=== PATIENT | male | born 1955 | race Caucasian/White ===

== ENCOUNTER 2021-09-30 09:52 | Inpatient (IN) | payer MEDICARE, OTHER, SELFPAY ==
[2021-09-30] VITALS (9 sets, daily range): BP systolic 112–136; BP diastolic 65–77; PULSE 71–115; RESP 16–35; TEMP 36.6–38; O2SAT 85–93; BMI 31.5; BMI 30.1
--- NOTE | 2021-09-30 10:04 | EKG12_ITS ---
Test Reason : SOB Blood Pressure : / mmHG Vent. Rate : 103 BPM Atrial Rate : 103 BPM P-R Int : 146 ms QRS Dur : 134 ms QT Int : 354 ms P-R-T Axes : 037 -07 115 degrees QTc Int : 463 ms Sinus tachycardia Left bundle branch block Abnormal ECG Confirmed by RENETTA KINNEY, SHER ([id number]), film editor supervisor CHIDI KATZ ([id number]) on 10/01/2021 11:36:23 AM Referred By: LEAH Confirmed By:SHER JACKSON MD
--- NOTE | 2021-09-30 10:05 | EDS_ITS ---
HPI History of Present Illness Chief Complaint: Shortness of Breath Informant: patient Narrative Narrative: 66-year-old male presenting via EMS from [facility] urgent care where he was noted to be hypoxic and febrile. Patient is deaf and and reads lips. He tells me he first got sick on 11 September. Apparently he went to urgent care and was prescribed doxycycline albuterol prednisone and Tessalon Perles. States he did not get any better so he went back today. He reports not having a primary care physician. He denies any medical problems. He is not Covid vaccinated. [facility] Medical History (Updated 09/30/21 @ 11:[address] Micah Rutledge DO) Deaf Medical History unable to obtain Home Medications NK 09/30/21 [History Last Taken Unknown] Allergy/AdvReac Type Severity Reaction Status Date / Time No Known Allergies Allergy Verified 09/30/21 10:01 Surgical History unable to obtain Social History (Updated 09/30/21 @ 10:[address] Micah Rutledge DO) Smoking Status: Current every day smoker tobacco type: cigarettes substance use type: does not use ROS ROS ED Constitutional Constitutional ED: Reports fever(s); Denies chills or weight loss Eyes Eyes: Denies change in vision or diplopia ENT ENT ED: Reports rhinorrhea and sore throat; Denies ear pain Cardiovascular Cardiovascular: Denies chest pain, orthopnea, palpitations or racing heartbeat Respiratory/Chest Respiratory/Chest: Reports cough, dyspnea and dyspnea on exertion; Denies orthopnea Gastrointestinal Gastrointestinal: Denies abdominal pain, diarrhea, nausea or vomiting Genitourinary Genitourinary ED: Denies dysuria, hematuria or urinary frequency Musculoskeletal Musculoskeletal: Reports myalgias; Denies arthralgias Integumentary Denies abscess or rash Neurologic Neurologic: Denies headache(s) or weakness Psychiatric Psychiatric: Denies anxiety, depression, suicidal ideation or suicidal thoughts Endocrine Endocrinology: Denies polydipsia, polyphagia or polyuria Allergic/Immunologic Allergic/Immunologic ED: Denies mouth swelling, tongue swelling or urticaria EXAM Physical Exam Const Vital Signs: 09/30/21 09:54 09/30/21 09:56 09/30/21 10:05 Temperature 100.4 F H 100.4 F H Temperature Source Oral Oral Pulse Rate 101 H 115 H Respiratory Rate 30 H 35 H Respiratory Effort Respiratory Depth Respiratory Pattern Blood Pressure 136/74 H 136/74 H Blood Pressure Mean 94 94 Pulse Ox 85 91 93 Oxygen Delivery Method Room Air Nasal Cannula Nasal Cannula Oxygen Flow Rate (L/min) 4 4 09/30/21 10:34 09/30/21 11:00 Temperature Temperature Source Pulse Rate 88 Respiratory Rate 19 H Respiratory Effort Short of Breath Labored Accessory Muscle Use Respiratory Depth Shallow Respiratory Pattern Tachypnea Blood Pressure 134/69 H Blood Pressure Mean 90 Pulse Ox 90 Oxygen Delivery Method Nasal Cannula Nasal Cannula Oxygen Flow Rate (L/min) 3 5 Positive well nourished and well developed General Appearance ED: well developed HEENT Reports normocephalic, head/scalp atraumatic, TM's clear and moist mucous membranes Negative for atraumatic Tympanic Membrane ED: Yes TM's clear Eyes PERRL and EOMs intact bilaterally Neck no lymphadenopathy, supple and no JVD Resp normal respiratory effort and clear to auscultation bilaterally Cardio regular rhythm and no murmurs Rate: tachycardic GI normal to inspection, nondistended, normoactive bowel sounds and non-tender Palpation: soft Back/Spine no CVA tenderness and normal ROM Extremity normal to inspection General Extremety ED: Negative for edema General Extremity: Negative for edema Neuro oriented x3 and CN's II-XII intact bilaterally Sensorium / Orientation: alert Motor Exam: strength 5/5 throughout Psych mental status grossly normal Mood & Affect: Negative for depressed or tearful Skin no rashes or lesions noted and no wounds MDM MDM MDM Narrative Medical decision making narrative: Patient's white count is 6 lactic acid 1.2. Troponin 45. My interpretation of the chest x-ray is diffuse pulmonary infiltrates. CTA of the chest does not demonstrate any pulmonary embolism but is consistent with pneumonitis. Patient will receive Decadron. I will also write for Tylenol. He is currently requiring 5 L nasal cannula at rest for pulse ox of 90%. Lab Data Attestation: I reviewed the patient's lab results. Labs: Laboratory Results - last 24 hr 09/30/21 09/30/21 09/30/21 09:55 09:55 10:15 WBC 6.0 RBC 5.60 Hgb 16.7 H Hct 49.8 MCV 88.9 MCH 29.8 MCHC 33.5 RDW Std Deviation 46.8 H RDW Coeff of [place] 14.2 Plt Count 106 L MPV 12.2 H Immature Gran % (Auto) 0.500 Neut % (Auto) 81.9 H Lymph % (Auto) 13.0 L [place] % (Auto) 4.3 Eos % (Auto) 0.0 Baso % (Auto) 0.3 Absolute Neuts (auto) 4.9 Absolute Lymphs (auto) 0.78 L Nucleated RBC % 0 Sodium 136 Potassium 3.9 Chloride 102 Carbon Dioxide 26.0 Anion Gap 8 BUN 20 H Creatinine 1.02 Estim Creat Clear Calc 74.85 Est GFR (MDRD) Af Amer 94 Est GFR (MDRD) Non-Af 77 BUN/Creatinine Ratio 19.6 Glucose 123 H Lactic Acid 1.2 Calcium 8.2 L Total Bilirubin 0.40 AST 103 H ALT 45 Alkaline Phosphatase 66 Troponin I High Sens 45 Total Protein 7.2 Albumin 2.8 L Globulin 4.4 H Albumin/Globulin Ratio 0.6 L Radiography Diagnostic Testing: Clinical Impression(s) from Imaging Studies Chest X-Ray 09/30/21 10:45 IMPRESSION: Bilateral pulmonary infiltrates worse in the right hemithorax in the peripheral distribution suggestive of pneumonitis associated with Covid. Electronically Signed: Jayesh Rivera MD at 11:02 EST , Service support , Chest CTA 09/30/21 10:53 IMPRESSION: No evidence of pulmonary embolism. Diffuse bilateral alveolar infiltrates worse in the right hemithorax. Pneumonitis secondary to Covid should be ruled out. Electronically Signed: Jayesh Rivera MD at 11:33 EST , Service support , EKG Initial EKG: Attestation: I personally reviewed and interpreted this EKG as follows: Comments: Sinus tachycardia with a ventricular rate of 103 bpm. Noted left bundle branch block Discharge Plan Dx/Rx/DC Orders Clinical Impression: COVID-19, Acute hypoxemic respiratory failure due to COVID-19 Disposition Disposition: [facility]
[2021-09-30 10:11] LABS: Absolute Lymphocyte Count 0.78 X10^3/uL (0.83-4.51); Absolute Neutrophil Count 4.9 X10^3/uL (2.0-7.7); Basophil# 0.02 X10^3/uL; Basophil% 0.3 % (0-1); Hematocrit 49.8 % (40-54); Hemoglobin 16.7 g/dL (13.0-16.5); Lymphocyte # 0.78 X10^3/ul (0.83-4.51); Mean Corp Hgb Conc 33.5 g/dL (32-36); Mean Corpuscular Hgb 29.8 pg (27.0-32.0); Mean Corpuscular Volume 88.9 fL (80-94); Mean Platelet Vol. 12.2 fl (6.2-12.0); Monocyte# 0.26 X10^3/uL; Monocyte% 4.3 % (0-10); NRBC Flagged by Analyzer 0 % (0-5); Neutrophil # 4.93 X10^3/uL (2.7-7.7); Neutrophil % 81.9 % (47-70); POSITIVE MORPHOLOGY YES; Platelet Count 106 K/mm3 (150-450); RBC Distribution Width CV 14.2 % (11.6-14.6); RBC Distribution Width SD 46.8 fl (35.1-43.9)
[2021-09-30 10:12] LABS: Differential Indicated SCAN CRITERIA MET
[2021-09-30 10:28] LABS: ALB/GLOB Ratio 0.6 RATIO (0.9-2.4); AST(SGOT) 103 U/L (15-37); Alanine Aminotransfer ALT/SGPT 45 U/L (16-61); Albumin, Serum 2.8 g/dL (3.2-5.0); Alkaline Phosphatase 66 U/L (45-117); Anion Gap 8 (5-15); BUN 20 mg/dL (7-18); BUN/Creat Ratio 19.6 RATIO (10-20); Calcium,Total 8.2 mg/dL (8.5-10.1); Chloride 102 mmol/L (98-107); Creatinine, Serum 1.02 mg/dL (0.70-1.30); EST Glomerular Filtration Rate 77 mL/min (>60); Est Glom Filt Rate - Afr Amer 94 mL/min (>60); Estimated Creatinine Clearance 74.85 ml/min; Globulin 4.4 g/dL (2.2-4.2); Glucose 123 mg/dL (74-106); Potassium 3.9 mmol/L (3.5-5.1); Protein, Total 7.2 g/dL (6.4-8.2); Sodium Level 136 mmol/L (136-145); Troponin-I HS 45 pg/mL (3.0-78.0)
--- NOTE | 2021-09-30 10:45 | RAD_ITS ---
STUDY: X-RAY CHEST REASON FOR EXAM: Male, 66 years old. Cough TECHNIQUE: Single AP portable view of the chest. COMPARISON: None. FINDINGS: EKG electrodes are seen. Patchy bilateral pulmonary infiltrates worse in the right hemithorax with a tendency to worry peripheral distribution. No pneumonitis secondary to Covid should be ruled out. There is no demonstrated pleural abnormality. Normal size heart. Normal mediastinum and tamela. Normal visualized pulmonary arteries. Normal visualized aortic arch and descending thoracic aorta. Normal visualized thoracic spine. Normal visualized ribs, clavicles, and shoulders. There is no demonstrated abnormality of the visualized soft tissue structures of the upper abdomen. RAD/Chest 1 View (Portable) IMPRESSION: Bilateral pulmonary infiltrates worse in the right hemithorax in the peripheral distribution suggestive of pneumonitis associated with Covid. Electronically Signed: Jayesh Rivera MD at 11:02 EST , Service support ,
--- NOTE | 2021-09-30 10:53 | CT_ITS ---
STUDY: CTA CHEST REASON FOR EXAM: Male, 66 years old. Fever. Decreased pulse oximetry and shortness of breath. RADIATION DOSAGE (If Supplied By Facility): CTDIvol = ( 11.82 ) mGy, DLP = ( 480.69 ) mGycm TECHNIQUE: The examination was performed with the intravenous administration of IV 100mL Isovue-370. Post-processing of the angiographic images was performed, with multiplanar reformation and 3D reconstruction. Individualized dose optimization techniques were used for this CT. COMPARISON: Comparison is made with prior chest radiograph done earlier today. FINDINGS: Normal enhancement of the main pulmonary artery and right and left pulmonary arteries. Normal enhancement of the bilateral peripheral pulmonary arteries. There is no demonstrated pulmonary embolism. Normal thoracic aorta and visualized great vessels. There is no demonstrated aortic dissection. There are calcifications of the coronary arteries. Normal mediastinum. Normal hilar regions. Normal visualized trachea and bronchi. The lungs are well expanded. Diffuse bilateral alveolar infiltrates involving both upper and lower lobes worse in the right hemithorax. Pneumonitis secondary to Covid should be ruled out. Normal pleura. Normal chest wall structures. Normal osseous structures. Normal visualized upper abdomen. CT/CTA Chest W/WO Contrast IMPRESSION: No evidence of pulmonary embolism. Diffuse bilateral alveolar infiltrates worse in the right hemithorax. Pneumonitis secondary to Covid should be ruled out. Electronically Signed: Jayesh Rivera MD at 11:33 EST , Service support ,
[2021-09-30 10:57] LABS: Lactic Acid 1.2 mmol/L (0.4-1.9)
[2021-09-30] MEDS: Acetaminophen 500 MG Tablet 1000 MG PO (12:00)
[2021-09-30] MEDS: dexAMETHasone 4 MG Tablet 6 MG PO (12:00)
--- NOTE | 2021-09-30 18:20 | PCM.HP.STD ---
HPI - General General Date of Admission: 09/30/21 HPI Narrative BELLO SANTIAGO, is a 66 M who presents from home with worsening coughing and shortness of breath. He states that he started out with rhinorrhea on 09/11/2021. He said that this was feeling okay for about 10 days and then over the last 7days his coughing has gotten worse and his shortness of breath has gotten worse. He got tested for Covid today and had a positive PCR with a negative antigen. He is unvaccinated. He does not require oxygen at baseline and is coming in the edition on 5 L nasal cannula. He is 20 days with symptoms therefore he is outside the window for remdesivir, will continue with Decadron. He states that he was initially told that he had an upper respiratory infection and bronchitis so did have a course of prednisone as an outpatient as well. [facility] Medical History Deaf Smoker Medical History unable to obtain Home Medications NK 09/30/21 [History Last Taken Unknown] Allergy/AdvReac Type Severity Reaction Status Date / Time No Known Allergies Allergy Verified 09/30/21 10:01 Family History (Updated 09/30/21 @ 18:[address] River Quiroz MD) Other CVA (cerebral vascular accident) Cancer Surgical History unable to obtain no surgical history Social History (Updated 09/30/21 @ 10:[address] Micah Rutledge DO) Smoking Status: Current every day smoker tobacco type: cigarettes substance use type: does not use ROS Constitutional Constitutional: Reports fever(s); Denies chills, fatigue or malaise Eyes Eyes: Denies blurry vision ENT HEENT: Denies headache(s) or nasal discharge Cardiovascular Cardiovascular: Denies chest pain, dyspnea on exertion or syncope Respiratory/Chest Respiratory/Chest: Reports cough and shortness of breath at rest; Denies shortness of breath with exertion Gastrointestinal Gastrointestinal: Denies constipation, diarrhea, nausea or vomiting Genitourinary Genitourinary: Denies dysuria Neurologic Neurologic: Denies focal weakness, numbness or tremor(s) Psychiatric Psychiatric: Denies anxiety or depression Vital Signs Vital Signs Vital Signs: 09/30/21 09:54 09/30/21 09:56 09/30/21 10:05 Temperature 100.4 F H 100.4 F H Temperature Source Oral Oral Pulse Rate 101 H 115 H Respiratory Rate 30 H 35 H Respiratory Effort Respiratory Depth Respiratory Pattern Blood Pressure 136/74 H 136/74 H Blood Pressure Mean 94 94 Blood Pressure Source Blood Pressure Position Blood Pressure Location Pulse Ox 85 91 93 Oxygen Delivery Method Room Air Nasal Cannula Nasal Cannula Oxygen Flow Rate (L/min) 4 4 09/30/21 10:34 09/30/21 11:00 09/30/21 12:13 Temperature 98.3 F Temperature Source Temporal Pulse Rate 88 102 H Respiratory Rate 19 H 24 H Respiratory Effort Short of Breath Labored Accessory Muscle Use Respiratory Depth Shallow Respiratory Pattern Tachypnea Blood Pressure 134/69 H 133/70 H Blood Pressure Mean 90 91 Blood Pressure Source Blood Pressure Position Blood Pressure Location Pulse Ox 90 93 Oxygen Delivery Method Nasal Cannula Nasal Cannula Nasal Cannula Oxygen Flow Rate (L/min) 3 5 09/30/21 13:05 09/30/21 14:42 09/30/21 15:49 Temperature 98.6 F Temperature Source Oral Pulse Rate 71 Respiratory Rate 16 Respiratory Effort Normal Respiratory Depth Normal Respiratory Pattern Normal Blood Pressure 112/65 Blood Pressure Mean 80 Blood Pressure Source Monitor Blood Pressure Position Semi-Fowlers Blood Pressure Location Right Arm Pulse Ox 92 Oxygen Delivery Method Room Air High Flow High Flow Oxygen Flow Rate (L/min) 8 8 09/30/21 15:51 Temperature Temperature Source Pulse Rate Respiratory Rate Respiratory Effort Normal Respiratory Depth Normal Respiratory Pattern Normal Blood Pressure Blood Pressure Mean Blood Pressure Source Blood Pressure Position Blood Pressure Location Pulse Ox 92 Oxygen Delivery Method Nasal Cannula Oxygen Flow Rate (L/min) 10 Weight Weight: 216 lb 4.375 oz Body Mass Index (BMI) 30.1 Physical Exam Const alert, oriented x3 and no apparent distress General Appearance: cooperative HEENT normocephalic and moist oral mucous membranes Eyes PERRL, EOMs intact bilaterally and conjunctivae normal Neck supple and no JVD Resp normal respiratory effort, no retractions and no use of accessory muscles Auscultation: crackles; Negative for rales, rhonchi or wheezes Cardio regular rate, regular rhythm, S1 normal heart sound, S2 normal heart sound and no murmurs GI soft to palpation, non-tender and non-distended; Negative for hepatosplenomegaly Extremity no clubbing, cyanosis or edema Skin no rashes or lesions noted Neuro no focal motor deficits and no sensory deficits noted Psych affect normal Appearance: appropriate Results Lab / Micro Data Result Diagrams: 09/30/21 09:55 11/10/21 09:55 Labs: Laboratory Results - last 24 hr 09/30/21 09:55: WBC 6.0, RBC 5.60, Hgb 16.7 H, Hct 49.8, MCV 88.9, MCH 29.8, MCHC 33.5, RDW Std Deviation 46.8 H, RDW Coeff of [place] 14.2, Plt Count 106 L, MPV 12.2 H, Immature Gran % (Auto) 0.500, Neut % (Auto) 81.9 H, Lymph % (Auto) 13.0 L, [place] % (Auto) 4.3, Eos % (Auto) 0.0, Baso % (Auto) 0.3, Absolute Neuts (auto) 4.9, Absolute Lymphs (auto) 0.78 L, Nucleated RBC % 0 09/30/21 09:55: Sodium 136, Potassium 3.9, Chloride 102, Carbon Dioxide 26.0, Anion Gap 8, BUN 20 H, Creatinine 1.02, Estim Creat Clear Calc 74.85, Est GFR (MDRD) Af Amer 94, Est GFR (MDRD) Non-Af 77, BUN/Creatinine Ratio 19.6, Glucose 123 H, Calcium 8.2 L, Total Bilirubin 0.40, AST 103 H, ALT 45, Alkaline Phosphatase 66, Troponin I High Sens 45, Total Protein 7.2, Albumin 2.8 L, Globulin 4.4 H, Albumin/Globulin Ratio 0.6 L 09/30/21 10:15: Lactic Acid 1.2 09/30/21 11:08: COVID-19 ([place]) Detected Micro: Microbiology 09/30/21 10:00 Nasal Secretion SARS-CoV-2 Antigen (Rapid) - Final Radiology Impression Chest X-Ray 09/30/21 10:45 IMPRESSION: Bilateral pulmonary infiltrates worse in the right hemithorax in the peripheral distribution suggestive of pneumonitis associated with Covid. Electronically Signed: Jayesh Rivera MD at 11:02 EST , Service support , Chest CTA 09/30/21 10:53 IMPRESSION: No evidence of pulmonary embolism. Diffuse bilateral alveolar infiltrates worse in the right hemithorax. Pneumonitis secondary to Covid should be ruled out. Electronically Signed: Jayesh Rivera MD at 11:33 EST , Service support , Assessment & Plan Assessment/Plan (1) Acute hypoxemic respiratory failure due to COVID-19: PLAN: 1. Acute hypoxic respiratory failure secondary to COVID-19 pneumonia -Symptoms started about 20 days ago therefore he'll be out of the office tomorrow -CT of the chest was negative for PE -Continue with Decadron but does not meet requirements for remdesivir -Continue with a dose of Lasix secondary to crackles -Currently afebrile without a leukocytosis therefore we'll hold off on any empiric antibiotics DVT: Lovenox Charges/Coding Visit Charges Inpatient E&M: 82888 Init Hosp L2
[2021-09-30] MEDS: Furosemide 20 MG/2 ML VIAL IV (20:43)
[2021-09-30] MEDS: 0.9% Saline Lock 10 ML Syringe IV (20:43)
--- NOTE | 2021-10-01 00:46 | PCS.PANDOC ---
PANDEMIC DOCUMENTATION INITIATED: Date: 09/30/2021 Time:
[2021-10-01 05:43] VITALS: BP 137/71; PULSE 77; RESP 18; TEMP 37.2; O2SAT 93
[2021-10-01 07:00] VITALS: O2SAT 89
[2021-10-01 08:00] LABS: Absolute Lymphocyte Count 0.91 X10^3/uL (0.83-4.51); Absolute Neutrophil Count 6.2 X10^3/uL (2.0-7.7); Basophil# 0.01 X10^3/uL; Basophil% 0.1 % (0-1); Hematocrit 47.8 % (40-54); Hemoglobin 16.4 g/dL (13.0-16.5); Lymphocyte # 0.91 X10^3/ul (0.83-4.51); Lymphocyte % 12.5 % (19-41); Mean Corp Hgb Conc 34.3 g/dL (32-36); Mean Corpuscular Hgb 30.1 pg (27.0-32.0); Mean Corpuscular Volume 87.9 fL (80-94); Mean Platelet Vol. 12.8 fl (6.2-12.0); Monocyte# 0.16 X10^3/uL; Monocyte% 2.2 % (0-10); NRBC Flagged by Analyzer 0 % (0-5); Neutrophil # 6.19 X10^3/uL (2.7-7.7); Neutrophil % 84.8 % (47-70); POSITIVE MORPHOLOGY YES; Platelet Count 125 K/mm3 (150-450); RBC Distribution Width CV 14.5 % (11.6-14.6); RBC Distribution Width SD 46.5 fl (35.1-43.9); Red Blood Count 5.44 M/mm3 (4.6-6.2); White Blood Count 7.3 K/mm3 (4.4-11.0)
[2021-10-01 08:05] LABS: Differential Indicated SCAN CRITERIA MET
[2021-10-01 08:39] LABS: Anion Gap 9 (5-15); BUN 24 mg/dL (7-18); BUN/Creat Ratio 31.6 RATIO (10-20); Calcium,Total 8.5 mg/dL (8.5-10.1); Chloride 103 mmol/L (98-107); Creatinine, Serum 0.76 mg/dL (0.70-1.30); EST Glomerular Filtration Rate 109 mL/min (>60); Est Glom Filt Rate - Afr Amer 131 mL/min (>60); Estimated Creatinine Clearance 76.35 ml/min; Glucose 161 mg/dL (74-106); Sodium Level 135 mmol/L (136-145)
[2021-10-01] MEDS: Enoxaparin 40 MG/0.4 ML Syringe SC (08:50)
[2021-10-01] MEDS: dexAMETHasone 4 MG Tablet 6 MG PO (08:51)
--- NOTE | 2021-10-01 11:18 | PCM.PN.HOSP ---
Subjective Subjective Feels little better, oxygen requirements are now up to 8 L Objective Data Objective Data Vital Signs: Vital Signs Temp Pulse Resp BP Pulse Ox 99 F 77 18 137/71 H 93 10/01/21 05:43 10/01/21 05:43 10/01/21 05:43 10/01/21 05:43 10/01/21 05:43 Oxygen Flow Rate (L/min) 8 Oxygen Delivery Method Nasal Cannula Weight: 216 lb 4.375 oz Body Mass Index (BMI) 30.1 Intake & Output: Intake and Output for Last 24 Hours 09/30/21 10/01/21 10/02/21 03:59 03:59 03:59 Output Total 350 / 350 800 / 800 Balance -350 / -350 -800 / -800 Lab / Micro Data Result Diagrams: 10/01/21 07:15 10/01/21 07:15 Labs: Laboratory Results - last 24 hr 09/30/21 11:08: COVID-19 ([place]) Detected 10/01/21 07:15: WBC 7.3, RBC 5.44, Hgb 16.4, Hct 47.8, MCV 87.9, MCH 30.1, MCHC 34.3, RDW Std Deviation 46.5 H, RDW Coeff of [place] 14.5, Plt Count 125 L, MPV 12.8 H, Immature Gran % (Auto) 0.400, Neut % (Auto) 84.8 H, Lymph % (Auto) 12.5 L, [place] % (Auto) 2.2, Eos % (Auto) 0.0, Baso % (Auto) 0.1, Absolute Neuts (auto) 6.2, Absolute Lymphs (auto) 0.91, Nucleated RBC % 0 10/01/21 07:15: Sodium 135 L, Potassium 4.0, Chloride 103, Carbon Dioxide 23.0, Anion Gap 9, BUN 24 H, Creatinine 0.76, Estim Creat Clear Calc 76.35, Est GFR (MDRD) Af Amer 131, Est GFR (MDRD) Non-Af 109, BUN/Creatinine Ratio 31.6 H, Glucose 161 H, Calcium 8.5 Micro: Microbiology 09/30/21 10:00 Nasal Secretion SARS-CoV-2 Antigen (Rapid) - Final Radiography Diagnostic Testing: Radiology Impression Chest CTA 09/30/21 10:53 IMPRESSION: No evidence of pulmonary embolism. Diffuse bilateral alveolar infiltrates worse in the right hemithorax. Pneumonitis secondary to Covid should be ruled out. Electronically Signed: Jayesh Rivera MD at 11:33 EST , Service support , Physical Exam Const alert, oriented x3 and no apparent distress General Appearance: cooperative HEENT normocephalic and moist oral mucous membranes Eyes PERRL, EOMs intact bilaterally and conjunctivae normal Neck supple and no JVD Resp normal respiratory effort, no retractions and no use of accessory muscles Auscultation: crackles; Negative for rales, rhonchi or wheezes Cardio regular rate, regular rhythm, S1 normal heart sound, S2 normal heart sound and no murmurs GI soft to palpation, non-tender and non-distended; Negative for hepatosplenomegaly Extremity no clubbing, cyanosis or edema Skin no rashes or lesions noted Neuro no focal motor deficits and no sensory deficits noted Psych affect normal Appearance: appropriate Assessment & Plan Assessment/Plan (1) Acute hypoxemic respiratory failure due to COVID-19: PLAN: 1. Acute hypoxic respiratory failure secondary to COVID-19 pneumonia -Symptoms started about 20 days ago therefore he'll be out of the office tomorrow -CT of the chest was negative for PE -Continue with Decadron but does not meet requirements for remdesivir -Continue with a dose of Lasix secondary to crackles -Currently afebrile without a leukocytosis therefore we'll hold off on any empiric antibiotics DVT: Lovenox Charges/Coding Visit Charges Inpatient E&M: 85671 Subs Hosp L2
[2021-10-01] MEDS: Furosemide 20 MG/2 ML VIAL IV (11:48)
[2021-10-01] MEDS: 0.9% Saline Lock 10 ML Syringe IV (11:48)
--- NOTE | 2021-10-01 13:30 | CASEMGMT ---
RN CM RADIO DIVISION CAPTAIN CM to room to meet with patient for initial transition planning/care coordination assessment. MIGUELINA GURROLA introduced self and role at [facility]. Pt voices understanding and consents to assessment at this time. Pt sitting up in recliner chair in no distress at this time. Pt is A/O at this time and answers all questions appropriately. Pt is deaf, but able to read lips well. Care providers, pharmacy, and demographics verified/updated at this time. PCP: No PCP. States the last PCP he had moved away and he has not seen anyone for about 3 years. Provided w/list of local PCP's. Specialists: none Preferred Pharmacy: [facility] Retail Insurance: MCR, [employer] Prescription Benefit: Yes Living Will/HPOA: Pt does not currently have LW/HCPOA and would like to talk w/SW to completed. Pt would like to list daughter, Caitlin Drake, as POA. SW, Susie, made aware. LNOK: , Melissa. Pt states they have been for 28 years but plan to divorce next year. They have 5 children and 11 grandchildren. Living Arrangements: Lives w/ in ranch-style home w/basement. Denies difficulty w/stairs. 2-3 steps to enter home. Independent w/ADL's. does most home mgmt tasks. Transportation: Pt states drives self and states no transportation concerns at this time. Pt states he drove himself to the ER and his dtr, Caitlin, took his vehicle home. Family will help get pt back home. DME: Rt [employer]KA prosthesis. Does not have home O2. Verbally reviewed list of local DME companies w/pt and he chooses [employer]. Pt states no need for further DME at this time. HHC/SNF: No hx of either. Pt denies needs and no needs identified. Pt wishes to return home and states has no concerns with going home at time of discharge. CM to follow for home oxygen needs and any further discharge planning/needs. Pt voices no further concerns/needs at this time. Advised pt to ask for CM if any further questions/concerns/needs arise. Voices understanding. PLAN: Home. Follow for possible need of Home O2. Rocio MULTANI RN, CM
--- NOTE | 2021-10-01 14:29 | CASEMGMT ---
Social Work Completed advanced directives with patient. Pt named Caitlin prieto. Contacted Caitlin to verify she agrees and contact information - confirmed. Copies placed on chart. Rosalinda Rosen, RADIOLOGIC TECHNOLOGIST MAMMOGRAM SCIENTOLOGIST
[2021-10-01 14:39] VITALS: BP 107/59; PULSE 88; RESP 18; TEMP 37.2; O2SAT 94
--- NOTE | 2021-10-01 18:01 | NURSING ---
Pt sitting up in chair with eyes closed. no discomfort noted.
[2021-10-01 21:27] VITALS: BP 120/73; PULSE 76; RESP 18; TEMP 36.7; O2SAT 93
[2021-10-02] VITALS (9 sets, daily range): BP systolic 122–127; BP diastolic 68–78; PULSE 70–87; RESP 18–20; TEMP 36.6–37.3; O2SAT 90–93
[2021-10-02 06:43] LABS: Anion Gap 8 (5-15); BUN 29 mg/dL (7-18); BUN/Creat Ratio 32.4 RATIO (10-20); Calcium,Total 8.5 mg/dL (8.5-10.1); Chloride 102 mmol/L (98-107); Creatinine, Serum 0.89 mg/dL (0.70-1.30); EST Glomerular Filtration Rate 90 mL/min (>60); Est Glom Filt Rate - Afr Amer 109 mL/min (>60); Estimated Creatinine Clearance 85.78 ml/min; Glucose 136 mg/dL (74-106); Potassium 4.4 mmol/L (3.5-5.1); Sodium Level 135 mmol/L (136-145)
[2021-10-02] MEDS: dexAMETHasone 4 MG Tablet 6 MG PO (09:09)
[2021-10-02] MEDS: Enoxaparin 40 MG/0.4 ML Syringe SC (09:09)
--- NOTE | 2021-10-02 09:15 | NURSING ---
attempt to call daughter julia roque unsuccessful, no answer-will try later
--- NOTE | 2021-10-02 15:24 | PCM.PN.HOSP ---
Subjective Subjective Feels subjectively better than he did when he came in. Still requiring about 10 L nasal cannula Objective Data Objective Data Vital Signs: Vital Signs Temp Pulse Resp BP Pulse Ox 99.1 F 76 20 H 123/69 H 91 10/02/21 09:04 10/02/21 11:00 10/02/21 09:04 10/02/21 09:04 10/02/21 11:00 Oxygen Flow Rate (L/min) 10 Oxygen Delivery Method Nasal Cannula Weight: 216 lb 4.375 oz Body Mass Index (BMI) 30.1 Intake & Output: Intake and Output for Last 24 Hours 10/01/21 10/02/21 10/03/21 03:59 03:59 03:59 Intake Total 350 / 350 Output Total 350 / 350 1325 / 1325 700 / 700 Balance -350 / -350 -1325 / -1325 -350 / -350 Lab / Micro Data Result Diagrams: 10/01/21 07:15 10/02/21 05:40 Labs: Laboratory Results - last 24 hr 10/02/21 05:40: Sodium 135 L, Potassium 4.4, Chloride 102, Carbon Dioxide 25.0, Anion Gap 8, BUN 29 H, Creatinine 0.89, Estim Creat Clear Calc 85.78, Est GFR (MDRD) Af Amer 109, Est GFR (MDRD) Non-Af 90, BUN/Creatinine Ratio 32.4 H, Glucose 136 H, Calcium 8.5 Micro: Microbiology 09/30/21 10:15 Blood Culture (Wb) - Right Hand Blood Culture - Preliminary No growth in 48 hours. 09/30/21 10:15 Blood Culture (Wb) - Anticubital Right Blood Culture - Preliminary No growth in 48 hours. 09/30/21 10:00 Nasal Secretion SARS-CoV-2 Antigen (Rapid) - Final Physical Exam Const alert, oriented x3 and no apparent distress General Appearance: cooperative HEENT normocephalic and moist oral mucous membranes Eyes PERRL, EOMs intact bilaterally and conjunctivae normal Neck supple and no JVD Resp normal respiratory effort, no retractions and no use of accessory muscles Auscultation: crackles; Negative for rales, rhonchi or wheezes Cardio regular rate, regular rhythm, S1 normal heart sound, S2 normal heart sound and no murmurs GI soft to palpation, non-tender and non-distended; Negative for hepatosplenomegaly Extremity no clubbing, cyanosis or edema Skin no rashes or lesions noted Neuro no focal motor deficits and no sensory deficits noted Psych affect normal Appearance: appropriate Assessment & Plan Assessment/Plan (1) Acute hypoxemic respiratory failure due to COVID-19: PLAN: 1. Acute hypoxic respiratory failure secondary to COVID-19 pneumonia -He is out of precautions -CT of the chest was negative for PE -Continue with Decadron but does not meet requirements for remdesivir -Continue with a dose of Lasix secondary to crackles -Currently afebrile without a leukocytosis therefore we'll hold off on any empiric antibiotics DVT: Lovenox Charges/Coding Visit Charges Inpatient E&M: 56831 Subs Hosp L2
[2021-10-02] MEDS: Furosemide 40 MG/4 ML Vial IV (15:29)
[2021-10-02] MEDS: 0.9% Saline Lock 10 ML Syringe IV (15:30)
[2021-10-03] VITALS (14 sets, daily range): BP systolic 112–137; BP diastolic 66–76; PULSE 60–88; RESP 16–22; TEMP 36.6–36.9; O2SAT 90–95
--- NOTE | 2021-10-03 05:03 | CPS ---
rt called to 316 due to desaturation. Nursing informed rt that patient was increased to 14 lpm via green high flow nc. patient was 86% at time of visit. patient placed on airvo starting at 20 lpm. rt had to gradually increase patient to 35 lpm at 90% to achieve a sp02 of 90-91%. patients nurse aware.
[2021-10-03 09:23] LABS: Absolute Lymphocyte Count 2.07 X10^3/uL (0.83-4.51); Absolute Neutrophil Count 8.6 X10^3/uL (2.0-7.7); Basophil# 0.06 X10^3/uL; Basophil% 0.5 % (0-1); Eosinophil# 0.04 X10^3/uL; Eosinophils% 0.4 % (0-5); Hematocrit 49.2 % (40-54); Hemoglobin 16.7 g/dL (13.0-16.5); Lymphocyte # 2.07 X10^3/ul (0.83-4.51); Lymphocyte % 18.7 % (19-41); Mean Corp Hgb Conc 33.9 g/dL (32-36); Mean Corpuscular Volume 88.5 fL (80-94); Mean Platelet Vol. 12.4 fl (6.2-12.0); Monocyte# 0.26 X10^3/uL; Monocyte% 2.3 % (0-10); NRBC Flagged by Analyzer 0 % (0-5); Neutrophil # 8.58 X10^3/uL (2.7-7.7); Neutrophil % 77.6 % (47-70); POSITIVE MORPHOLOGY YES; Platelet Count 179 K/mm3 (150-450); RBC Distribution Width CV 14.3 % (11.6-14.6); RBC Distribution Width SD 46.1 fl (35.1-43.9); Red Blood Count 5.56 M/mm3 (4.6-6.2); White Blood Count 11.1 K/mm3 (4.4-11.0)
[2021-10-03 09:40] LABS: Anion Gap 6 (5-15); BUN 38 mg/dL (7-18); Calcium,Total 8.6 mg/dL (8.5-10.1); Chloride 104 mmol/L (98-107); Creatinine, Serum 0.88 mg/dL (0.70-1.30); EST Glomerular Filtration Rate 91 mL/min (>60); Est Glom Filt Rate - Afr Amer 111 mL/min (>60); Estimated Creatinine Clearance 86.76 ml/min; Glucose 134 mg/dL (74-106); Potassium 4.5 mmol/L (3.5-5.1); Sodium Level 136 mmol/L (136-145)
[2021-10-03 09:44] LABS: Differential Indicated SCAN CRITERIA MET
[2021-10-03] MEDS: dexAMETHasone 4 MG Tablet 6 MG PO (09:45)
[2021-10-03] MEDS: Enoxaparin 40 MG/0.4 ML Syringe SC (09:45)
[2021-10-03 09:59] LABS: Atypical Lymphocyte 1+ %; Differential Comment SCANNED
[2021-10-03] MEDS: 0.9% Saline Lock 10 ML Syringe IV (11:07)
[2021-10-03] MEDS: Furosemide 40 MG/4 ML Vial IV (11:08)
--- NOTE | 2021-10-03 12:38 | PCM.PN.HOSP ---
Subjective Subjective Doing well but requiring increased oxygen requirements and now is on air Vo at 35 L/min at an FiO2 of 90%. Objective Data Objective Data Vital Signs: Vital Signs Temp Pulse Resp BP Pulse Ox 97.9 F 67 22 H 112/70 94 10/03/21 09:00 10/03/21 12:00 10/03/21 09:00 10/03/21 09:00 10/03/21 12:00 Oxygen Flow Rate (L/min) 35 Oxygen Delivery Method Airvo Weight: 216 lb 4.375 oz Body Mass Index (BMI) 30.1 Intake & Output: Intake and Output for Last 24 Hours 10/02/21 10/03/21 10/04/21 03:59 03:59 03:59 Intake Total 700 / 700 300 / 300 Output Total 1325 / 1325 1800 / 1800 600 / 600 Balance -1325 / -1325 -1100 / -1100 -300 / -300 Lab / Micro Data Result Diagrams: 10/03/21 09:00 10/03/21 09:00 Labs: Laboratory Results - last 24 hr 10/03/21 09:00: WBC 11.1 H, RBC 5.56, Hgb 16.7 H, Hct 49.2, MCV 88.5, MCH 30.0, MCHC 33.9, RDW Std Deviation 46.1 H, RDW Coeff of [place] 14.3, Plt Count 179, MPV 12.4 H, Immature Gran % (Auto) 0.500, Neut % (Auto) 77.6 H, Lymph % (Auto) 18.7 L, [place] % (Auto) 2.3, Eos % (Auto) 0.4, Baso % (Auto) 0.5, Absolute Neuts (auto) 8.6 H, Absolute Lymphs (auto) 2.07, Nucleated RBC % 0, Differential Comment SCANNED, Atypical Lymphocytes 1+ 10/03/21 09:00: Sodium 136, Potassium 4.5, Chloride 104, Carbon Dioxide 26.0, Anion Gap 6, BUN 38 H, Creatinine 0.88, Estim Creat Clear Calc 86.76, Est GFR (MDRD) Af Amer 111, Est GFR (MDRD) Non-Af 91, BUN/Creatinine Ratio 43.0 H, Glucose 134 H, Calcium 8.6 Micro: Microbiology 09/30/21 10:15 Blood Culture (Wb) - Right Hand Blood Culture - Preliminary No growth in 48 hours. 09/30/21 10:15 Blood Culture (Wb) - Anticubital Right Blood Culture - Preliminary No growth in 48 hours. 09/30/21 10:00 Nasal Secretion SARS-CoV-2 Antigen (Rapid) - Final Physical Exam Const alert, oriented x3 and no apparent distress General Appearance: cooperative HEENT normocephalic and moist oral mucous membranes Eyes PERRL, EOMs intact bilaterally and conjunctivae normal Neck supple and no JVD Resp normal respiratory effort, no retractions and no use of accessory muscles Auscultation: crackles; Negative for rales, rhonchi or wheezes Cardio regular rate, regular rhythm, S1 normal heart sound, S2 normal heart sound and no murmurs GI soft to palpation, non-tender and non-distended; Negative for hepatosplenomegaly Extremity no clubbing, cyanosis or edema Skin no rashes or lesions noted Neuro no focal motor deficits and no sensory deficits noted Psych affect normal Appearance: appropriate Assessment & Plan Assessment/Plan (1) Acute hypoxemic respiratory failure due to COVID-19: PLAN: 1. Acute hypoxic respiratory failure secondary to COVID-19 pneumonia -He is out of precautions -CT of the chest was negative for PE -Continue with Decadron but does not meet requirements for remdesivir -Continue with a dose of Lasix secondary to crackles -Currently afebrile therefore we'll hold off on any empiric antibiotics -Given his increased oxygen requirements with careful, I will consult infectious disease and start him on baricitinib DVT: Lovenox Charges/Coding Visit Charges Inpatient E&M: 31623 Subs Hosp L2
[2021-10-04] VITALS (16 sets, daily range): BP systolic 121–127; BP diastolic 68–78; PULSE 56–82; RESP 18–28; TEMP 36.4–36.7; O2SAT 86–94
[2021-10-04 08:03] LABS: Absolute Neutrophil Count 7.3 X10^3/uL (2.0-7.7); Basophil# 0.03 X10^3/uL; Basophil% 0.3 % (0-1); Hematocrit 46.4 % (40-54); Hemoglobin 15.7 g/dL (13.0-16.5); Mean Corp Hgb Conc 33.8 g/dL (32-36); Mean Corpuscular Hgb 29.7 pg (27.0-32.0); Mean Corpuscular Volume 87.9 fL (80-94); Mean Platelet Vol. 12.4 fl (6.2-12.0); Monocyte% 5.4 % (0-10); NRBC Flagged by Analyzer 0 % (0-5); Neutrophil # 7.33 X10^3/uL (2.7-7.7); Neutrophil % 78.5 % (47-70); POSITIVE MORPHOLOGY YES; Platelet Count 205 K/mm3 (150-450); RBC Distribution Width CV 13.9 % (11.6-14.6); RBC Distribution Width SD 45.1 fl (35.1-43.9); Red Blood Count 5.28 M/mm3 (4.6-6.2); White Blood Count 9.3 K/mm3 (4.4-11.0)
[2021-10-04 08:08] LABS: Differential Indicated SCAN CRITERIA MET
[2021-10-04 08:20] LABS: ALB/GLOB Ratio 0.4 RATIO (0.9-2.4); AST(SGOT) 72 U/L (15-37); Alanine Aminotransfer ALT/SGPT 62 U/L (16-61); Albumin, Serum 2.1 g/dL (3.2-5.0); Alkaline Phosphatase 59 U/L (45-117); Anion Gap 8 (5-15); BUN 44 mg/dL (7-18); BUN/Creat Ratio 53.2 RATIO (10-20); Calcium,Total 8.5 mg/dL (8.5-10.1); Chloride 102 mmol/L (98-107); Creatinine, Serum 0.83 mg/dL (0.70-1.30); EST Glomerular Filtration Rate 99 mL/min (>60); Est Glom Filt Rate - Afr Amer 119 mL/min (>60); Estimated Creatinine Clearance 91.98 ml/min; Globulin 4.7 g/dL (2.2-4.2); Glucose 116 mg/dL (74-106); Potassium 4.3 mmol/L (3.5-5.1); Protein, Total 6.8 g/dL (6.4-8.2); Sodium Level 137 mmol/L (136-145)
[2021-10-04 09:21] LABS: Atypical Lymphocyte 1+ %; Differential Comment SCANNED
--- NOTE | 2021-10-04 09:54 | PN.HOSP_ITS ---
Subjective Subjective Doing well, no issues overnight. Stable on Arava Objective Data Objective Data Vital Signs: Vital Signs Temp Pulse Resp BP Pulse Ox 97.9 F 67 18 127/73 H 88 10/04/21 02:44 10/04/21 07:41 10/04/21 02:44 10/04/21 02:44 10/04/21 07:41 Oxygen Flow Rate (L/min) 35 Oxygen Delivery Method Airvo Weight: 216 lb 4.375 oz Body Mass Index (BMI) 30.1 Intake & Output: Intake and Output for Last 24 Hours 10/03/21 10/04/21 10/05/21 03:59 03:59 03:59 Intake Total 700 / 700 1200 / 1200 Output Total 1800 / 1800 1300 / 1300 Balance -1100 / -1100 -100 / -100 Lab / Micro Data Result Diagrams: 10/04/21 06:35 10/04/21 06:35 Labs: Laboratory Results - last 24 hr 10/03/21 09:00: Differential Comment SCANNED, Atypical Lymphocytes 1+ 10/04/21 06:35: WBC 9.3, RBC 5.28, Hgb 15.7, Hct 46.4, MCV 87.9, MCH 29.7, MCHC 33.8, RDW Std Deviation 45.1 H, RDW Coeff of [place] 13.9, Plt Count 205, MPV 12.4 H , Immature Gran % (Auto) 0.800, Neut % (Auto) 78.5 H, Lymph % (Auto) 15.0 L, [place] % (Auto) 5.4, Eos % (Auto) 0.0, Baso % (Auto) 0.3, Absolute Neuts (auto) 7.3, Absolute Lymphs (auto) 1.40, Nucleated RBC % 0, Differential Comment SCANNED, Atypical Lymphocytes 1+ 10/04/21 06:35: Sodium 137, Potassium 4.3, Chloride 102, Carbon Dioxide 27.0, Anion Gap 8, BUN 44 H, Creatinine 0.83, Estim Creat Clear Calc 91.98, Est GFR (MDRD) Af Amer 119, Est GFR (MDRD) Non-Af 99, BUN/Creatinine Ratio 53.2 H, Glucose 116 H, Calcium 8.5, Total Bilirubin 0.40, AST 72 H, ALT 62 H, Alkaline Phosphatase 59, Total Protein 6.8, Albumin 2.1 L, Globulin 4.7 H, Albumin/Globulin Ratio 0.4 L Micro: Microbiology 09/30/21 10:15 Blood Culture (Wb) - Right Hand Blood Culture - Preliminary No growth in 48 hours. 09/30/21 10:15 Blood Culture (Wb) - Anticubital Right Blood Culture - Preliminary No growth in 48 hours. 09/30/21 10:00 Nasal Secretion SARS-CoV-2 Antigen (Rapid) - Final Physical Exam Const alert, oriented x3 and no apparent distress General Appearance: cooperative HEENT normocephalic and moist oral mucous membranes Eyes PERRL, EOMs intact bilaterally and conjunctivae normal Neck supple and no JVD Resp normal respiratory effort, no retractions and no use of accessory muscles Auscultation: crackles; Negative for rales, rhonchi or wheezes Cardio regular rate, regular rhythm, S1 normal heart sound, S2 normal heart sound and no murmurs GI soft to palpation, non-tender and non-distended; Negative for hepatosplenomegaly Extremity no clubbing, cyanosis or edema Skin no rashes or lesions noted Neuro no focal motor deficits and no sensory deficits noted Psych affect normal Appearance: appropriate Assessment & Plan Assessment/Plan (1) Acute hypoxemic respiratory failure due to COVID-19: PLAN: 1. Acute hypoxic respiratory failure secondary to COVID-19 pneumonia -He is out of precautions -CT of the chest was negative for PE -Continue with Decadron but does not meet requirements for remdesivir -Continue with a dose of Lasix secondary to crackles -Currently afebrile therefore we'll hold off on any empiric antibiotics -Continue with baricitinib, appreciate infectious disease recommendations DVT: Lovenox Charges/Coding Visit Charges Inpatient E&M: 75703 Subs Hosp L2
[2021-10-04] MEDS: 0.9% Saline Lock 10 ML Syringe IV (10:56)
[2021-10-04] MEDS: Furosemide 40 MG/4 ML Vial IV (10:56)
[2021-10-04] MEDS: Enoxaparin 40 MG/0.4 ML Syringe SC (10:56)
[2021-10-04] MEDS: dexAMETHasone 4 MG Tablet 6 MG PO (10:56)
[2021-10-05] VITALS (15 sets, daily range): BP systolic 109–126; BP diastolic 64–69; PULSE 58–92; RESP 18–22; TEMP 36.4–36.8; O2SAT 89–95
[2021-10-05 06:09] LABS: Absolute Lymphocyte Count 1.22 X10^3/uL (0.83-4.51); Absolute Neutrophil Count 7.4 X10^3/uL (2.0-7.7); Basophil# 0.05 X10^3/uL; Basophil% 0.6 % (0-1); Eosinophil# 0.01 X10^3/uL; Eosinophils% 0.1 % (0-5); Hematocrit 47.3 % (40-54); Hemoglobin 15.7 g/dL (13.0-16.5); Lymphocyte # 1.22 X10^3/ul (0.83-4.51); Lymphocyte % 13.6 % (19-41); Mean Corp Hgb Conc 33.2 g/dL (32-36); Mean Corpuscular Hgb 29.4 pg (27.0-32.0); Mean Corpuscular Volume 88.6 fL (80-94); Monocyte# 0.25 X10^3/uL; Monocyte% 2.8 % (0-10); NRBC Flagged by Analyzer 0 % (0-5); Neutrophil % 82.3 % (47-70); POSITIVE MORPHOLOGY YES; Platelet Count 217 K/mm3 (150-450); RBC Distribution Width CV 13.6 % (11.6-14.6); RBC Distribution Width SD 44.1 fl (35.1-43.9); Red Blood Count 5.34 M/mm3 (4.6-6.2)
[2021-10-05 06:48] LABS: ALB/GLOB Ratio 0.5 RATIO (0.9-2.4); AST(SGOT) 66 U/L (15-37); Alanine Aminotransfer ALT/SGPT 60 U/L (16-61); Albumin, Serum 2.2 g/dL (3.2-5.0); Alkaline Phosphatase 60 U/L (45-117); Anion Gap 4 (5-15); BUN 40 mg/dL (7-18); BUN/Creat Ratio 45.2 RATIO (10-20); Calcium,Total 8.5 mg/dL (8.5-10.1); Chloride 101 mmol/L (98-107); Creatinine, Serum 0.88 mg/dL (0.70-1.30); EST Glomerular Filtration Rate 91 mL/min (>60); Est Glom Filt Rate - Afr Amer 110 mL/min (>60); Estimated Creatinine Clearance 86.76 ml/min; Globulin 4.6 g/dL (2.2-4.2); Glucose 126 mg/dL (74-106); Potassium 3.9 mmol/L (3.5-5.1); Protein, Total 6.8 g/dL (6.4-8.2); Sodium Level 135 mmol/L (136-145)
[2021-10-05 06:57] LABS: Differential Indicated SCAN CRITERIA MET
[2021-10-05 07:56] LABS: Reactive Lymphocyte RARE
--- NOTE | 2021-10-05 08:02 | NURSING ---
clear papr mask worn for pt to be successful in lip reading/writing pencil and paper also at bedside.
[2021-10-05] MEDS: dexAMETHasone 4 MG Tablet 6 MG PO (08:04)
[2021-10-05] MEDS: Enoxaparin 40 MG/0.4 ML Syringe SC (08:05)
--- NOTE | 2021-10-05 10:36 | PCM.PN.HOSP ---
Subjective Subjective Remaining stable on his air Vo. He is not making much progress either way I think this is due to him not using the incentive spirometer and Pap. When I was in there we continue to go over the reason for using incentive spirometry and just with a little bit of coaching he was able to go for a volume of 100 to 500 over matter a few minutes. He was coughing during this episode which leads me to believe that because he had been coughing whenever he tried to use it he was not putting any significant effort into it Objective Data Objective Data Vital Signs: Vital Signs Temp Pulse Resp BP Pulse Ox 98.1 F 87 20 H 126/68 H 92 10/05/21 08:00 10/05/21 10:31 10/05/21 08:00 10/05/21 08:00 10/05/21 10:31 Oxygen Flow Rate (L/min) 60 Oxygen Delivery Method Airvo Weight: 216 lb 4.375 oz Body Mass Index (BMI) 30.1 Intake & Output: Intake and Output for Last 24 Hours 10/04/21 10/05/21 10/06/21 03:59 03:59 03:59 Intake Total 1200 / 1200 1350 / 1350 Output Total 1300 / 1300 2500 / 2500 400 / 400 Balance -100 / -100 -1150 / -1150 -400 / -400 Lab / Micro Data Result Diagrams: 10/05/21 05:18 10/05/21 05:18 Labs: Laboratory Results - last 24 hr 10/05/21 05:18: WBC 9.0, RBC 5.34, Hgb 15.7, Hct 47.3, MCV 88.6, MCH 29.4, MCHC 33.2, RDW Std Deviation 44.1 H, RDW Coeff of [place] 13.6, Plt Count 217, MPV 12.0, Immature Gran % (Auto) 0.600, Neut % (Auto) 82.3 H, Lymph % (Auto) 13.6 L, [place] % (Auto) 2.8, Eos % (Auto) 0.1, Baso % (Auto) 0.6, Absolute Neuts (auto) 7.4, Absolute Lymphs (auto) 1.22, Nucleated RBC % 0, Reactive Lymphocytes RARE 10/05/21 05:18: Sodium 135 L, Potassium 3.9, Chloride 101, Carbon Dioxide 30.0, Anion Gap 4 L, BUN 40 H, Creatinine 0.88, Estim Creat Clear Calc 86.76, Est GFR (MDRD) Af Amer 110, Est GFR (MDRD) Non-Af 91, BUN/Creatinine Ratio 45.2 H, Glucose 126 H, Calcium 8.5, Total Bilirubin 0.60, AST 66 H, ALT 60, Alkaline Phosphatase 60, Total Protein 6.8, Albumin 2.2 L, Globulin 4.6 H, Albumin/Globulin Ratio 0.5 L Micro: Microbiology 09/30/21 10:15 Blood Culture (Wb) - Right Hand Blood Culture - Preliminary No growth in 48 hours. 09/30/21 10:15 Blood Culture (Wb) - Anticubital Right Blood Culture - Preliminary No growth in 48 hours. 09/30/21 10:00 Nasal Secretion SARS-CoV-2 Antigen (Rapid) - Final Physical Exam Const alert, oriented x3 and no apparent distress General Appearance: cooperative HEENT normocephalic and moist oral mucous membranes General Ear: hearing grossly impaired bilateral Eyes PERRL, EOMs intact bilaterally and conjunctivae normal Neck supple and no JVD Resp normal respiratory effort, no retractions and no use of accessory muscles Auscultation: crackles; Negative for rales, rhonchi or wheezes Cardio regular rate, regular rhythm, S1 normal heart sound, S2 normal heart sound and no murmurs GI soft to palpation, non-tender and non-distended; Negative for hepatosplenomegaly Extremity no clubbing, cyanosis or edema Skin no rashes or lesions noted Neuro no focal motor deficits and no sensory deficits noted Psych affect normal Appearance: appropriate Assessment & Plan Assessment/Plan (1) Acute hypoxemic respiratory failure due to COVID-19: PLAN: 1. Acute hypoxic respiratory failure secondary to COVID-19 pneumonia -He is out of precautions -CT of the chest was negative for PE -Continue with Decadron but does not meet requirements for remdesivir -We will place him on twice daily Lasix and monitor his renal function closely -Continue to encourage incentive spirometry and Pep -Currently afebrile therefore we'll hold off on any empiric antibiotics -Continue with baricitinib, appreciate infectious disease recommendations DVT: Lovenox Charges/Coding Visit Charges Inpatient E&M: 56884 Subs Hosp L2
[2021-10-05] MEDS: Furosemide 40 MG/4 ML Vial IV ×2 (12:53→17:02)
[2021-10-05] MEDS: 0.9% Saline Lock 10 ML Syringe IV (12:53)
--- NOTE | 2021-10-05 14:40 | CON.PCM.ID_ITS ---
Assessment & Plan Assessment/Plan (1) COVID-19: PLAN: Unvaccinated. Sx since 09/11/21. Out of iso. On dex, baricitinib. Will order labs. Recommended vaccine after discharge. Recommend increasing lovenox to bid given severity of covid. Will follow, thank you (2) Acute hypoxemic respiratory failure due to COVID-19: HPI Consult Data Date of Consult: 10/05/21 HPI Narrative HPI Narrative: BELLO SANTIAGO, is a 66 M who is deaf, presented to ED 10/01 with sx since 09/11/21, c/o congestion, cough, fever, dyspnea. Unvaccinated. (+) covid at urgent care, given doxy, pred, albuterol, tessalon. Came here, admitted on dex, started baricitinib. Feeling better today. Full ROS performed and neg except as noted above. PFSH Medical History Deaf Smoker Medical History unable to obtain Home Medications NK 09/30/21 [History Last Taken Unknown] Allergy/AdvReac Type Severity Reaction Status Date / Time No Known Allergies Allergy Verified 09/30/21 10:01 Family History (Updated 09/30/21 @ 18:[address] River Quiroz MD) Other CVA (cerebral vascular accident) Cancer Surgical History unable to obtain Social History (Updated 09/30/21 @ 10:[address] Micah Rutledge, DO) Smoking Status: Current every day smoker tobacco type: cigarettes substance use type: does not use Physical Exam Const alert and no apparent distress General Appearance: cooperative HEENT normocephalic and head/scalp atraumatic Eyes PERRL and EOMs intact bilaterally Neck supple and No nodes Resp Auscultation: diminished lung sounds Cardio regular rate and regular rhythm GI normal to inspection, nondistended, normoactive bowel sounds Extremity no clubbing, cyanosis or edema Skin no rashes or lesions noted Neuro CN's II-XII intact bilaterally Lab / Micro Data Result Diagrams: 10/05/21 05:18 10/05/21 05:18 Labs: Laboratory Results - last 24 hr 10/05/21 05:18: WBC 9.0, RBC 5.34, Hgb 15.7, Hct 47.3, MCV 88.6, MCH 29.4, MCHC 33.2, RDW Std Deviation 44.1 H, RDW Coeff of [place] 13.6, Plt Count 217, MPV 12.0, Immature Gran % (Auto) 0.600, Neut % (Auto) 82.3 H, Lymph % (Auto) 13.6 L, [place] % (Auto) 2.8, Eos % (Auto) 0.1, Baso % (Auto) 0.6, Absolute Neuts (auto) 7.4, Absolute Lymphs (auto) 1.22, Nucleated RBC % 0, Reactive Lymphocytes RARE 10/05/21 05:18: Sodium 135 L, Potassium 3.9, Chloride 101, Carbon Dioxide 30.0, Anion Gap 4 L, BUN 40 H, Creatinine 0.88, Estim Creat Clear Calc 86.76, Est GFR (MDRD) Af Amer 110, Est GFR (MDRD) Non-Af 91, BUN/Creatinine Ratio 45.2 H, Gluc ose 126 H, Calcium 8.5, Total Bilirubin 0.60, AST 66 H, ALT 60, Alkaline Phosphatase 60, Total Protein 6.8, Albumin 2.2 L, Globulin 4.6 H, Albumin/Globulin Ratio 0.5 L Micro: Microbiology 09/30/21 10:15 Blood Culture (Wb) - Right Hand Blood Culture - Final No growth in 5 days. 09/30/21 10:15 Blood Culture (Wb) - Anticubital Right Blood Culture - Final No growth in 5 days.
--- NOTE | 2021-10-05 22:38 | CPS ---
pt sitting in chair -desating-increased fio2 to 93% and asked pt to breath in and out of nose
[2021-10-06] VITALS (21 sets, daily range): BP systolic 114–131; BP diastolic 55–74; PULSE 63–105; RESP 12–26; TEMP 36.6–36.9; O2SAT 90–96
--- NOTE | 2021-10-06 00:34 | CPS ---
pt placed on bipap for low sat maxxed out on airvo-viviana fair-wants to drink water
--- NOTE | 2021-10-06 02:54 | CPS ---
bipap decreased to 14/8 and 65% viviana well
[2021-10-06 07:04] LABS: Hematocrit 47.6 % (40-54); Hemoglobin 16.3 g/dL (13.0-16.5); Mean Corp Hgb Conc 34.2 g/dL (32-36); Mean Corpuscular Hgb 29.6 pg (27.0-32.0); Mean Corpuscular Volume 86.5 fL (80-94); Mean Platelet Vol. 12.1 fl (6.2-12.0); Platelet Count 228 K/mm3 (150-450); RBC Distribution Width CV 13.5 % (11.6-14.6); White Blood Count 11.9 K/mm3 (4.4-11.0)
[2021-10-06 07:24] LABS: BNP,B-Type NATRIURETIC PEPTIDE 22.7 pg/mL (0-100)
[2021-10-06 07:34] LABS: ALB/GLOB Ratio 0.4 RATIO (0.9-2.4); AST(SGOT) 81 U/L (15-37); Alanine Aminotransfer ALT/SGPT 60 U/L (16-61); Albumin, Serum 2.4 g/dL (3.2-5.0); Alkaline Phosphatase 67 U/L (45-117); Anion Gap 9 (5-15); BUN 33 mg/dL (7-18); BUN/Creat Ratio 37.8 RATIO (10-20); Calcium,Total 8.8 mg/dL (8.5-10.1); Chloride 97 mmol/L (98-107); Creatinine, Serum 0.87 mg/dL (0.70-1.30); EST Glomerular Filtration Rate 93 mL/min (>60); Est Glom Filt Rate - Afr Amer 112 mL/min (>60); Estimated Creatinine Clearance 87.75 ml/min; Globulin 5.4 g/dL (2.2-4.2); Glucose 117 mg/dL (74-106); Potassium 3.9 mmol/L (3.5-5.1); Protein, Total 7.8 g/dL (6.4-8.2); Sodium Level 133 mmol/L (136-145)
[2021-10-06 08:10] LABS: D-Dimer Quantitative (DVT/PE) 5.21 FEU/ug/m (0.27-0.49)
--- NOTE | 2021-10-06 08:11 | NURSING ---
Made primary RN aware of D-dimer 5.21.
[2021-10-06] MEDS: dexAMETHasone 4 MG Tablet 6 MG PO (10:01)
[2021-10-06] MEDS: 0.9% Saline Lock 10 ML Syringe IV ×2 (10:01→17:13)
[2021-10-06] MEDS: Furosemide 40 MG/4 ML Vial IV ×2 (10:01→17:13)
[2021-10-06] MEDS: Enoxaparin 40 MG/0.4 ML Syringe SC ×2 (10:02→21:25)
--- NOTE | 2021-10-06 11:00 | PN.HOSP_ITS ---
Subjective Subjective Was placed on BiPAP overnight. Today when I went and he had removed his BiPAP to eat and did not put back on his air Vo he desaturated very quickly down into the high 70s. Wants hepatocerebral back on he climbed back up in the low 90s. Objective Data Objective Data Vital Signs: Vital Signs Temp Pulse Resp BP Pulse Ox 98.0 F 70 25 H 123/72 H 92 10/06/21 08:46 10/06/21 09:28 10/06/21 09:28 10/06/21 08:46 10/06/21 09:28 Oxygen Flow Rate (L/min) 60 Oxygen Delivery Method Bi-pap Weight: 216 lb 4.375 oz Body Mass Index (BMI) 30.1 Intake & Output: Intake and Output for Last 24 Hours 10/05/21 10/06/21 10/07/21 03:59 03:59 03:59 Intake Total 1350 / 1350 440 / 440 300 / 300 Output Total 2500 / 2500 2150 / 2475 775 / 775 Balance -1150 / -1150 -1710 / -2035 -475 / -475 Lab / Micro Data Result Diagrams: 10/06/21 06:25 10/06/21 06:25 Labs: Laboratory Results - last 24 hr 10/06/21 06:25: D-Dimer Quant (PE/DVT) 5.21 H* 10/06/21 06:25: B-Natriuretic Peptide 22.7 10/06/21 06:25: Procalcitonin 0.20 H 10/06/21 06:25: WBC 11.9 H, RBC 5.50, Hgb 16.3, Hct 47.6, MCV 86.5, MCH 29.6, MCHC 34.2, RDW Std Deviation 43.0, RDW Coeff of [place] 13.5, Plt Count 228, MPV 12.1 H 10/06/21 06:25: Sodium 133 L, Potassium 3.9, Chloride 97 L, Carbon Dioxide 27.0, Anion Gap 9, BUN 33 H, Creatinine 0.87, Estim Creat Clear Calc 87.75, Est GFR (MDRD) Af Amer 112, Est GFR (MDRD) Non-Af 93, BUN/Creatinine Ratio 37.8 H, Glucose 117 H, Calcium 8.8, Total Bilirubin 0.60, AST 81 H, ALT 60, Alkaline Phosphatase 67, Total Protein 7.8, Albumin 2.4 L, Globulin 5.4 H, Albumin/Globulin Ratio 0.4 L Micro: Microbiology 09/30/21 10:15 Blood Culture (Wb) - Right Hand Blood Culture - Final No growth in 5 days. 09/30/21 10:15 Blood Culture (Wb) - Anticubital Right Blood Culture - Final No growth in 5 days. 09/30/21 10:00 Nasal Secretion SARS-CoV-2 Antigen (Rapid) - Final Physical Exam Const alert, oriented x3 and no apparent distress General Appearance: cooperative HEENT normocephalic and moist oral mucous membranes Eyes PERRL, EOMs intact bilaterally and conjunctivae normal Neck supple and no JVD Resp normal respiratory effort, no retractions and no use of accessory muscles Auscultation: crackles; Negative for rales, rhonchi or wheezes Cardio regular rate, regular rhythm, S1 normal heart sound, S2 normal heart sound and no murmurs GI soft to palpation, non-tender and non-distended; Negative for hepatosplenomegaly Extremity no clubbing, cyanosis or edema Skin no rashes or lesions noted Neuro no focal motor deficits and no sensory deficits noted Psych affect normal Appearance: appropriate Assessment & Plan Assessment/Plan (1) Acute hypoxemic respiratory failure due to COVID-19: PLAN: 1. Acute hypoxic respiratory failure secondary to COVID-19 pneumonia -He is out of precautions -CT of the chest was negative for PE however given his clinical worsening D- dimer was obtained which was elevated to 5.2 -Continue with Decadron but does not meet requirements for remdesivir -We will place him on twice daily Lasix and monitor his renal function closely -Continue to encourage incentive spirometry and Pep -Currently afebrile therefore we'll hold off on any empiric antibiotics -Continue with baricitinib, appreciate infectious disease recommendations -Given of the progression of his illness potentially requiring BiPAP, will consult pulmonology DVT: Lovenox Charges/Coding Visit Charges Inpatient E&M: 07924 Subs Hosp L2
--- NOTE | 2021-10-06 16:12 | CON.PCM.CC_ITS ---
Assessment & Plan Assessment/Plan (1) COVID-19: (2) Acute hypoxemic respiratory failure due to COVID-19: PLAN: RECOMMENDATIONS: 1. Add bronchodilators, vitamin C, zinc and mucolytic 2. Obtain echocardiogram to assess pulmonary artery pressures 3. Agree with aggressive diuresis as tolerated 4. Continue baricitinib (10/17/2021) and Decadron (10/10/2021) 5. Likely not necessary to increase to therapeutic dosing on Lovenox 6. Encourage incentive spirometer, Acapella and prone positioning as tolerated IMPRESSIONS: 1. Acute hypoxic respiratory failure secondary to COVID-19 Patient has persistent symptoms despite protracted course. Clinical suspicion is patient may have some other health issues that are not being recog nized secondary to a lack of a primary care physician. Patient does have an extensive smoking history. I did appreciate some wheezing on exam, so will initiate bronchodilators. Patient will also be placed on vitamin C, zinc and a mucolytic. Patient did have a significant elevation in hemoglobin on presentation. Patient may have an element of chronic hypoxia that has not been treated previously. Agree with baricitinib and Decadron. Patient does have an elevated D-dimer, but CTA was negative. Encourage incentive spirometer, Acapella and prone positioning. 2. Unvaccinated status/lack of PCP/advanced age/poor insight Complicates care, management, recovery and prognosis. Case management should initiate patient with a PCP on discharge. HPI Consult Data Date of Consult: 10/06/21 HPI Narrative HPI Narrative: BELLO SANTIAGO is a 66 M, with little reported past medical history, who presented to [facility] on 09/30/2021 via EMS from [facility] urgent care secondary to being hypoxic and febrile. Patient is deaf and reads lips at baseline. Patient believes that he first had symptoms on September 11 in urgent care placed him on doxycycline, albuterol, prednisone and Tessalon Perles. Patient failed to improve, so we went back on the day of presentation. Patient does not have a primary care physician. Patient reportedly is not vaccinated against COVID-19. In the ER, patient was febrile at 100.4 ?F. Patient was tachycardic at 115 bpm and requiring 4 L nasal cannula to maintain saturations. Blood pressure was slightly elevated and patient was tachypneic at 35 breaths/min. Laboratory data showed an elevated hemoglobin of 16.7, white blood cell count of 6 and a platelet count of 106. Chemistries were relatively unremarkable and lactate was 1.2. Chest x-ray showed bilateral infiltrates and a CT of the chest showed no PE, but diffuse groundglass opacities. EKG confirmed sinus tachycardia. The patient was admitted to the [facility] floor and initiated on Decadron. Patient has not received remdesivir secondary to delayed presentation. Patient was given a dose of Lasix secondary to crackles on exam. Patient was not treated with antibiotics initially. Over the course of the last 6 days, patient has continued to require high FiO2 requirements. Patient was placed on BiPAP overnight and desaturated in 70s when his Airvo was removed. Patient has been subsequently placed on baricitinib per ID. Patient is very vague about his respiratory status. Patient does have an extensive smoking history, but is never been formally diagnosed with heart or lung problems. Patient does not use any inhalers at baseline. Patient has not required any supplemental oxygen previously. Patient does admit that he does not tend to follow with a healthcare provider. Patient does have an incentive spirometer and Pep available, but does not use this routinely. Patient has not been on antibiotics during his hospitalization. Review of systems was difficult to obtain secondary to language and hearing barrier, but review of systems otherwise negative from a constitutional, HEENT, respiratory, cardiovascular, GI, genitourinary, musculoskeletal, skin, neurologic, psychiatric and hematologic system unless stated above. [facility] Medical History Deaf Smoker Medical History unable to obtain Home Medications NK 09/30/21 [History Last Taken Unknown] Allergy/AdvReac Type Severity Reaction Status Date / Time No Known Allergies Allergy Verified 09/30/21 10:01 Family History Other CVA (cerebral vascular accident) Cancer Surgical History no surgical history Social History Smoking Status: Current every day smoker tobacco type: cigarettes substance use type: does not use ROS ROS Narrative See HPI Physical Exam Const alert, oriented x3 and no apparent distress Constitutional Narrative: Deaf General Appearance: cooperative HEENT normocephalic and moist oral mucous membranes Eyes PERRL, EOMs intact bilaterally and conjunctivae normal Neck supple and no JVD Chest inspection of chest normal Chest: symmetrical chest wall rise; Negative for crepitus Resp normal respiratory effort, no retractions and no use of accessory muscles Effort and Inspection: Negative for uses accessory muscles Auscultation: rales and diminished lung sounds; Negative for rhonchi or wheezes Cardio regular rate, regular rhythm, S1 normal heart sound, S2 normal heart sound and no murmurs GI soft to palpation, non-tender and non-distended; Negative for hepatosplenomegaly Extremity no clubbing, cyanosis or edema Skin no rashes or lesions noted Neuro no focal motor deficits and no sensory deficits noted Psych affect normal Appearance: appropriate Lab / Micro Data Result Diagrams: 10/06/21 06:25 10/06/21 06:25 Labs: Laboratory Results - last 24 hr 10/06/21 06:25: D-Dimer Quant (PE/DVT) 5.21 H* 10/06/21 06:25: B-Natriuretic Peptide 22.7 10/06/21 06:25: Procalcitonin 0.20 H 10/06/21 06:25: WBC 11.9 H, RBC 5.50, Hgb 16.3, Hct 47.6, MCV 86.5, MCH 29.6, MCHC 34.2, RDW Std Deviation 43.0, RDW Coeff of [place] 13.5, Plt Count 228, MPV 12.1 H 10/06/21 06:25: Sodium 133 L, Potassium 3.9, Chloride 97 L, Carbon Dioxide 27.0, Anion Gap 9, BUN 33 H, Creatinine 0.87, Estim Creat Clear Calc 87.75, Est GFR (MDRD) Af Amer 112, Est GFR (MDRD) Non-Af 93, BUN/Creatinine Ratio 37.8 H, Gluco se 117 H, Calcium 8.8, Total Bilirubin 0.60, AST 81 H, ALT 60, Alkaline Phosphatase 67, Total Protein 7.8, Albumin 2.4 L, Globulin 5.4 H, Albumin/Globulin Ratio 0.4 L Micro: Microbiology 09/30/21 10:15 Blood Culture (Wb) - Right Hand Blood Culture - Final No growth in 5 days. 09/30/21 10:15 Blood Culture (Wb) - Anticubital Right Blood Culture - Final No growth in 5 days. Charges/Coding Visit Charges Inpatient E&M: 02931 Init Hosp L3
--- NOTE | 2021-10-06 16:20 | ECHOD_ITS ---
Reason For Study: PHTN Procedure This was a limited 2D transthoracic echocardiogram. The exam was abbreviated due to the COVID 19 protocol. Exam performed portable in patient room. Left Ventricle Normal LV size. Left ventricular systolic function is normal. The estimated ejection fraction is 55 %. No regional wall motion abnormalities noted. Right Ventricle Normal RV size. Normal systolic function. Atria Normal left atrium. Normal right atrium. Mitral Valve There is mild to moderate mitral annular calcification. Tricuspid Valve Normal tricuspid valve. Mild (1+) tricuspid valve insufficiency. Pulmonary artery systolic pressure is 34 mmHg. Pulmonic Valve The pulmonic valve is not well visualized. Great Vessels Normal aortic root. Pericardium/Pleural No pericardial effusion. MMode/2D Measurements & Calculations LVIDd: 4.1 cm IVSd: 1.2 cm LVIDs: 2.6 cm LVPWd: 1.1 cm RVDd: 4.2 cm FS: 37.2 % Doppler Measurements & Calculations MV V2 max: 158.6 cm/sec Ao V2 max: 207.1 cm/sec TR max nela: 272.1 cm/sec MV max P.1 mmHg Ao max P.1 mmHg TR max P.6 mmHg MV V2 mean: 86.7 cm/sec Ao V2 mean: 138.3 cm/sec MV mean P.5 mmHg Ao mean P.6 mmHg MV V2 VTI: 29.3 cm Ao V2 VTI: 33.6 cm ECHO/Echo Complete Interpretation Summary Normal LV size. Left ventricular systolic function is normal. The estimated ejection fraction is 55 %. There is mild to moderate mitral annular calcification. Pulmonary artery systolic pressure is 34 mmHg. Ordering Physician: Ronnie Post Performed By: Mallory Dillon, HAKEEMCS, RVT
[2021-10-06] MEDS: Ascorbic Acid 500 MG Tablet 1000 MG PO (17:12)
[2021-10-06] MEDS: Ipratropium/Albuterol Sulfate 3 ML AMPUL.NEB INHALATION (19:21)
[2021-10-06] MEDS: guaiFENesin 1,200 MG Tablet 1200 MG PO (21:25)
[2021-10-07] VITALS (14 sets, daily range): BP systolic 97–121; BP diastolic 57–67; PULSE 66–99; RESP 18–22; TEMP 36.3–37.3; O2SAT 91–96
[2021-10-07 06:50] LABS: Hematocrit 47.7 % (40-54); Hemoglobin 16.2 g/dL (13.0-16.5); Mean Corpuscular Hgb 29.5 pg (27.0-32.0); Mean Corpuscular Volume 86.7 fL (80-94); Mean Platelet Vol. 11.8 fl (6.2-12.0); Platelet Count 209 K/mm3 (150-450); RBC Distribution Width CV 13.3 % (11.6-14.6); White Blood Count 10.6 K/mm3 (4.4-11.0)
[2021-10-07 07:28] LABS: ALB/GLOB Ratio 0.4 RATIO (0.9-2.4); AST(SGOT) 66 U/L (15-37); Alanine Aminotransfer ALT/SGPT 56 U/L (16-61); Albumin, Serum 2.1 g/dL (3.2-5.0); Alkaline Phosphatase 65 U/L (45-117); Anion Gap 7 (5-15); BUN 34 mg/dL (7-18); BUN/Creat Ratio 40.3 RATIO (10-20); Calcium,Total 8.9 mg/dL (8.5-10.1); Chloride 97 mmol/L (98-107); Creatinine, Serum 0.84 mg/dL (0.70-1.30); EST Glomerular Filtration Rate 96 mL/min (>60); Est Glom Filt Rate - Afr Amer 116 mL/min (>60); Estimated Creatinine Clearance 90.89 ml/min; Globulin 5.6 g/dL (2.2-4.2); Glucose 112 mg/dL (74-106); Potassium 3.8 mmol/L (3.5-5.1); Protein, Total 7.7 g/dL (6.4-8.2); Sodium Level 133 mmol/L (136-145)
[2021-10-07] MEDS: Ascorbic Acid 500 MG Tablet 1000 MG PO ×2 (07:54→17:21)
--- NOTE | 2021-10-07 10:33 | PN.HOSP_ITS ---
Subjective Subjective Oxygen saturations on air Vo. No issues overnight. Continue to encourage incentive spirometry, he does have poor lung volumes on it. Objective Data Objective Data Vital Signs: Vital Signs Temp Pulse Resp BP Pulse Ox 97.8 F 66 20 H 121/64 H 91 10/07/21 07:42 10/07/21 08:04 10/07/21 08:04 10/07/21 07:42 10/07/21 08:04 Oxygen Flow Rate (L/min) 55 Oxygen Delivery Method Airvo Weight: 216 lb 4.375 oz Body Mass Index (BMI) 30.1 Intake & Output: Intake and Output for Last 24 Hours 10/06/21 10/07/21 10/08/21 03:59 03:59 03:59 Intake Total 440 / 440 700 / 700 600 / 600 Output Total 2150 / 2475 1525 / 1525 450 / 450 Balance -1710 / -2035 -825 / -825 150 / 150 Lab / Micro Data Result Diagrams: 10/07/21 06:15 10/07/21 06:15 Labs: Laboratory Results - last 24 hr 10/07/21 06:15: WBC 10.6, RBC 5.50, Hgb 16.2, Hct 47.7, MCV 86.7, MCH 29.5, MCHC 34.0, RDW Std Deviation 43.0, RDW Coeff of [place] 13.3, Plt Count 209, MPV 11.8 10/07/21 06:15: Sodium 133 L, Potassium 3.8, Chloride 97 L, Carbon Dioxide 29.0, Anion Gap 7, BUN 34 H, Creatinine 0.84, Estim Creat Clear Calc 90.89, Est GFR (MDRD) Af Amer 116, Est GFR (MDRD) Non-Af 96, BUN/Creatinine Ratio 40.3 H, Glucose 112 H, Calcium 8.9, Total Bilirubin 0.50, AST 66 H, ALT 56, Alkaline P hosphatase 65, Total Protein 7.7, Albumin 2.1 L, Globulin 5.6 H, Albumin/Globulin Ratio 0.4 L Micro: Microbiology 09/30/21 10:15 Blood Culture (Wb) - Right Hand Blood Culture - Final No growth in 5 days. 09/30/21 10:15 Blood Culture (Wb) - Anticubital Right Blood Culture - Final No growth in 5 days. 09/30/21 10:00 Nasal Secretion SARS-CoV-2 Antigen (Rapid) - Final Physical Exam Const alert, oriented x3 and no apparent distress General Appearance: cooperative HEENT normocephalic and moist oral mucous membranes Eyes PERRL, EOMs intact bilaterally and conjunctivae normal Neck supple and no JVD Resp normal respiratory effort, no retractions and no use of accessory muscles Auscultation: crackles; Negative for rales, rhonchi or wheezes Cardio regular rate, regular rhythm, S1 normal heart sound, S2 normal heart sound and no murmurs GI soft to palpation, non-tender and non-distended; Negative for hepatosplenomegaly Extremity no clubbing, cyanosis or edema Skin no rashes or lesions noted Neuro no focal motor deficits and no sensory deficits noted Psych affect normal Appearance: appropriate Assessment & Plan Assessment/Plan (1) Acute hypoxemic respiratory failure due to COVID-19: PLAN: 1. Acute hypoxic respiratory failure secondary to COVID-19 pneumonia -He is out of precautions -CT of the chest was negative for PE however given his clinical worsening D- dimer was obtained which was elevated to 5.2 -Continue with Decadron but does not meet requirements for remdesivir -We will place him on twice daily Lasix and monitor his renal function closely -Continue to encourage incentive spirometry and Pep -Currently afebrile therefore we'll hold off on any empiric antibiotics -Continue with baricitinib, appreciate infectious disease recommendations -Appreciate pulmonology's assistance, continue with bronchodilators. DVT: Lovenox Charges/Coding Visit Charges Inpatient E&M: 00853 Subs Hosp L2
[2021-10-07] MEDS: dexAMETHasone 4 MG Tablet 6 MG PO (10:39)
[2021-10-07] MEDS: Furosemide 40 MG/4 ML Vial IV ×2 (10:40→17:21)
[2021-10-07] MEDS: guaiFENesin 1,200 MG Tablet 1200 MG PO ×2 (10:40→21:13)
[2021-10-07] MEDS: Enoxaparin 40 MG/0.4 ML Syringe SC ×2 (10:40→21:14)
[2021-10-07] MEDS: Ipratropium/Albuterol Sulfate 3 ML AMPUL.NEB INHALATION ×2 (11:04→17:00)
[2021-10-07] MEDS: 0.9% Saline Lock 10 ML Syringe IV (21:14)
[2021-10-08] VITALS (12 sets, daily range): BP systolic 109–126; BP diastolic 63–70; PULSE 58–96; RESP 15–26; TEMP 36.4–37.1; O2SAT 86–96
[2021-10-08 05:52] LABS: Hematocrit 48.7 % (40-54); Hemoglobin 16.6 g/dL (13.0-16.5); Mean Corp Hgb Conc 34.1 g/dL (32-36); Mean Corpuscular Hgb 29.8 pg (27.0-32.0); Mean Corpuscular Volume 87.4 fL (80-94); Mean Platelet Vol. 11.9 fl (6.2-12.0); Platelet Count 238 K/mm3 (150-450); RBC Distribution Width CV 13.4 % (11.6-14.6); RBC Distribution Width SD 42.7 fl (35.1-43.9); Red Blood Count 5.57 M/mm3 (4.6-6.2); White Blood Count 10.2 K/mm3 (4.4-11.0)
[2021-10-08 06:43] LABS: ALB/GLOB Ratio 0.4 RATIO (0.9-2.4); AST(SGOT) 64 U/L (15-37); Alanine Aminotransfer ALT/SGPT 63 U/L (16-61); Albumin, Serum 2.2 g/dL (3.2-5.0); Alkaline Phosphatase 70 U/L (45-117); Anion Gap 3 (5-15); BUN 36 mg/dL (7-18); BUN/Creat Ratio 39.3 RATIO (10-20); Chloride 119 mmol/L (98-107); Creatinine, Serum 0.92 mg/dL (0.70-1.30); EST Glomerular Filtration Rate 88 mL/min (>60); Est Glom Filt Rate - Afr Amer 106 mL/min (>60); Estimated Creatinine Clearance 82.98 ml/min; Glucose 98 mg/dL (74-106); Potassium 3.7 mmol/L (3.5-5.1); Protein, Total 8.2 g/dL (6.4-8.2); Sodium Level 153 mmol/L (136-145)
[2021-10-08] MEDS: Ipratropium/Albuterol Sulfate 3 ML AMPUL.NEB INHALATION ×3 (07:11→19:49)
[2021-10-08] MEDS: dexAMETHasone 4 MG Tablet 6 MG PO (10:21)
[2021-10-08] MEDS: Ascorbic Acid 500 MG Tablet 1000 MG PO ×2 (10:22→14:44)
[2021-10-08] MEDS: guaiFENesin 1,200 MG Tablet 1200 MG PO ×2 (10:22→22:16)
[2021-10-08] MEDS: Furosemide 40 MG/4 ML Vial IV (10:22)
[2021-10-08] MEDS: Enoxaparin 40 MG/0.4 ML Syringe SC ×2 (10:23→22:15)
--- NOTE | 2021-10-08 13:27 | PN.CC_ITS ---
Assessment & Plan Assessment/Plan (1) COVID-19: (2) Acute hypoxemic respiratory failure due to COVID-19: PLAN: RECOMMENDATIONS: 1. Wean FiO2 to maintain oxygen saturations at or above 90%. 2. Hold scheduled IV Lasix. 3. Continue Decadron, baricitinib and Lovenox. 4. Awake prone positioning was encouraged. 5. Encourage incentive spirometer use and mobilize patient as tolerated. 6. Check strep and urine Legionella antigens along with MRSA screen. 7. Start empiric antimicrobials. IMPRESSIONS: 1. Acute hypoxic respiratory failure secondary to COVID-19 Patient presented to the hospital with a protracted clinical course. He has been placed on baricitinib, Decadron and Lovenox. The patient has also been diuresed quite extensively. Given his electrolyte abnormalities, will hold Lasix today. Given ongoing need for high supplemental oxygen requirement, will add empiric antimicrobials. Check strep and urine Legionella antigens along with MRSA screen. Continue to wean FiO2 as tolerated for saturations greater than 90%. Continue bronchodilator therapy as tolerated. 2. Unvaccinated status/lack of PCP/advanced age/poor insight Complicates care, management, recovery and prognosis. Case management should initiate patient with a PCP on discharge. This note was generated with [employer] dictation software. It may contain incorrect words, spelling, and punctuation that were not noted in checking the note before signing. Subjective Subjective The patient was seen and examined at the bedside this morning. Events from the last 24 hours have been reviewed. The patient is currently afebrile, hemodynamically stable and maintaining appropriate oxygen saturations on Airvo heated high flow oxygen with an FiO2 requirement of 60% and flow rate of 55 L/min. The patient is currently documented to be overall net -7.8 L for the hospitalization. The patient remains on Decadron, baricitinib and twice daily IV Lasix along with prophylactic Lovenox. Sodium is increased this morning to 153. Objective Data Objective Data The patient's most recent lab work, culture data and imaging studies have all been personally reviewed. Coronavirus PCR was positive on September 30. Vital Signs: Vital Signs Temp Pulse Resp BP Pulse Ox 98.8 F 83 15 126/70 H 86 10/08/21 10:04 10/08/21 10:04 10/08/21 10:04 10/08/21 10:04 10/08/21 10:04 Oxygen Flow Rate (L/min) 60 Oxygen Delivery Method Airvo Weight: 95.8 kg Body Mass Index (BMI) 30.1 Intake & Output: Intake and Output for Last 24 Hours 10/06/21 10/07/21 10/08/21 23:59 23:59 23:59 Intake Total 700 / 700 600 / 600 Output Total 1525 / 1525 1000 / 1000 900 / 900 Balance -825 / -825 -400 / -400 -900 / -900 Lab / Micro Data Attestation: I reviewed the patient's lab results. Result Diagrams: 10/09/21 05:15 10/09/21 05:15 Labs: Laboratory Results - last 24 hr 10/08/21 05:30: WBC 10.2, RBC 5.57, Hgb 16.6 H, Hct 48.7, MCV 87.4, MCH 29.8, MCHC 34.1, RDW Std Deviation 42.7, RDW Coeff of [place] 13.4, Plt Count 238, MPV 11.9 10/08/21 05:30: Sodium 153 H, Potassium 3.7, Chloride 119 H, Carbon Dioxide 31.0, Anion Gap 3 L, BUN 36 H, Creatinine 0.92, Estim Creat Clear Calc 82.98, Est GFR (MDRD) Af Amer 106, Est GFR (MDRD) Non-Af 88, BUN/Creatinine Ratio 39.3 H, Glucose 98, Calcium 9.0, Total Bilirubin 0.60, AST 64 H, ALT 63 H, Alkaline Phosphatase 70, Total Protein 8.2, Albumin 2.2 L, Globulin 6.0 H, Albumin/Globulin Ratio 0.4 L Micro: Microbiology 09/30/21 10:15 Blood Culture (Wb) - Right Hand Blood Culture - Final No growth in 5 days. 09/30/21 10:15 Blood Culture (Wb) - Anticubital Right Blood Culture - Final No growth in 5 days. 09/30/21 10:00 Nasal Secretion SARS-CoV-2 Antigen (Rapid) - Final Radiography Diagnostic Testing: Radiology Impression Echocardiogram 10/06/21 16:20 Interpretation Summary Normal LV size. Left ventricular systolic function is normal. The estimated ejection fraction is 55 %. There is mild to moderate mitral annular calcification. Pulmonary artery systolic pressure is 34 mmHg. Ordering Physician: Ronnie Post Performed By: Mallory Dillon RDCS, RVT Physical Exam Const alert and no apparent distress General Appearance: cooperative HEENT normocephalic and head/scalp atraumatic Eyes PERRL, EOMs intact bilaterally and conjunctivae normal Neck supple General: trachea midline Chest inspection of chest normal Resp normal respiratory effort Auscultation: diminished lung sounds Cardio regular rate and regular rhythm GI normal to inspection, nondistended, normoactive bowel sounds Extremity no clubbing, cyanosis or edema Skin no rashes or lesions noted Neuro CN's II-XII intact bilaterally and no focal motor deficits Psych cooperative and affect normal Charges/Coding Visit Charges Inpatient E&M: 93709 Subs Hosp L3
--- NOTE | 2021-10-08 14:46 | CASEMGMT ---
RN CM in to pt room to obtain patient choice for PCP. Pt did still have pamphlet given. Pt has chosen [facility]. TC to [place], spoke with Liseth, they are not accepting new patients. RN CM back into pt room, pt chooses [facility]. TC to [facility], spoke with Donna. Instructed to print new intake from website and fax over. Completed this at this time. Will await for acceptance by this practice.
[2021-10-08 18:24] LABS: M R Staph aureus DNA By PCR Negative (Negative); Probe Check PASS; Specimen Processing Control PASS
--- NOTE | 2021-10-08 19:13 | PCM.PN.HOSP ---
Subjective Subjective Patient was seen and examined today, he did not complain of any shortness of breath at rest of this examiner. He currently remains on Airvo. Patient remains on baricitinib and dexamethasone at this time. Objective Data Objective Data Vital Signs: Vital Signs Temp Pulse Resp BP Pulse Ox 97.9 F 80 16 110/68 94 10/08/21 16:00 10/08/21 16:00 10/08/21 16:00 10/08/21 16:00 10/08/21 16:00 Oxygen Flow Rate (L/min) 60 Oxygen Delivery Method Airvo Weight: 95.8 kg Body Mass Index (BMI) 30.1 Intake & Output: Intake and Output for Last 24 Hours 10/06/21 10/07/21 10/08/21 23:59 23:59 23:59 Intake Total 700 / 700 600 / 600 Output Total 1525 / 1525 1000 / 1000 900 / 900 Balance -825 / -825 -400 / -400 -900 / -900 Lab / Micro Data Result Diagrams: 10/08/21 05:30 10/08/21 05:30 Labs: Laboratory Results - last 24 hr 10/08/21 05:30: WBC 10.2, RBC 5.57, Hgb 16.6 H, Hct 48.7, MCV 87.4, MCH 29.8, MCHC 34.1, RDW Std Deviation 42.7, RDW Coeff of [place] 13.4, Plt Count 238, MPV 11.9 10/08/21 05:30: Sodium 153 H, Potassium 3.7, Chloride 119 H, Carbon Dioxide 31.0, Anion Gap 3 L, BUN 36 H, Creatinine 0.92, Estim Creat Clear Calc 82.98, Est GFR (MDRD) Af Amer 106, Est GFR (MDRD) Non-Af 88, BUN/Creatinine Ratio 39.3 H, Glucose 98, Calcium 9.0, Total Bilirubin 0.60, AST 64 H, ALT 63 H, Alkaline Phosphatase 70, Total Protein 8.2, Albumin 2.2 L, Globulin 6.0 H, Albumin/Globulin Ratio 0.4 L 10/08/21 16:16: MRSA (PCR) Negative Micro: Microbiology 09/30/21 10:15 Blood Culture (Wb) - Right Hand Blood Culture - Final No growth in 5 days. 09/30/21 10:15 Blood Culture (Wb) - Anticubital Right Blood Culture - Final No growth in 5 days. 09/30/21 10:00 Nasal Secretion SARS-CoV-2 Antigen (Rapid) - Final Physical Exam Const alert, oriented x3 and no apparent distress General Appearance: cooperative, well kempt and well developed Orientation / Consciousness: awake, oriented to person, oriented to place and oriented to time HEENT normocephalic, head/scalp atraumatic and moist oral mucous membranes Head and Scalp: normocephalic Eyes PERRL, EOMs intact bilaterally and conjunctivae normal Neck nuchal rigidity, supple, no JVD, thyroid normal and no carotid bruits General: trachea midline Resp normal respiratory effort, no retractions, no use of accessory muscles and clear to auscultation bilaterally Auscultation: Negative for rales, rhonchi or wheezes Cardio regular rate, regular rhythm, S1 normal heart sound, S2 normal heart sound, no murmurs, no rub and no gallops GI normal to inspection, nondistended, normoactive bowel sounds, soft to palpation, non-tender and non-distended Extremity no clubbing, cyanosis or edema Skin no rashes or lesions noted General Skin Exam: no breakdown Neuro oriented x3, CN's II-XII intact bilaterally, no focal motor deficits and no sensory deficits noted Sensorium / Orientation: awake and alert Speech: speech normal Psych thought process normal and affect normal Assessment & Plan Assessment/Plan (1) Acute hypoxemic respiratory failure due to COVID-19: PLAN: 1. COVID-19 pneumonia-patient remains on baricitinib and dexamethasone at this time, he is currently on Airvo, patient is being seen by pulmonary medicine, he was placed on IV antibiotics empirically today. #2 acute hypoxic respiratory failure secondary to [id number] medicine is participating in his care #3 deafness Charges/Coding Visit Charges Inpatient E&M: 17236 Subs Hosp L2
[2021-10-09] VITALS (10 sets, daily range): BP systolic 108–126; BP diastolic 62–75; PULSE 65–114; RESP 16–20; TEMP 36.4–37.3; O2SAT 90–97
[2021-10-09 05:38] LABS: Hemoglobin 16.2 g/dL (13.0-16.5); Mean Corp Hgb Conc 33.8 g/dL (32-36); Mean Corpuscular Hgb 29.1 pg (27.0-32.0); Mean Corpuscular Volume 86.3 fL (80-94); Mean Platelet Vol. 11.8 fl (6.2-12.0); Platelet Count 274 K/mm3 (150-450); RBC Distribution Width CV 13.3 % (11.6-14.6); RBC Distribution Width SD 41.6 fl (35.1-43.9); Red Blood Count 5.56 M/mm3 (4.6-6.2); White Blood Count 11.9 K/mm3 (4.4-11.0)
[2021-10-09 06:07] LABS: ALB/GLOB Ratio 0.4 RATIO (0.9-2.4); AST(SGOT) 61 U/L (15-37); Alanine Aminotransfer ALT/SGPT 54 U/L (16-61); Albumin, Serum 2.1 g/dL (3.2-5.0); Alkaline Phosphatase 70 U/L (45-117); Anion Gap 9 (5-15); BUN 35 mg/dL (7-18); BUN/Creat Ratio 32.7 RATIO (10-20); Calcium,Total 8.8 mg/dL (8.5-10.1); Chloride 95 mmol/L (98-107); Creatinine, Serum 1.07 mg/dL (0.70-1.30); EST Glomerular Filtration Rate 73 mL/min (>60); Est Glom Filt Rate - Afr Amer 89 mL/min (>60); Estimated Creatinine Clearance 71.35 ml/min; Globulin 5.5 g/dL (2.2-4.2); Glucose 90 mg/dL (74-106); Potassium 3.7 mmol/L (3.5-5.1); Protein, Total 7.6 g/dL (6.4-8.2); Sodium Level 133 mmol/L (136-145)
[2021-10-09] MEDS: Ipratropium/Albuterol Sulfate 3 ML AMPUL.NEB INHALATION ×3 (06:59→19:50)
--- NOTE | 2021-10-09 09:00 | CASEMGMT ---
Addendum entered by Camilla Noonan 10/09/21 12:44: RN CM in to pt room. Provided written notification to patient of acceptance by and where the office is located. Pt denies further questions. Original Note: Received confirmation that pt was accepted as a patient at [facility] by .
[2021-10-09] MEDS: dexAMETHasone 4 MG Tablet 6 MG PO (09:25)
[2021-10-09] MEDS: Ascorbic Acid 500 MG Tablet 1000 MG PO ×2 (09:25→17:12)
[2021-10-09] MEDS: Enoxaparin 40 MG/0.4 ML Syringe SC ×2 (09:25→20:45)
[2021-10-09] MEDS: guaiFENesin 1,200 MG Tablet 1200 MG PO ×2 (09:25→20:45)
--- NOTE | 2021-10-09 19:36 | PCM.PN.HOSP ---
Subjective Subjective Patient was seen and examined today, he remains on Airvo, he appears to be comfortable and in no distress at rest. Objective Data Objective Data Vital Signs: Vital Signs Temp Pulse Resp BP Pulse Ox 97.6 F L 75 18 110/65 94 10/09/21 15:30 10/09/21 15:30 10/09/21 15:30 10/09/21 15:30 10/09/21 15:30 Oxygen Flow Rate (L/min) 60 Oxygen Delivery Method Airvo Weight: 95.8 kg Body Mass Index (BMI) 30.1 Intake & Output: Intake and Output for Last 24 Hours 10/07/21 10/08/21 10/09/21 23:59 23:59 23:59 Intake Total 600 / 600 50 / 50 150 / 150 Output Total 1000 / 1000 1300 / 1300 600 / 600 Balance -400 / -400 -1250 / -1250 -450 / -450 Lab / Micro Data Result Diagrams: 10/10/21 08:04 10/10/21 08:04 Labs: Laboratory Results - last 24 hr 10/09/21 05:15: WBC 11.9 H, RBC 5.56, Hgb 16.2, Hct 48.0, MCV 86.3, MCH 29.1, MCHC 33.8, RDW Std Deviation 41.6, RDW Coeff of [place] 13.3, Plt Count 274, MPV 11.8 10/09/21 05:15: Sodium 133 L, Potassium 3.7, Chloride 95 L, Carbon Dioxide 29.0, Anion Gap 9, BUN 35 H, Creatinine 1.07, Estim Creat Clear Calc 71.35, Est GFR (MDRD) Af Amer 89, Est GFR (MDRD) Non-Af 73, BUN/Creatinine Ratio 32.7 H, Glucose 90, Calcium 8.8, Total Bilirubin 0.80, AST 61 H, ALT 54, Alkaline Phosphatase 70, Total Protein 7.6, Albumin 2.1 L, Globulin 5.5 H, Albumin/Globulin Ratio 0.4 L Micro: Microbiology 10/08/21 23:00 Interface Orders Streptococcus pneumoniae Antigen (M - Final 10/08/21 23:00 Interface Orders Legionella Antigen - Final 09/30/21 10:15 Blood Culture (Wb) - Right Hand Blood Culture - Final No growth in 5 days. 09/30/21 10:15 Blood Culture (Wb) - Anticubital Right Blood Culture - Final No growth in 5 days. 09/30/21 10:00 Nasal Secretion SARS-CoV-2 Antigen (Rapid) - Final Physical Exam Narrative Const alert, oriented x3 and no apparent distress General Appearance: cooperative, well kempt and well developed Orientation / Consciousness: awake, oriented to person, oriented to place and oriented to time HEENT normocephalic, head/scalp atraumatic and moist oral mucous membranes Head and Scalp: normocephalic Eyes PERRL, EOMs intact bilaterally and conjunctivae normal Neck nuchal rigidity, supple, no JVD, thyroid normal and no carotid bruits General: trachea midline Resp normal respiratory effort, no retractions, no use of accessory muscles and clear to auscultation bilaterally Auscultation: Negative for rales, rhonchi or wheezes Cardio regular rate, regular rhythm, S1 normal heart sound, S2 normal heart sound, no murmurs, no rub and no gallops GI normal to inspection, nondistended, normoactive bowel sounds, soft to palpation, non-tender and non-distended Extremity no clubbing, cyanosis or edema Skin no rashes or lesions noted General Skin Exam: no breakdown Neuro oriented x3, CN's II-XII intact bilaterally, no focal motor deficits and no sensory deficits noted Sensorium / Orientation: awake and alert Speech: speech normal Psych thought process normal and affect normal Assessment & Plan Assessment/Plan (1) COVID-19: (2) Acute hypoxemic respiratory failure due to COVID-19: PLAN: 1. COVID-19 pneumonia-patient remains on baricitinib at this time, he is currently on BiPAP, patient is being seen by pulmonary medicine, he continues on empiric antibiotics #2 acute hypoxic respiratory failure secondary to [id number] medicine is participating in his care #3 deafness Charges/Coding Visit Charges Inpatient E&M: 85342 Subs Hosp L2
[2021-10-10] VITALS (20 sets, daily range): BP systolic 108–134; BP diastolic 65–75; PULSE 68–112; RESP 12–24; TEMP 36.3–37; O2SAT 90–97
[2021-10-10] MEDS: Oxymetazoline 0.05% 1 SPRAY SPRAY.BTL NASAL (04:10)
--- NOTE | 2021-10-10 06:04 | PN.CC_ITS ---
Assessment & Plan Assessment/Plan (1) COVID-19: (2) Acute hypoxemic respiratory failure due to COVID-19: PLAN: RECOMMENDATIONS: 1. Wean FiO2 to maintain oxygen saturations at or above 90%. 2. Continue Decadron, baricitinib and Lovenox. 3. Awake prone positioning was encouraged. 4. Encourage incentive spirometer use and mobilize patient as tolerated. 5. Continue empiric antimicrobials. 6. If unable to maintain saturations on Airvo, initiate BiPAP therapy. IMPRESSIONS: 1. Acute hypoxic respiratory failure secondary to COVID-19 The patient presented to the hospital with a protracted clinical course. He has been placed on baricitinib, Decadron and Lovenox. The patient was initially diuresed, with Lasix subsequently discontinued, as the patient is overall net negative for the hospitalization. Given increasing oxygen requirements, he was also placed empirically on antimicrobials. CTA chest showed no evidence for PE. Continue to wean FiO2 as tolerated to maintain saturations at or above 90%. If the patient is not able to maintain appropriate saturations on heated high flow oxygen, he can be transition to BiPAP therapy. Continue scheduled bronchodilators as ordered. 2. Unvaccinated status/lack of PCP/advanced age/poor insight Complicates care, management, recovery and prognosis. Case management should initiate patient with a PCP on discharge. This note was generated with [employer] dictation software. It may contain incorrect words, spelling, and punctuation that were not noted in checking the note before signing. Subjective Subjective The patient was seen and examined at the bedside this morning. Events from the last 24 hours have been reviewed. The patient is currently afebrile, hemodynamically stable and maintaining appropriate oxygen saturations on Airvo heated high flow with an FiO2 requirement of 92% and flow rate of 60 L/min. The patient is currently documented to be overall net -9 L for the hospitalization. The patient remains on antimicrobials, Decadron, baricitinib, prophylactic Lo venox and scheduled bronchodilators. Objective Data Objective Data The patient's most recent lab work, culture data and imaging studies have all been personally reviewed. Coronavirus PCR was positive on September 30. MRSA s creen was negative. Strep and urine Legionella antigens were negative. Vital Signs: Vital Signs Temp Pulse Resp BP Pulse Ox 97.9 F 84 20 H 134/75 H 91 10/10/21 04:06 10/10/21 04:36 10/10/21 04:06 10/10/21 04:06 10/10/21 04:36 Oxygen Flow Rate (L/min) 60 Oxygen Delivery Method Airvo Weight: 95.8 kg Body Mass Index (BMI) 30.1 Intake & Output: Intake and Output for Last 24 Hours 10/08/21 10/09/21 10/10/21 23:59 23:59 23:59 Intake Total 50 / 50 150 / 150 50 / 50 Output Total 1300 / 1300 800 / 800 375 / 375 Balance -1250 / -1250 -650 / -650 -325 / -325 Lab / Micro Data Attestation: I reviewed the patient's lab results. Result Diagrams: 10/09/21 05:15 10/09/21 05:15 Labs: Laboratory Results - last 24 hr 10/09/21 05:15: Sodium 133 L, Potassium 3.7, Chloride 95 L, Carbon Dioxide 29.0, Anion Gap 9, BUN 35 H, Creatinine 1.07, Estim Creat Clear Calc 71.35, Est GFR (MDRD) Af Amer 89, Est GFR (MDRD) Non-Af 73, BUN/Creatinine Ratio 32.7 H, Glucose 90, Calcium 8.8, Total Bilirubin 0.80, AST 61 H, ALT 54, Alkaline Phosphatase 70, Total Protein 7.6, Albumin 2.1 L, Globulin 5.5 H, Albumin/Globulin Ratio 0.4 L Micro: Microbiology 10/08/21 23:00 Interface Orders Streptococcus pneumoniae Antigen (M - Final 10/08/21 23:00 Interface Orders Legionella Antigen - Final 09/30/21 10:15 Blood Culture (Wb) - Right Hand Blood Culture - Final No growth in 5 days. 09/30/21 10:15 Blood Culture (Wb) - Anticubital Right Blood Culture - Final No growth in 5 days. 09/30/21 10:00 Nasal Secretion SARS-CoV-2 Antigen (Rapid) - Final Physical Exam Const alert and no apparent distress Constitutional Narrative: Sitting upright in bed with heated high flow cannula in place. General Appearance: cooperative HEENT normocephalic and head/scalp atraumatic Eyes PERRL, EOMs intact bilaterally and conjunctivae normal Neck supple General: trachea midline Chest inspection of chest normal Resp Effort and Inspection: tachypneic Auscultation: diminished lung sounds Cardio regular rate and regular rhythm GI normal to inspection, nondistended, normoactive bowel sounds Extremity no clubbing, cyanosis or edema Skin no rashes or lesions noted Neuro CN's II-XII intact bilaterally and no focal motor deficits Psych cooperative and affect normal Charges/Coding Visit Charges Inpatient E&M: 01417 Subs Hosp L3
[2021-10-10] MEDS: Ipratropium/Albuterol Sulfate 3 ML AMPUL.NEB INHALATION ×3 (07:03→20:36)
[2021-10-10] MEDS: Ascorbic Acid 500 MG Tablet 1000 MG PO ×2 (07:57→17:13)
[2021-10-10 09:07] LABS: Absolute Lymphocyte Count 0.41 X10^3/uL (0.83-4.51); Absolute Neutrophil Count 14.8 X10^3/uL (2.0-7.7); Basophil# 0.02 X10^3/uL; Basophil% 0.1 % (0-1); Eosinophil# 0.21 X10^3/uL; Eosinophils% 1.3 % (0-5); Hematocrit 46.7 % (40-54); Lymphocyte # 0.41 X10^3/ul (0.83-4.51); Lymphocyte % 2.6 % (19-41); Mean Corp Hgb Conc 34.3 g/dL (32-36); Mean Corpuscular Hgb 29.5 pg (27.0-32.0); Mean Corpuscular Volume 86.2 fL (80-94); Mean Platelet Vol. 11.7 fl (6.2-12.0); Monocyte# 0.19 X10^3/uL; Monocyte% 1.2 % (0-10); NRBC Flagged by Analyzer 0 % (0-5); Neutrophil # 14.83 X10^3/uL (2.7-7.7); Neutrophil % 94.2 % (47-70); POSITIVE DIFFERENTIAL YES; Platelet Count 306 K/mm3 (150-450); RBC Distribution Width CV 13.5 % (11.6-14.6); RBC Distribution Width SD 42.2 fl (35.1-43.9); Red Blood Count 5.42 M/mm3 (4.6-6.2); White Blood Count 15.8 K/mm3 (4.4-11.0)
[2021-10-10 09:08] LABS: Differential Indicated SCAN CRITERIA MET
[2021-10-10 09:22] LABS: Anion Gap 12 (5-15); BUN 28 mg/dL (7-18); BUN/Creat Ratio 30.4 RATIO (10-20); Calcium,Total 8.7 mg/dL (8.5-10.1); Chloride 96 mmol/L (98-107); Creatinine, Serum 0.92 mg/dL (0.70-1.30); EST Glomerular Filtration Rate 87 mL/min (>60); Est Glom Filt Rate - Afr Amer 105 mL/min (>60); Estimated Creatinine Clearance 82.98 ml/min; Glucose 103 mg/dL (74-106); Potassium 3.2 mmol/L (3.5-5.1); Sodium Level 134 mmol/L (136-145)
[2021-10-10] MEDS: dexAMETHasone 4 MG Tablet 6 MG PO (10:59)
[2021-10-10] MEDS: Enoxaparin 40 MG/0.4 ML Syringe SC ×2 (10:59→21:50)
[2021-10-10] MEDS: guaiFENesin 1,200 MG Tablet 1200 MG PO ×2 (10:59→21:51)
--- NOTE | 2021-10-10 15:53 | NURSING ---
Pt stats remains in the upper 80's and lower 80's with airvo. Nurse communicated with him on need ot try bipap he refused. Telephone call made to his and daughter. Spouse into see him and pt is in agreement to try the bipap for short intervals . He will be on airvo when he is eating meals. He agrees to this while is present. He is also given the suggestion that bipap might be more comfortable when he is up in the chair. Pt has been co-operative with plan of care stats are 93% on bipap heart rate 78.
[2021-10-11] VITALS (12 sets, daily range): BP systolic 102–124; BP diastolic 64–77; PULSE 72–89; RESP 12–25; TEMP 36.5–37.2; O2SAT 91–97
--- NOTE | 2021-10-11 06:00 | PCM.PN.INT ---
Assessment & Plan Assessment/Plan (1) COVID-19: (2) Acute hypoxemic respiratory failure due to COVID-19: PLAN: RECOMMENDATIONS: 1. Wean FiO2 to maintain oxygen saturations at or above 90%. 2. Continue baricitinib and Lovenox. 3. Awake prone positioning was encouraged. 4. Encourage incentive spirometer use and mobilize patient as tolerated. 5. Continue empiric antimicrobials. 6. If unable to maintain saturations on Airvo, initiate BiPAP therapy. IMPRESSIONS: 1. Acute hypoxic respiratory failure secondary to COVID-19 The patient presented to the hospital with a protracted clinical course. The patient has completed a 10-day course of Decadron. He remains on baricitinib and Lovenox, along with empiric antimicrobials. The patient was initially diuresed, with Lasix subsequently discontinued, as the patient is overall net negative for the hospitalization. CTA chest showed no evidence for PE. Continue to wean FiO2 as tolerated to maintain saturations at or above 90%. If the patient is not able to maintain appropriate saturations on heated high flow oxygen, he can be transition to BiPAP therapy. Continue scheduled bronchodilators as ordered. 2. Unvaccinated status/lack of PCP/advanced age/poor insight Complicates care, management, recovery and prognosis. Case management should initiate patient with a PCP on discharge. This note was generated with [employer] dictation software. It may contain incorrect words, spelling, and punctuation that were not noted in checking the note before signing. Subjective Subjective The patient was seen and examined at the bedside this morning. Events from the last 24 hours have been reviewed. The patient is currently afebrile, hemodynamically stable and maintaining appropriate oxygen saturations on Airvo heated high flow with an FiO2 requirement of 95% and flow rate of 60 L/min. The patient is currently documented to be overall net -8.8 L for the hospitalization. The patient remains on antimicrobials, baricitinib, prophylactic Lovenox and scheduled bronchodilators. Objective Data Objective Data The patient's most recent lab work, culture data and imaging studies have all been personally reviewed. Coronavirus PCR was positive on September 30. MRSA screen was negative. Strep and urine Legionella antigens were negative. Vital Signs: Vital Signs Temp Pulse Resp BP Pulse Ox 97.8 F 84 20 H 102/70 97 10/11/21 05:52 10/11/21 05:52 10/11/21 05:52 10/11/21 05:52 10/11/21 05:52 Oxygen Flow Rate (L/min) 60 Oxygen Delivery Method Airvo Weight: 91.7 kg Body Mass Index (BMI) 30.1 Intake & Output: Intake and Output for Last 24 Hours 10/09/21 10/10/21 10/11/21 23:59 23:59 23:59 Intake Total 150 / 150 1000 / 1000 50 / 50 Output Total 800 / 800 1055 / 1055 Balance -650 / -650 -55 / -55 50 / 50 Lab / Micro Data Attestation: I reviewed the patient's lab results. Result Diagrams: 10/10/21 08:04 10/10/21 08:04 Labs: Laboratory Results - last 24 hr 10/10/21 08:04: WBC 15.8 H, RBC 5.42, Hgb 16.0, Hct 46.7, MCV 86.2, MCH 29.5, MCHC 34.3, RDW Std Deviation 42.2, RDW Coeff of [place] 13.5, Plt Count 306, MPV 11.7, Immature Gran % (Auto) 0.600, Neut % (Auto) 94.2 H, Lymph % (Auto) 2.6 L, [place] % (Auto) 1.2, Eos % (Auto) 1.3, Baso % (Auto) 0.1, Absolute Neuts (auto) 14.8 H, Absolute Lymphs (auto) 0.41 L, Nucleated RBC % 0 10/10/21 08:04: Sodium 134 L, Potassium 3.2 L, Chloride 96 L, Carbon Dioxide 26.0, Anion Gap 12, BUN 28 H, Creatinine 0.92, Estim Creat Clear Calc 82.98, Est GFR (MDRD) Af Amer 105, Est GFR (MDRD) Non-Af 87, BUN/Creatinine Ratio 30.4 H, Glucose 103, Calcium 8.7 Micro: Microbiology 10/08/21 23:00 Interface Orders Streptococcus pneumoniae Antigen (M - Final 10/08/21 23:00 Interface Orders Legionella Antigen - Final 09/30/21 10:15 Blood Culture (Wb) - Right Hand Blood Culture - Final No growth in 5 days. 09/30/21 10:15 Blood Culture (Wb) - Anticubital Right Blood Culture - Final No growth in 5 days. 09/30/21 10:00 Nasal Secretion SARS-CoV-2 Antigen (Rapid) - Final Physical Exam Const alert and no apparent distress Constitutional Narrative: Heated high flow cannula in place. General Appearance: cooperative HEENT normocephalic and head/scalp atraumatic Eyes PERRL, EOMs intact bilaterally and conjunctivae normal Neck supple General: trachea midline Chest inspection of chest normal Resp Effort and Inspection: tachypneic Auscultation: diminished lung sounds Cardio regular rate and regular rhythm GI normal to inspection, nondistended, normoactive bowel sounds Extremity no clubbing, cyanosis or edema Skin no rashes or lesions noted Neuro CN's II-XII intact bilaterally and no focal motor deficits Psych cooperative and affect normal Charges/Coding Visit Charges Inpatient E&M: 04724 Subs Hosp L2
[2021-10-11] MEDS: Ipratropium/Albuterol Sulfate 3 ML AMPUL.NEB INHALATION ×3 (06:48→19:42)
[2021-10-11] MEDS: Ascorbic Acid 500 MG Tablet 1000 MG PO ×2 (08:28→18:43)
[2021-10-11] MEDS: guaiFENesin 1,200 MG Tablet 1200 MG PO ×2 (10:22→21:04)
[2021-10-11] MEDS: Enoxaparin 40 MG/0.4 ML Syringe SC ×2 (10:22→21:04)
[2021-10-11] MEDS: Acetaminophen 325 MG Tablet 650 MG PO (14:36)
--- NOTE | 2021-10-11 19:13 | PN.HOSP_ITS ---
Subjective Subjective Patient was seen and examined today, he is alert and does not appear to be in any respiratory distress at rest, he is sitting in the chair. I try to talk to him about whether he would want a ventilator if he needed it, he wrote that his daughter was coming in at 1 PM today. I was not able to talk with her due to ti me constraints today. Patient remains a full code at this time. Objective Data Objective Data Vital Signs: Vital Signs Temp Pulse Resp BP Pulse Ox 98.2 F 87 18 107/77 95 10/11/21 16:30 10/11/21 16:30 10/11/21 16:30 10/11/21 16:30 10/11/21 16:30 Oxygen Flow Rate (L/min) 60 Oxygen Delivery Method Airvo Weight: 91.7 kg Body Mass Index (BMI) 30.1 Intake & Output: Intake and Output for Last 24 Hours 10/09/21 10/10/21 10/11/21 23:59 23:59 23:59 Intake Total 150 / 150 1000 / 1000 950 / 950 Output Total 800 / 800 1055 / 1055 750 / 750 Balance -650 / -650 -55 / -55 200 / 200 Lab / Micro Data Result Diagrams: 10/10/21 08:04 10/10/21 08:04 Micro: Microbiology 10/08/21 23:00 Interface Orders Streptococcus pneumoniae Antigen (M - Final 10/08/21 23:00 Interface Orders Legionella Antigen - Final 09/30/21 10:15 Blood Culture (Wb) - Right Hand Blood Culture - Final No growth in 5 days. 09/30/21 10:15 Blood Culture (Wb) - Anticubital Right Blood Culture - Final No growth in 5 days. 09/30/21 10:00 Nasal Secretion SARS-CoV-2 Antigen (Rapid) - Final Physical Exam Narrative Const alert, oriented x3 and no apparent distress General Appearance: cooperative, well kempt and well developed Orientation / Consciousness: awake, patient is deaf HEENT normocephalic, head/scalp atraumatic and moist oral mucous membranes Head and Scalp: normocephalic Eyes PERRL, EOMs intact bilaterally and conjunctivae normal Neck nuchal rigidity, supple, no JVD, thyroid normal General: trachea midline Resp normal respiratory effort, no retractions, no use of accessory muscles and clear to auscultation bilaterally Auscultation: Negative for rales, rhonchi or wheezes Cardio regular rate, regular rhythm, S1 normal heart sound, S2 normal heart sound, no murmurs, no rub and no gallops GI normal to inspection, nondistended, normoactive bowel sounds, soft to palpation, non-tender and non-distended Extremity no clubbing, cyanosis or edema Skin no rashes or lesions noted General Skin Exam: no breakdown Neuro oriented x3, CN's II-XII intact bilaterally, no focal motor deficits and no sensory deficits noted Sensorium / Orientation: awake and alert Speech: speech normal Psych thought process normal and affect normal Assessment & Plan Assessment/Plan (1) COVID-19: (2) Acute hypoxemic respiratory failure due to COVID-19: PLAN: 1. COVID-19 pneumonia-patient remains on baricitinib at this time, he is currently on Airvo, patient is being seen by pulmonary medicine, he continues on empiric antibiotics. Patient has finished Decadron. #2 acute hypoxic respiratory failure secondary to [id number] medicine is participating in his care #3 deafness Charges/Coding Visit Charges Inpatient E&M: 49656 Subs Hosp L2
[2021-10-12] VITALS (12 sets, daily range): BP systolic 101–120; BP diastolic 56–82; PULSE 69–108; RESP 18–22; TEMP 36.5–37; O2SAT 91–95
[2021-10-12 06:34] LABS: Absolute Lymphocyte Count 0.52 X10^3/uL (0.83-4.51); Absolute Neutrophil Count 14.5 X10^3/uL (2.0-7.7); Basophil# 0.01 X10^3/uL; Basophil% 0.1 % (0-1); Eosinophil# 0.21 X10^3/uL; Eosinophils% 1.4 % (0-5); Hematocrit 44.9 % (40-54); Hemoglobin 15.2 g/dL (13.0-16.5); Lymphocyte # 0.52 X10^3/ul (0.83-4.51); Lymphocyte % 3.4 % (19-41); Mean Corp Hgb Conc 33.9 g/dL (32-36); Mean Corpuscular Hgb 29.6 pg (27.0-32.0); Mean Corpuscular Volume 87.5 fL (80-94); Mean Platelet Vol. 11.4 fl (6.2-12.0); Monocyte# 0.14 X10^3/uL; Monocyte% 0.9 % (0-10); NRBC Flagged by Analyzer 0 % (0-5); Neutrophil % 93.6 % (47-70); POSITIVE DIFFERENTIAL YES; POSITIVE MORPHOLOGY YES; Platelet Count 322 K/mm3 (150-450); RBC Distribution Width CV 13.4 % (11.6-14.6); Red Blood Count 5.13 M/mm3 (4.6-6.2); White Blood Count 15.5 K/mm3 (4.4-11.0)
[2021-10-12 06:43] LABS: Differential Indicated SCAN CRITERIA MET
[2021-10-12] MEDS: Ipratropium/Albuterol Sulfate 3 ML AMPUL.NEB INHALATION ×3 (06:55→19:59)
[2021-10-12 07:00] LABS: ALB/GLOB Ratio 0.3 RATIO (0.9-2.4); AST(SGOT) 36 U/L (15-37); Alanine Aminotransfer ALT/SGPT 39 U/L (16-61); Albumin, Serum 1.7 g/dL (3.2-5.0); Alkaline Phosphatase 82 U/L (45-117); Anion Gap 6 (5-15); BUN 24 mg/dL (7-18); Calcium,Total 8.6 mg/dL (8.5-10.1); Chloride 100 mmol/L (98-107); EST Glomerular Filtration Rate 103 mL/min (>60); Est Glom Filt Rate - Afr Amer 124 mL/min (>60); Estimated Creatinine Clearance 95.43 ml/min; Globulin 5.4 g/dL (2.2-4.2); Glucose 98 mg/dL (74-106); Potassium 3.5 mmol/L (3.5-5.1); Protein, Total 7.1 g/dL (6.4-8.2); Sodium Level 134 mmol/L (136-145)
[2021-10-12 07:27] LABS: Platelet Estimate ADEQUATE (ADEQ); Platelet Morphology LARGE
[2021-10-12] MEDS: Ascorbic Acid 500 MG Tablet 1000 MG PO ×2 (07:28→14:57)
[2021-10-12] MEDS: Enoxaparin 40 MG/0.4 ML Syringe SC ×2 (09:50→21:54)
[2021-10-12] MEDS: guaiFENesin 1,200 MG Tablet 1200 MG PO ×2 (09:51→21:54)
--- NOTE | 2021-10-12 09:57 | PCM.PN.INT ---
Assessment & Plan Assessment/Plan (1) COVID-19: (2) Acute hypoxemic respiratory failure due to COVID-19: PLAN: RECOMMENDATIONS: 1. Wean FiO2 to maintain oxygen saturations at or above 90%. 2. Continue baricitinib (10/17/2021) and Lovenox. Completed Decadron 3. Awake prone positioning was encouraged. 4. Encourage incentive spirometer use and mobilize patient as tolerated. 5. Continue empiric antimicrobials to complete a 7-day course (10/15/2021). 6. If unable to maintain saturations on Airvo, initiate BiPAP therapy. IMPRESSIONS: 1. Acute hypoxic respiratory failure secondary to COVID-19 The patient presented to the hospital with a protracted clinical course. The patient has completed a 10-day course of Decadron. He remains on baricitinib and Lovenox, along with empiric antimicrobials. We will continue to diurese intermittently as labs allow. Patient does not appear to be significantly volume overloaded clinically. CTA chest showed no evidence for PE. Continue to wean FiO2 as tolerated to maintain saturations at or above 90%. If the patient is not able to maintain appropriate saturations on heated high flow oxygen, he can be transition to BiPAP therapy. Continue scheduled bronchodilators as ordered. Given protracted course, could consider LTAC evaluation, but defer to case management 2. Unvaccinated status/lack of PCP/advanced age/poor insight Complicates care, management, recovery and prognosis. Case management should initiate patient with a PCP on discharge. This note was generated with [employer] dictation software. It may contain incorrect words, spelling, and punctuation that were not noted in checking the note before signing. Subjective Subjective The patient did well overnight. No acute issues were reported. Patient subjectively feels unchanged compared to previous. Patient is still requiring significant FiO2 by Airvo, but is not reporting any epistaxis or hemoptysis. Patient was started on empiric antibiotics. Objective Data Objective Data Vital Signs: Vital Signs Temp Pulse Resp BP Pulse Ox 36.5 C L 108 H 22 H 118/73 91 10/12/21 07:31 10/12/21 09:04 10/12/21 09:04 10/12/21 07:31 10/12/21 09:04 Oxygen Flow Rate (L/min) 60 Oxygen Delivery Method Airvo Weight: 91.7 kg Body Mass Index (BMI) 30.1 Intake & Output: Intake and Output for Last 24 Hours 10/10/21 10/11/21 10/12/21 23:59 23:59 23:59 Intake Total 1000 / 1000 950 / 950 50 / 50 Output Total 1055 / 1055 1150 / 1150 400 / 400 Balance -55 / -55 -200 / -200 -350 / -350 Lab / Micro Data Result Diagrams: 10/12/21 06:00 10/12/21 06:00 Labs: Laboratory Results - last 24 hr 10/12/21 06:00: WBC 15.5 H, RBC 5.13, Hgb 15.2, Hct 44.9, MCV 87.5, MCH 29.6, MCHC 33.9, RDW Std Deviation 43.0, RDW Coeff of [place] 13.4, Plt Count 322, MPV 11.4, Immature Gran % (Auto) 0.600, Neut % (Auto) 93.6 H, Lymph % (Auto) 3.4 L, [place] % (Auto) 0.9, Eos % (Auto) 1.4, Baso % (Auto) 0.1, Absolute Neuts (auto) 14.5 H, Absolute Lymphs (auto) 0.52 L, Nucleated RBC % 0, Platelet Estimate ADEQUATE, Plt Morphology Comment LARGE 10/12/21 06:00: Sodium 134 L, Potassium 3.5, Chloride 100, Carbon Dioxide 28.0, Anion Gap 6, BUN 24 H, Creatinine 0.80, Estim Creat Clear Calc 95.43, Est GFR (MDRD) Af Amer 124, Est GFR (MDRD) Non-Af 103, BUN/Creatinine Ratio 30.0 H, Glucose 98, Calcium 8.6, Total Bilirubin 0.70, AST 36, ALT 39, Alkaline Phosphatase 82, Total Protein 7.1, Albumin 1.7 L, Globulin 5.4 H, Albumin/Globulin Ratio 0.3 L Micro: Microbiology 10/08/21 23:00 Interface Orders Streptococcus pneumoniae Antigen (M - Final 10/08/21 23:00 Interface Orders Legionella Antigen - Final 09/30/21 10:15 Blood Culture (Wb) - Right Hand Blood Culture - Final No growth in 5 days. 09/30/21 10:15 Blood Culture (Wb) - Anticubital Right Blood Culture - Final No growth in 5 days. 09/30/21 10:00 Nasal Secretion SARS-CoV-2 Antigen (Rapid) - Final Physical Exam Const alert and no apparent distress Constitutional Narrative: Heated high flow cannula in place. General Appearance: cooperative HEENT normocephalic and head/scalp atraumatic Eyes PERRL, EOMs intact bilaterally and conjunctivae normal Neck supple General: trachea midline Chest inspection of chest normal Chest: symmetrical chest wall rise; Negative for crepitus Resp no use of accessory muscles Effort and Inspection: symmetric chest movement Auscultation: diminished lung sounds; Negative for rales, rhonchi or wheezes Cardio regular rate and regular rhythm GI normal to inspection, nondistended, normoactive bowel sounds Extremity no clubbing, cyanosis or edema Extremity Narrative: Right BKA Skin no rashes or lesions noted Neuro CN's II-XII intact bilaterally and no focal motor deficits Psych cooperative and affect normal Charges/Coding Visit Charges Inpatient E&M: 86937 Subs Hosp L2
[2021-10-12] MEDS: Furosemide 40 MG Tablet PO (10:45)
[2021-10-12] MEDS: Potassium Chloride Oral Tablet 20 MEQ 40 MEQ PO (10:45)
[2021-10-12] MEDS: Acetaminophen 325 MG Tablet 650 MG PO (14:57)
[2021-10-12] MEDS: BENZOCAINE/MENTHOL 1 LOZENGE MUCOUS MEM (15:00)
--- NOTE | 2021-10-12 16:24 | PN.HOSP_ITS ---
Subjective Subjective Patient remains on air Vo but it does appear we are being able to wean him slowly. He has no complaints and denies any significant shortness of breath. He has periodic coughing with no sputum production. Objective Data Objective Data Vital Signs: Vital Signs Temp Pulse Resp BP Pulse Ox 98.6 F 85 19 H 120/70 93 10/12/21 14:36 10/12/21 15:53 10/12/21 15:53 10/12/21 14:36 10/12/21 15:53 Oxygen Flow Rate (L/min) 60 Oxygen Delivery Method Airvo Weight: 91.7 kg Body Mass Index (BMI) 30.1 Intake & Output: Intake and Output for Last 24 Hours 10/10/21 10/11/21 10/12/21 23:59 23:59 23:59 Intake Total 1000 / 1000 950 / 950 500 / 500 Output Total 1055 / 1055 1150 / 1150 400 / 400 Balance -55 / -55 -200 / -200 100 / 100 Lab / Micro Data Result Diagrams: 10/12/21 06:00 10/12/21 06:00 Labs: Laboratory Results - last 24 hr 10/12/21 06:00: WBC 15.5 H, RBC 5.13, Hgb 15.2, Hct 44.9, MCV 87.5, MCH 29.6, MCHC 33.9, RDW Std Deviation 43.0, RDW Coeff of [place] 13.4, Plt Count 322, MPV 11.4, Immature Gran % (Auto) 0.600, Neut % (Auto) 93.6 H, Lymph % (Auto) 3.4 L, [place] % (Auto) 0.9, Eos % (Auto) 1.4, Baso % (Auto) 0.1, Absolute Neuts (auto) 14.5 H, Absolute Lymphs (auto) 0.52 L, Nucleated RBC % 0, Platelet Estimate ADEQUATE, Plt Morphology Comment LARGE 10/12/21 06:00: Sodium 134 L, Potassium 3.5, Chloride 100, Carbon Dioxide 28.0, Anion Gap 6, BUN 24 H, Creatinine 0.80, Estim Creat Clear Calc 95.43, Est GFR (MDRD) Af Amer 124, Est GFR (MDRD) Non-Af 103, BUN/Creatinine Ratio 30.0 H, Glucose 98, Calcium 8.6, Total Bilirubin 0.70, AST 36, ALT 39, Alkaline Phosphatase 82, Total Protein 7.1, Albumin 1.7 L, Globulin 5.4 H, Albumin/Globulin Ratio 0.3 L Micro: Microbiology 10/12/21 10:45 Sputum, Expectorated/Coughed Gram Stain - Final 10/08/21 23:00 Interface Orders Streptococcus pneumoniae Antigen (M - Final 10/08/21 23:00 Interface Orders Legionella Antigen - Final 09/30/21 10:15 Blood Culture (Wb) - Right Hand Blood Culture - Final No growth in 5 days. 09/30/21 10:15 Blood Culture (Wb) - Anticubital Right Blood Culture - Final No growth in 5 days. 09/30/21 10:00 Nasal Secretion SARS-CoV-2 Antigen (Rapid) - Final Physical Exam Const alert, oriented x3 and no apparent distress Constitutional Narrative: Slightly overweight white male sitting up in a chair at the bedside, currently on air Vo, appears comfortable and nontoxic, watching television Exam Limitations: no limitations Nutritional Appearance: overweight HEENT head/scalp atraumatic and moist oral mucous membranes HEENT Narrative: No thrush, Mallampati 2 Head and Scalp: normocephalic Resp normal respiratory effort, no retractions and no use of accessory muscles Resp Narrative: Diffusely diminished with bilateral basilar crackles Auscultation: crackles; Negative for rales, rhonchi or wheezes Cardio regular rate, regular rhythm, S1 normal heart sound, S2 normal heart sound, no murmurs, no rub, no gallops, no clicks and no JVD GI normal to inspection, nondistended, normoactive bowel sounds, soft to palpation, non-tender and non-distended Extremity no clubbing, cyanosis or edema Peripheral Pulses: Yes pulses 2+ throughout Neuro oriented x3, moves all extremities and no focal motor deficits Sensorium / Orientation: awake and alert Speech: speech normal Assessment & Plan Assessment/Plan (1) Acute hypoxemic respiratory failure due to COVID-19: (2) COVID-19: (3) Leukocytosis: (4) Hyponatremia: PLAN: Acute hypoxic respiratory failure secondary to Covid 19 pneumonia -Patient remains on air Vo and is currently on a flow of 60 L/min and an FiO2 of 70%--> SPO2 is 91 to 95% with the settings -Wean O2 as able to keep oxygen saturations greater than 90% -Continue baricitinib dose 9 of 14 -Patient has completed Decadron -Continue empiric Zosyn through 10/15/2021 -Encourage incentive spirometer and Pep therapy -Prone lying and mobility as able -Lasix 40 mg IV push x1 dose -Patient is being considered for LTAC admission given prolonged COVID-19 course Leukocytosis -Sputum culture performed today -Continue empiric Zosyn -Decadron has been completed and despite this white count is up trending -CBC in a.m. Mild hyponatremia -Likely related to acute Covid infection -Stable -134 today -Repeat BMP in a.m. Deafness -Patient communicates well by reading lips or with writing information [id number] DVT prophylaxis -Continue Lovenox 40 twice daily CODE STATUS -No current CODE STATUS is in place we will need to further discuss with patient's family Charges/Coding Visit Charges Inpatient E&M: 94243 Subs Hosp L2
[2021-10-12] MEDS: 0.9% Saline Lock 10 ML Syringe IV (21:54)
[2021-10-13] VITALS (11 sets, daily range): BP systolic 106–132; BP diastolic 64–74; PULSE 72–106; RESP 18–24; TEMP 36.3–37.1; O2SAT 91–96
[2021-10-13 06:36] LABS: Absolute Lymphocyte Count 0.65 X10^3/uL (0.83-4.51); Absolute Neutrophil Count 12.8 X10^3/uL (2.0-7.7); Basophil# 0.02 X10^3/uL; Basophil% 0.1 % (0-1); Eosinophil# 0.28 X10^3/uL; Lymphocyte # 0.65 X10^3/ul (0.83-4.51); Lymphocyte % 4.7 % (19-41); Mean Corp Hgb Conc 33.3 g/dL (32-36); Mean Corpuscular Hgb 29.3 pg (27.0-32.0); Mean Corpuscular Volume 87.9 fL (80-94); Mean Platelet Vol. 11.3 fl (6.2-12.0); Monocyte# 0.12 X10^3/uL; Monocyte% 0.9 % (0-10); NRBC Flagged by Analyzer 0 % (0-5); Neutrophil # 12.75 X10^3/uL (2.7-7.7); Neutrophil % 91.7 % (47-70); POSITIVE MORPHOLOGY YES; Platelet Count 334 K/mm3 (150-450); RBC Distribution Width CV 13.4 % (11.6-14.6); RBC Distribution Width SD 43.2 fl (35.1-43.9); Red Blood Count 4.78 M/mm3 (4.6-6.2); White Blood Count 13.9 K/mm3 (4.4-11.0)
[2021-10-13 06:40] LABS: Differential Indicated SCAN CRITERIA MET
[2021-10-13 07:06] LABS: ALB/GLOB Ratio 0.3 RATIO (0.9-2.4); AST(SGOT) 36 U/L (15-37); Alanine Aminotransfer ALT/SGPT 37 U/L (16-61); Albumin, Serum 1.5 g/dL (3.2-5.0); Alkaline Phosphatase 62 U/L (45-117); Anion Gap 6 (5-15); BUN 23 mg/dL (7-18); BUN/Creat Ratio 30.4 RATIO (10-20); Calcium,Total 8.4 mg/dL (8.5-10.1); Chloride 101 mmol/L (98-107); Creatinine, Serum 0.76 mg/dL (0.70-1.30); EST Glomerular Filtration Rate 109 mL/min (>60); Est Glom Filt Rate - Afr Amer 132 mL/min (>60); Estimated Creatinine Clearance 76.35 ml/min; Globulin 5.3 g/dL (2.2-4.2); Glucose 129 mg/dL (74-106); Potassium 3.4 mmol/L (3.5-5.1); Protein, Total 6.8 g/dL (6.4-8.2); Sodium Level 135 mmol/L (136-145)
[2021-10-13] MEDS: Ipratropium/Albuterol Sulfate 3 ML AMPUL.NEB INHALATION ×3 (07:31→20:27)
--- NOTE | 2021-10-13 07:31 | PN.CC_ITS ---
Assessment & Plan Assessment/Plan (1) COVID-19: (2) Acute hypoxemic respiratory failure due to COVID-19: PLAN: RECOMMENDATIONS: 1. Wean FiO2 to maintain oxygen saturations at or above 90%. 2. Continue baricitinib (10/17/2021) and Lovenox. Completed Decadron 3. Awake prone positioning was encouraged. 4. Encourage incentive spirometer use and mobilize patient as tolerated. 5. Continue empiric antimicrobials to complete a 7-day course (10/15/2021). 6. Trial of nasal cannula today IMPRESSIONS: 1. Acute hypoxic respiratory failure secondary to COVID-19 The patient presented to the hospital with a protracted clinical course. The patient has completed a 10-day course of Decadron. He remains on baricitinib and Lovenox, along with empiric antimicrobials. We will continue to diurese intermittently as labs allow. Patient does not appear to be significantly volume overloaded clinically. CTA chest showed no evidence for PE. Continue to wean FiO2 as tolerated to maintain saturations at or above 90%. Patient has improved on high flow heated oxygen to the point that nasal cannula could be tried today. Continue scheduled bronchodilators as ordered. Given protracted course, could consider LTAC evaluation, but defer to case management. Do not believe patient is appropriate for an ECF at this time 2. Unvaccinated status/lack of PCP/advanced age/poor insight Complicates care, management, recovery and prognosis. Case management should initiate patient with a PCP on discharge. This note was generated with [employer] dictation software. It may contain incorrect words, spelling, and punctuation that were not noted in checking the note before signing. Subjective Subjective Patient did okay overnight. No acute issues were reported. Patient is reporting slight chest discomfort that he attributes to his cough. Patient denies any nausea or vomiting. Objective Data Objective Data Vital Signs: Vital Signs Temp Pulse Resp BP Pulse Ox 36.6 C 72 18 106/66 92 10/13/21 02:20 10/13/21 04:02 10/13/21 04:02 10/13/21 02:20 10/13/21 04:02 Oxygen Flow Rate (L/min) 60 Oxygen Delivery Method Airvo Weight: 93.44 kg Body Mass Index (BMI) 30.1 Intake & Output: Intake and Output for Last 24 Hours 10/11/21 10/12/21 10/13/21 23:59 23:59 23:59 Intake Total 950 / 950 1000 / 1000 50 / 50 Output Total 1150 / 1150 1100 / 1100 450 / 450 Balance -200 / -200 -100 / -100 -400 / -400 Lab / Micro Data Result Diagrams: 10/13/21 06:24 10/13/21 06:24 Labs: Laboratory Results - last 24 hr 10/13/21 06:24: WBC 13.9 H, RBC 4.78, Hgb 14.0, Hct 42.0, MCV 87.9, MCH 29.3, M CHC 33.3, RDW Std Deviation 43.2, RDW Coeff of [place] 13.4, Plt Count 334, MPV 11.3, Immature Gran % (Auto) 0.600, Neut % (Auto) 91.7 H, Lymph % (Auto) 4.7 L, Delta % (Auto) 0.9, Eos % (Auto) 2.0, Baso % (Auto) 0.1, Absolute Neuts (auto) 12.8 H, Absolute Lymphs (auto) 0.65 L, Nucleated RBC % 0 10/13/21 06:24: Sodium 135 L, Potassium 3.4 L, Chloride 101, Carbon Dioxide 28.0, Anion Gap 6, BUN 23 H, Creatinine 0.76, Estim Creat Clear Calc 76.35, Est GFR (MDRD) Af Amer 132, Est GFR (MDRD) Non-Af 109, BUN/Creatinine Ratio 30.4 H, Glucose 129 H, Calcium 8.4 L, Total Bilirubin 0.50, AST 36, ALT 37, Alkaline Phosphatase 62, Total Protein 6.8, Albumin 1.5 L, Globulin 5.3 H, Albumin/Globulin Ratio 0.3 L Micro: Microbiology 10/12/21 10:45 Sputum, Expectorated/Coughed Gram Stain - Final 10/08/21 23:00 Interface Orders Streptococcus pneumoniae Antigen (M - Final 10/08/21 23:00 Interface Orders Legionella Antigen - Final 09/30/21 10:15 Blood Culture (Wb) - Right Hand Blood Culture - Final No growth in 5 days. 09/30/21 10:15 Blood Culture (Wb) - Anticubital Right Blood Culture - Final No growth in 5 days. 11/10/21 10:00 Nasal Secretion SARS-CoV-2 Antigen (Rapid) - Final Physical Exam Const alert and no apparent distress Constitutional Narrative: Heated high flow cannula in place. General Appearance: cooperative HEENT normocephalic and head/scalp atraumatic Eyes PERRL, EOMs intact bilaterally and conjunctivae normal Neck supple General: trachea midline Chest inspection of chest normal Chest: symmetrical chest wall rise; Negative for crepitus Resp no use of accessory muscles Effort and Inspection: symmetric chest movement Auscultation: diminished lung sounds; Negative for rales, rhonchi or wheezes Cardio regular rate and regular rhythm GI normal to inspection, nondistended, normoactive bowel sounds Extremity no clubbing, cyanosis or edema Extremity Narrative: Right BKA Skin no rashes or lesions noted Neuro CN's II-XII intact bilaterally and no focal motor deficits Psych cooperative and affect normal Charges/Coding Visit Charges Inpatient E&M: 09144 Subs Hosp L2
[2021-10-13] MEDS: Enoxaparin 40 MG/0.4 ML Syringe SC ×2 (09:48→21:27)
[2021-10-13] MEDS: Potassium Chloride Oral Tablet 20 MEQ 40 MEQ PO (09:48)
[2021-10-13] MEDS: Ascorbic Acid 500 MG Tablet 1000 MG PO ×2 (09:49→18:20)
[2021-10-13] MEDS: guaiFENesin 1,200 MG Tablet 1200 MG PO ×2 (09:49→21:27)
[2021-10-13] MEDS: Oxymetazoline 0.05% 1 SPRAY SPRAY.BTL NASAL (09:57)
[2021-10-13] MEDS: BENZOCAINE/MENTHOL 1 LOZENGE MUCOUS MEM (12:04)
--- NOTE | 2021-10-13 13:19 | PN.HOSP_ITS ---
Subjective Subjective Patient reports that he is feeling okay. He has intermittent coughing spells depending on his activity level. He remains on air Vo at this time without significant ability to wean him in the last 24 hours. No issues overnight. Objective Data Objective Data Vital Signs: Vital Signs Temp Pulse Resp BP Pulse Ox 97.3 F L 95 20 H 107/73 96 10/13/21 12:01 10/13/21 12:01 10/13/21 12:01 10/13/21 12:01 10/13/21 12:01 Oxygen Flow Rate (L/min) 60 Oxygen Delivery Method Airvo Weight: 93.44 kg Body Mass Index (BMI) 30.1 Intake & Output: Intake and Output for Last 24 Hours 10/11/21 10/12/21 10/13/21 23:59 23:59 23:59 Intake Total 950 / 950 1000 / 1000 100 / 100 Output Total 1150 / 1150 1100 / 1100 450 / 450 Balance -200 / -200 -100 / -100 -350 / -350 Lab / Micro Data Result Diagrams: 10/13/21 06:24 10/13/21 06:24 Labs: Laboratory Results - last 24 hr 10/13/21 06:24: WBC 13.9 H, RBC 4.78, Hgb 14.0, Hct 42.0, MCV 87.9, MCH 29.3, MCHC 33.3, RDW Std Deviation 43.2, RDW Coeff of [place] 13.4, Plt Count 334, MPV 11.3, Immature Gran % (Auto) 0.600, Neut % (Auto) 91.7 H, Lymph % (Auto) 4.7 L, [place] % (Auto) 0.9, Eos % (Auto) 2.0, Baso % (Auto) 0.1, Absolute Neuts (auto) 12.8 H, Absolute Lymphs (auto) 0.65 L, Nucleated RBC % 0 10/13/21 06:24: Sodium 135 L, Potassium 3.4 L, Chloride 101, Carbon Dioxide 28.0 , Anion Gap 6, BUN 23 H, Creatinine 0.76, Estim Creat Clear Calc 76.35, Est GFR (MDRD) Af Amer 132, Est GFR (MDRD) Non-Af 109, BUN/Creatinine Ratio 30.4 H, Glucose 129 H, Calcium 8.4 L, Total Bilirubin 0.50, AST 36, ALT 37, Alkaline Phosphatase 62, Total Protein 6.8, Albumin 1.5 L, Globulin 5.3 H, Albumin/Globulin Ratio 0.3 L Micro: Microbiology 10/12/21 10:45 Sputum, Expectorated/Coughed Gram Stain - Final 10/12/21 10:45 Sputum, Expectorated/Coughed Respiratory Culture - Preliminary Appears to be normal respiratory jennifer. Further studies to follow. 10/08/21 23:00 Interface Orders Streptococcus pneumoniae Antigen (M - Final 10/08/21 23:00 Interface Orders Legionella Antigen - Final 09/30/21 10:15 Blood Culture (Wb) - Right Hand Blood Culture - Final No growth in 5 days. 09/30/21 10:15 Blood Culture (Wb) - Anticubital Right Blood Culture - Final No growth in 5 days. 09/30/21 10:00 Nasal Secretion SARS-CoV-2 Antigen (Rapid) - Final Physical Exam Const alert, oriented x3 and no apparent distress Constitutional Narrative: Slightly overweight white male sitting up in a chair at the bedside, currently on air Vo, appears comfortable and nontoxic, watching television General Appearance: cooperative, well kempt and well developed Orientation / Consciousness: awake, oriented to person, oriented to place and oriented to time Exam Limitations: no limitations Nutritional Appearance: overweight HEENT normocephalic, head/scalp atraumatic and moist oral mucous membranes HEENT Narrative: Mallampati 2, no thrush Head and Scalp: normocephalic Neck nuchal rigidity and thyroid normal General: trachea midline Resp normal respiratory effort, no retractions, no use of accessory muscles and clear to auscultation bilaterally Resp Narrative: Diffusely diminished with bilateral basilar crackles Auscultation: crackles; Negative for rales, rhonchi or wheezes Cardio regular rate, regular rhythm, S1 normal heart sound, S2 normal heart sound, no murmurs, no rub, no gallops, no clicks and no JVD GI normal to inspection, nondistended, normoactive bowel sounds, soft to palpation, non-tender and non-distended; Negative for hepatosplenomegaly Extremity no clubbing, cyanosis or edema Peripheral Pulses: Yes pulses 2+ throughout Skin no rashes or lesions noted General Skin Exam: no breakdown Neuro oriented x3, moves all extremities and no focal motor deficits Sensorium / Orientation: awake and alert Psych thought process normal Appearance: appropriate Assessment & Plan Assessment/Plan (1) Acute hypoxemic respiratory failure due to COVID-19: (2) COVID-19: (3) Leukocytosis: (4) Hyponatremia: PLAN: Acute hypoxic respiratory failure secondary to Covid 19 pneumonia -Patient remains on air Vo and is currently on a flow of 67 L/min and an FiO2 of 70%--> SPO2 is 91 to 95% with the settings -Wean O2 as able to keep oxygen saturations greater than 90% -Continue baricitinib dose -Patient has completed Decadron -Continue empiric Zosyn through 10/15/2021 -Encourage incentive spirometer and Pep therapy -Prone lying and mobility as able -Lasix 40 mg IV push x1 dose again today -Patient is being considered for LTAC admission given prolonged COVID-19 course Leukocytosis -Sputum culture thus far is respiratory jennifer -Continue empiric Zosyn -White count has trended down the last 24 hours -CBC in a.m. Mild hyponatremia -Likely related to acute Covid infection -Stable -135 today -Repeat BMP in a.m. Hypokalemia -P.o. K. Dur 40 mEq x 1 dose -Repeat BMP in a.m. Deafness -Patient communicates well by reading lips or with writing information [id number] DVT prophylaxis -Continue Lovenox 40 twice daily CODE STATUS -No current CODE STATUS is in place we will need to further discuss with patient's family Charges/Coding Visit Charges Inpatient E&M: 82604 Subs Hosp L2
--- NOTE | 2021-10-13 13:26 | CASEMGMT ---
Addendum entered by Camilla Noonan 10/13/21 15:11: TC to [facility], they do have beds but again will not take pt until at 60% for 24 hours. RN CM to follow. Original Note: RN CM in to pt room, CAPR wore so patient could read lips. Pt at bedside. Asked if pt would like this RN CM to write down conversation, pt shook head no. Discussed LTACH options and provided pt with a list of LTACH providers including quality and resource use data and consistent with the patient?s preferred geographic region, medical needs, and insurance network. The patient?s preferred provider [facility]. TC to [facility], spoke with Happy. She states currently they have no beds until next week. They would be able to accept pt with MCR if pt has had a 3 day ICU or stepdown stay. Also pt FiO2 needs to be 60% or less for trf. Currently pt is at 75%.
[2021-10-13] MEDS: Furosemide 40 MG/4 ML Vial IV (14:56)
[2021-10-13] MEDS: 0.9% Saline Lock 10 ML Syringe IV (14:56)
[2021-10-14] VITALS (10 sets, daily range): BP systolic 106–118; BP diastolic 58–89; PULSE 75–106; RESP 18–22; TEMP 36.1–37.3; O2SAT 88–96
[2021-10-14] MEDS: Acetaminophen 325 MG Tablet 650 MG PO (05:59)
[2021-10-14] MEDS: Oxymetazoline 0.05% 1 SPRAY SPRAY.BTL NASAL (06:03)
[2021-10-14 06:54] LABS: Absolute Lymphocyte Count 0.81 X10^3/uL (0.83-4.51); Absolute Neutrophil Count 12.4 X10^3/uL (2.0-7.7); Basophil# 0.04 X10^3/uL; Basophil% 0.3 % (0-1); Eosinophil# 0.15 X10^3/uL; Eosinophils% 1.1 % (0-5); Hematocrit 45.2 % (40-54); Hemoglobin 14.9 g/dL (13.0-16.5); Lymphocyte # 0.81 X10^3/ul (0.83-4.51); Lymphocyte % 5.9 % (19-41); Mean Corpuscular Hgb 29.4 pg (27.0-32.0); Mean Corpuscular Volume 89.2 fL (80-94); Mean Platelet Vol. 11.3 fl (6.2-12.0); Monocyte# 0.17 X10^3/uL; Monocyte% 1.2 % (0-10); NRBC Flagged by Analyzer 0 % (0-5); Neutrophil # 12.43 X10^3/uL (2.7-7.7); Neutrophil % 90.6 % (47-70); Platelet Count 397 K/mm3 (150-450); RBC Distribution Width CV 13.6 % (11.6-14.6); RBC Distribution Width SD 44.5 fl (35.1-43.9); Red Blood Count 5.07 M/mm3 (4.6-6.2); White Blood Count 13.7 K/mm3 (4.4-11.0)
[2021-10-14] MEDS: Ipratropium/Albuterol Sulfate 3 ML AMPUL.NEB INHALATION ×2 (07:02→19:15)
[2021-10-14 07:36] LABS: ALB/GLOB Ratio 0.2 RATIO (0.9-2.4); AST(SGOT) 43 U/L (15-37); Alanine Aminotransfer ALT/SGPT 47 U/L (16-61); Albumin, Serum 1.5 g/dL (3.2-5.0); Alkaline Phosphatase 71 U/L (45-117); Anion Gap 9 (5-15); BUN 23 mg/dL (7-18); BUN/Creat Ratio 29.5 RATIO (10-20); Chloride 100 mmol/L (98-107); Creatinine, Serum 0.78 mg/dL (0.70-1.30); EST Glomerular Filtration Rate 105 mL/min (>60); Est Glom Filt Rate - Afr Amer 128 mL/min (>60); Estimated Creatinine Clearance 76.35 ml/min; Glucose 103 mg/dL (74-106); Potassium 3.8 mmol/L (3.5-5.1); Protein, Total 7.5 g/dL (6.4-8.2); Sodium Level 137 mmol/L (136-145)
[2021-10-14] MEDS: Ascorbic Acid 500 MG Tablet 1000 MG PO ×2 (07:43→18:48)
--- NOTE | 2021-10-14 09:39 | CASEMGMT ---
Addendum entered by Camilla Noonan 10/14/21 11:33: RN CM in to pt room, had a written conversation with patient regarding [facility] not having any beds in [place] but [facility] does. Pt asked why he is being kicked out of the hospital. Attempted to explain that pt is unsuccessful at being weaned down on his oxygen and he can be treated at a LTACH. Pt then agreed to [facility]. He wrote sighs. Made him aware we will see how he is doing on Tuesday and how his O2 is doing. He is agreeable to this. Updated this am in rounds. Addendum entered by Camilla Noonan 10/14/21 09:48: Received tc back from [facility], faxed referral information over. She states she will review and on Tuesday can see how pt has done and go from there. Original Note: Noted pt has one bed code day on tele. TC to [facility], left message to verify that pt requires 3 days in tele or ICU status and if there are any exceptions for COVID. Requested returned call.
[2021-10-14] MEDS: guaiFENesin 1,200 MG Tablet 1200 MG PO ×2 (11:18→20:59)
[2021-10-14] MEDS: Enoxaparin 40 MG/0.4 ML Syringe SC ×2 (11:19→20:59)
[2021-10-14] MEDS: Polyethylene Glycol 3350 17 GM PACKET PO ×2 (11:28→20:59)
--- NOTE | 2021-10-14 14:57 | PN.CC_ITS ---
Assessment & Plan Assessment/Plan (1) COVID-19: (2) Acute hypoxemic respiratory failure due to COVID-19: PLAN: RECOMMENDATIONS: 1. Wean FiO2 to maintain oxygen saturations at or above 90%. 2. Continue baricitinib (10/17/2021) and Lovenox. Completed Decadron 3. Awake prone positioning was encouraged. 4. Encourage incentive spirometer use and mobilize patient as tolerated. 5. Continue empiric antimicrobials to complete a 7-day course (10/15/2021). 6. Await sputum culture to see if Aspergillus IMPRESSIONS: 1. Acute hypoxic respiratory failure secondary to COVID-19 The patient presented to the hospital with a protracted clinical course. The patient has completed a 10-day course of Decadron. He remains on bariciti nib and Lovenox, along with empiric antimicrobials. We will continue to diurese intermittently as labs allow. Patient does not appear to be significantly volume overloaded clinically. CTA chest showed no evidence for PE. Continue to wean FiO2 as tolerated to maintain saturations at or above 90%. Continue scheduled bronchodilators as ordered. Given protracted course, could consider LTAC evaluation, but defer to case management. Patient does have a possible fungus on sputum. Cannot exclude a secondary infection with Aspergillus. If aspergillus, recommend infectious disease consult and possible voriconazole. No hemoptysis has been reported. 2. Unvaccinated status/lack of PCP/advanced age/poor insight Complicates care, management, recovery and prognosis. Case management should initiate patient with a PCP on discharge. This note was generated with [employer] dictation software. It may contain incorrect words, spelling, and punctuation that were not noted in checking the note before signing. Subjective Subjective Patient relatively unchanged compared to previous. Patient is not reporting any current chest pain, but does continue to have a cough. No nausea or vomiting have been reported. Patient is not reporting any hemoptysis. Objective Data Objective Data Vital Signs: Vital Signs Temp Pulse Resp BP Pulse Ox 36.6 C 78 18 112/65 92 10/14/21 02:40 10/14/21 08:00 10/14/21 07:02 10/14/21 02:40 10/14/21 14:30 Oxygen Flow Rate (L/min) 10 Oxygen Delivery Method Nasal Cannula Weight: 93.44 kg Body Mass Index (BMI) 30.1 Intake & Output: Intake and Output for Last 24 Hours 10/12/21 10/13/21 10/14/21 23:59 23:59 23:59 Intake Total 1000 / 1000 570 / 570 100 / 100 Output Total 1100 / 1100 1350 / 1350 225 / 225 Balance -100 / -100 -780 / -780 -125 / -125 Lab / Micro Data Result Diagrams: 10/14/21 06:05 10/14/21 06:05 Labs: Laboratory Results - last 24 hr 10/14/21 06:05: WBC 13.7 H, RBC 5.07, Hgb 14.9, Hct 45.2, MCV 89.2, MCH 29.4, MCHC 33.0, RDW Std Deviation 44.5 H, RDW Coeff of [place] 13.6, Plt Count 397, MPV 11.3, Immature Gran % (Auto) 0.900, Neut % (Auto) 90.6 H, Lymph % (Auto) 5.9 L, [place] % (Auto) 1.2, Eos % (Auto) 1.1, Baso % (Auto) 0.3, Absolute Neuts (auto) 12.4 H, Absolute Lymphs (auto) 0.81 L, Nucleated RBC % 0 10/14/21 06:05: Sodium 137, Potassium 3.8, Chloride 100, Carbon Dioxide 28.0, Anion Gap 9, BUN 23 H, Creatinine 0.78, Estim Creat Clear Calc 76.35, Est GFR (MDRD) Af Amer 128, Est GFR (MDRD) Non-Af 105, BUN/Creatinine Ratio 29.5 H, Glucose 103, Calcium 9.0, Total Bilirubin 0.50, AST 43 H, ALT 47, Alkaline Phosphatase 71, Total Protein 7.5, Albumin 1.5 L, Globulin 6.0 H, Albumin/Globulin Ratio 0.2 L Micro: Microbiology 10/12/21 10:45 Sputum, Expectorated/Coughed Gram Stain - Final 10/12/21 10:45 Sputum, Expectorated/Coughed Respiratory Culture - Preliminary Possible Fungus 10/08/21 23:00 Interface Orders Streptococcus pneumoniae Antigen (M - Final 10/08/21 23:00 Interface Orders Legionella Antigen - Final 09/30/21 10:15 Blood Culture (Wb) - Right Hand Blood Culture - Final No growth in 5 days. 09/30/21 10:15 Blood Culture (Wb) - Anticubital Right Blood Culture - Final No growth in 5 days. 09/30/21 10:00 Nasal Secretion SARS-CoV-2 Antigen (Rapid) - Final Physical Exam Const alert and no apparent distress Constitutional Narrative: Sitting in the chair with heated high flow cannula in place. General Appearance: cooperative HEENT normocephalic and head/scalp atraumatic Eyes PERRL, EOMs intact bilaterally and conjunctivae normal Neck supple General: trachea midline Chest inspection of chest normal Chest: symmetrical chest wall rise; Negative for crepitus Resp no use of accessory muscles Effort and Inspection: symmetric chest movement Auscultation: diminished lung sounds; Negative for rales, rhonchi or wheezes Cardio regular rate and regular rhythm GI normal to inspection, nondistended, normoactive bowel sounds Extremity no clubbing, cyanosis or edema Extremity Narrative: Right BKA Skin no rashes or lesions noted Neuro CN's II-XII intact bilaterally and no focal motor deficits Psych cooperative and affect normal Charges/Coding Visit Charges Inpatient E&M: 56282 Subs Hosp L2
--- NOTE | 2021-10-14 15:26 | PN.HOSP_ITS ---
Subjective Subjective No issues overnight. Per discussion with nursing cough is improved and they are working on weaning his oxygen status. Ideally we would love to get him to heated high flow nasal cannula from air Vo today. Objective Data Objective Data Vital Signs: Vital Signs Temp Pulse Resp BP Pulse Ox 97.0 F L 75 18 118/89 H 93 10/14/21 14:59 10/14/21 14:59 10/14/21 14:59 10/14/21 14:59 10/14/21 14:59 Oxygen Flow Rate (L/min) 10 Oxygen Delivery Method High Flow Weight: 93.44 kg Body Mass Index (BMI) 30.1 Intake & Output: Intake and Output for Last 24 Hours 10/12/21 10/13/21 10/14/21 23:59 23:59 23:59 Intake Total 1000 / 1000 570 / 570 950 / 950 Output Total 1100 / 1100 1350 / 1350 875 / 875 Balance -100 / -100 -780 / -780 75 / 75 Lab / Micro Data Result Diagrams: 10/14/21 06:05 10/14/21 06:05 Labs: Laboratory Results - last 24 hr 10/14/21 06:05: WBC 13.7 H, RBC 5.07, Hgb 14.9, Hct 45.2, MCV 89.2, MCH 29.4, MCHC 33.0, RDW Std Deviation 44.5 H, RDW Coeff of [place] 13.6, Plt Count 397, MPV 11.3, Immature Gran % (Auto) 0.900, Neut % (Auto) 90.6 H, Lymph % (Auto) 5.9 L, [place] % (Auto) 1.2, Eos % (Auto) 1.1, Baso % (Auto) 0.3, Absolute Neuts (auto) 12.4 H, Absolute Lymphs (auto) 0.81 L, Nucleated RBC % 0 10/14/21 06:05: Sodium 137, Potassium 3.8, Chloride 100, Carbon Dioxide 28.0, Anion Gap 9, BUN 23 H, Creatinine 0.78, Estim Creat Clear Calc 76.35, Est GFR (MDRD) Af Amer 128, Est GFR (MDRD) Non-Af 105, BUN/Creatinine Ratio 29.5 H, Glucose 103, Calcium 9.0, Total Bilirubin 0.50, AST 43 H, ALT 47, Alkaline Phosphatase 71, Total Protein 7.5, Albumin 1.5 L, Globulin 6.0 H, Albumin/Globulin Ratio 0.2 L Micro: Microbiology 10/12/21 10:45 Sputum, Expectorated/Coughed Gram Stain - Final 10/12/21 10:45 Sputum, Expectorated/Coughed Respiratory Culture - Preliminary Possible Fungus 10/08/21 23:00 Interface Orders Streptococcus pneumoniae Antigen (M - Final 10/08/21 23:00 Interface Orders Legionella Antigen - Final 09/30/21 10:15 Blood Culture (Wb) - Right Hand Blood Culture - Final No growth in 5 days. 09/30/21 10:15 Blood Culture (Wb) - Anticubital Right Blood Culture - Final No growth in 5 days. 09/30/21 10:00 Nasal Secretion SARS-CoV-2 Antigen (Rapid) - Final Physical Exam Const alert, oriented x3 and no apparent distress Constitutional Narrative: Slightly overweight white male sitting up in a chair at the bedside, currently on air Vo, appears comfortable and nontoxic, watching television, nursing at the bedside General Appearance: cooperative, well kempt and well developed Orientation / Consciousness: awake, oriented to person, oriented to place and oriented to time Exam Limitations: no limitations Nutritional Appearance: overweight HEENT normocephalic, head/scalp atraumatic and moist oral mucous membranes HEENT Narrative: No thrush Head and Scalp: normocephalic Neck nuchal rigidity and thyroid normal General: trachea midline Resp normal respiratory effort, no retractions, no use of accessory muscles and clear to auscultation bilaterally Resp Narrative: Diffusely diminished with bilateral basilar crackles right greater than left Auscultation: crackles; Negative for rales, rhonchi or wheezes Cardio regular rate, regular rhythm, S1 normal heart sound, S2 normal heart sound, no murmurs, no rub, no gallops, no clicks and no JVD GI normal to inspection, nondistended, normoactive bowel sounds, soft to palpation, non-tender and non-distended; Negative for hepatosplenomegaly Extremity no clubbing, cyanosis or edema Peripheral Pulses: Yes pulses 2+ throughout Skin General Skin Exam: no breakdown Neuro moves all extremities and no focal motor deficits Sensorium / Orientation: awake and alert Psych thought process normal Appearance: appropriate Assessment & Plan Assessment/Plan (1) Acute hypoxemic respiratory failure due to COVID-19: (2) COVID-19: (3) Leukocytosis: (4) Hyponatremia: PLAN: Acute hypoxic respiratory failure secondary to Covid 19 pneumonia -Patient has been able to be weaned to 10 L nasal cannula -We will try to get him on BiPAP at night and continue to wean during the day -Continue baricitinib dose -Patient has completed Decadron -Continue empiric Zosyn through 10/15/2021 -Encourage incentive spirometer and Pep therapy -Prone lying and mobility as able -Lasix 40 mg IV push x1 dose again today -Patient will not qualify for LTAC Leukocytosis -Sputum culture is showing possible fungus -Will await final to rule out Aspergillus -Continue empiric Zosyn to be completed on 10/15/2021 -White count is relatively stable -CBC in a.m. Mild hyponatremia -Resolved Hypokalemia -Resolved Deafness -Patient communicates well by reading lips or with writing information back-and- forth DVT prophylaxis -Continue Lovenox 40 twice daily CODE STATUS -No current CODE STATUS is in place we will need to further discuss with patient's family Charges/Coding Visit Charges Inpatient E&M: 41695 Subs Hosp L2
[2021-10-14] MEDS: 0.9% Saline Lock 10 ML Syringe IV (15:51)
[2021-10-14] MEDS: Furosemide 40 MG/4 ML Vial IV (15:51)
[2021-10-15] VITALS (16 sets, daily range): BP systolic 103–125; BP diastolic 60–78; PULSE 88–118; RESP 16–24; TEMP 36.6–36.8; O2SAT 87–96
[2021-10-15] MEDS: Ipratropium/Albuterol Sulfate 3 ML AMPUL.NEB INHALATION ×3 (07:09→20:10)
--- NOTE | 2021-10-15 07:24 | PCM.PN.INT ---
Assessment & Plan Assessment/Plan (1) COVID-19: (2) Acute hypoxemic respiratory failure due to COVID-19: PLAN: RECOMMENDATIONS: 1. Continue to wean supplemental oxygen to maintain saturations at or above 90%. 2. Continue baricitinib (10/17/2021) and Lovenox. 3. Awake prone positioning was encouraged. 4. Encourage incentive spirometer use and mobilize patient as tolerated. IMPRESSIONS: 1. Acute hypoxic respiratory failure secondary to COVID-19 The patient presented to the hospital with a protracted clinical course. The patient has completed a 10-day course of Decadron. He remains on baricitinib and Lovenox, along with empiric antimicrobials. We will continue to diurese intermittently as labs allow. The patient does not appear to be significantly volume overloaded clinically. CTA chest showed no evidence for PE. Continue to wean supplemental oxygen to maintain saturations at or above 90%. Continue scheduled bronchodilators as ordered. Given protracted course, could consider LTAC evaluation, but defer to case management. The patient does have a possible fungus on sputum. Cannot exclude a secondary infection with Aspergillus. If aspergillus, recommend infectious disease consult and possible voriconazole. 2. Unvaccinated status/lack of PCP/advanced age/poor insight Complicates care, management, recovery and prognosis. Case management should initiate patient with a PCP on discharge. This note was generated with [employer] dictation software. It may contain incorrect words, spelling, and punctuation that were not noted in checking the note before signing. Subjective Subjective The patient was seen and examined at the bedside this morning. Events from the last 24 hours have been reviewed. The patient is currently afebrile, hemodynamically stable and maintaining appropriate oxygen saturations on 13 L/min via nasal cannula. The patient is currently documented to be overall net -9.3 L for the hospitalization. The patient remains on antimicrobials, baricitinib, twice daily Lovenox, and scheduled bronchodilators. Objective Data Objective Data The patient's most recent lab work, culture data and imaging studies have all been personally reviewed. Coronavirus PCR was positive on September 30. MRSA screen was negative. Strep and urine Legionella antigens were negative. Vital Signs: Vital Signs Temp Pulse Resp BP Pulse Ox 97.8 F 90 20 H 103/60 96 10/15/21 02:57 10/15/21 05:46 10/15/21 05:46 10/15/21 02:57 10/15/21 05:46 Oxygen Flow Rate (L/min) 55 Oxygen Delivery Method Airvo Weight: 93.44 kg Body Mass Index (BMI) 30.1 Intake & Output: Intake and Output for Last 24 Hours 10/13/21 10/14/21 10/15/21 23:59 23:59 23:59 Intake Total 570 / 570 1000 / 1500 1350 / 1350 Output Total 1350 / 1350 875 / 1700 825 / 825 Balance -780 / -780 125 / -200 525 / 525 Lab / Micro Data Attestation: I reviewed the patient's lab results. Result Diagrams: 10/14/21 06:05 10/14/21 06:05 Labs: Laboratory Results - last 24 hr 10/14/21 06:05: Sodium 137, Potassium 3.8, Chloride 100, Carbon Dioxide 28.0, Anion Gap 9, BUN 23 H, Creatinine 0.78, Estim Creat Clear Calc 76.35, Est GFR (MDRD) Af Amer 128, Est GFR (MDRD) Non-Af 105, BUN/Creatinine Ratio 29.5 H, Glucose 103, Calcium 9.0, Total Bilirubin 0.50, AST 43 H, ALT 47, Alkaline Phosphatase 71, Total Protein 7.5, Albumin 1.5 L, Globulin 6.0 H, Albumin/Globulin Ratio 0.2 L Micro: Microbiology 10/12/21 10:45 Sputum, Expectorated/Coughed Gram Stain - Final 10/12/21 10:45 Sputum, Expectorated/Coughed Respiratory Culture - Preliminary Possible Fungus 10/08/21 23:00 Interface Orders Streptococcus pneumoniae Antigen (M - Final 10/08/21 23:00 Interface Orders Legionella Antigen - Final 09/30/21 10:15 Blood Culture (Wb) - Right Hand Blood Culture - Final No growth in 5 days. 09/30/21 10:15 Blood Culture (Wb) - Anticubital Right Blood Culture - Final No growth in 5 days. 09/30/21 10:00 Nasal Secretion SARS-CoV-2 Antigen (Rapid) - Final Physical Exam Const alert and no apparent distress Constitutional Narrative: Sitting in bedside recliner. General Appearance: cooperative HEENT normocephalic and head/scalp atraumatic Eyes PERRL and EOMs intact bilaterally Neck supple General: trachea midline Chest inspection of chest normal Resp Auscultation: diminished lung sounds Cardio regular rate and regular rhythm GI normal to inspection, nondistended, normoactive bowel sounds Extremity no clubbing, cyanosis or edema Skin no rashes or lesions noted Neuro CN's II-XII intact bilaterally and no focal motor deficits Psych cooperative and affect normal Charges/Coding Visit Charges Inpatient E&M: 72737 Subs Hosp L2
[2021-10-15] MEDS: Acetaminophen 325 MG Tablet 650 MG PO ×2 (07:30→18:52)
[2021-10-15] MEDS: Ascorbic Acid 500 MG Tablet 1000 MG PO ×2 (07:30→17:29)
[2021-10-15] MEDS: BENZOCAINE/MENTHOL 1 LOZENGE MUCOUS MEM (07:30)
[2021-10-15] MEDS: Enoxaparin 40 MG/0.4 ML Syringe SC ×2 (10:42→20:44)
[2021-10-15] MEDS: guaiFENesin 1,200 MG Tablet 1200 MG PO ×2 (10:43→20:44)
--- NOTE | 2021-10-15 11:14 | PCM.PN.HOSP ---
Subjective Subjective Patient denies any issues overnight. He was compliant wearing air Vo overnight and then is down heated high flow nasal cannula this morning at 12 L. His coughing again has improved as has the shortness of breath. Patient is anxious to go home but I did review with him he needs to be on 6 L or less with ambulation prior to discharge. He voiced understanding. Objective Data Objective Data Vital Signs: Vital Signs Temp Pulse Resp BP Pulse Ox 97.8 F 106 H 18 103/60 95 10/15/21 02:57 10/15/21 07:09 10/15/21 07:09 10/15/21 02:57 10/15/21 07:09 Oxygen Flow Rate (L/min) 12 Oxygen Delivery Method Nasal Cannula Weight: 93.44 kg Body Mass Index (BMI) 30.1 Intake & Output: Intake and Output for Last 24 Hours 10/13/21 10/14/21 10/15/21 23:59 23:59 23:59 Intake Total 570 / 570 1000 / 1500 1350 / 1350 Output Total 1350 / 1350 875 / 1700 825 / 825 Balance -780 / -780 125 / -200 525 / 525 Lab / Micro Data Result Diagrams: 10/14/21 06:05 10/14/21 06:05 Micro: Microbiology 10/12/21 10:45 Sputum, Expectorated/Coughed Gram Stain - Final 10/12/21 10:45 Sputum, Expectorated/Coughed Respiratory Culture - Preliminary Possible Fungus 10/08/21 23:00 Interface Orders Streptococcus pneumoniae Antigen (M - Final 10/08/21 23:00 Interface Orders Legionella Antigen - Final 09/30/21 10:15 Blood Culture (Wb) - Right Hand Blood Culture - Final No growth in 5 days. 09/30/21 10:15 Blood Culture (Wb) - Anticubital Right Blood Culture - Final No growth in 5 days. 09/30/21 10:00 Nasal Secretion SARS-CoV-2 Antigen (Rapid) - Final Physical Exam Const alert, oriented x3 and no apparent distress Constitutional Narrative: Slightly overweight white male sitting up in a chair at the bedside, currently on heated high flow nasal cannula appears comfortable and nontoxic, watching television General Appearance: cooperative, well kempt and well developed Orientation / Consciousness: awake, oriented to person, oriented to place and oriented to time Exam Limitations: no limitations Nutritional Appearance: overweight HEENT normocephalic, head/scalp atraumatic and moist oral mucous membranes HEENT Narrative: Mallampati 2, no thrush Head and Scalp: normocephalic Neck nuchal rigidity and thyroid normal General: trachea midline Resp normal respiratory effort, no retractions, no use of accessory muscles and clear to auscultation bilaterally Resp Narrative: Diffusely diminished with bilateral basilar crackles right greater than left Auscultation: crackles; Negative for rales, rhonchi or wheezes Cardio regular rate, regular rhythm, S1 normal heart sound, S2 normal heart sound, no murmurs, no rub, no gallops, no clicks and no JVD GI normal to inspection, nondistended, normoactive bowel sounds, soft to palpation, non-tender and non-distended; Negative for hepatosplenomegaly Extremity no clubbing, cyanosis or edema Extremity Narrative: Right lower extremity BKA Peripheral Pulses: Yes pulses 2+ throughout Skin General Skin Exam: no breakdown Neuro moves all extremities and no focal motor deficits Sensorium / Orientation: awake and alert Psych thought process normal Appearance: appropriate Assessment & Plan Assessment/Plan (1) Acute hypoxemic respiratory failure due to COVID-19: (2) COVID-19: (3) Leukocytosis: (4) Hyponatremia: PLAN: Acute hypoxic respiratory failure secondary to Covid 19 pneumonia -Patient has been able to be weaned to 10 L nasal cannula -We will try to get him on BiPAP at night and continue to wean during the day -Continue baricitinib dose 12 of 14 -Patient has completed Decadron -Continue empiric Zosyn through today -Encourage incentive spirometer and Pep therapy -Prone lying and mobility as able -Continue Lasix-patient is -9 L for the stay -Patient will not qualify for LTAC Leukocytosis -Sputum culture is showing possible fungus -Will await final to rule out Aspergillus--> still pending -Continue empiric Zosyn to be completed today -White count is relatively stable Deafness -Patient communicates well by reading lips or with writing information [id number] DVT prophylaxis -Continue Lovenox 40 twice daily CODE STATUS -No current CODE STATUS is in place we will need to further discuss with patient's family Charges/Coding Visit Charges Inpatient E&M: 42947 Subs Hosp L2
[2021-10-15] MEDS: Furosemide 40 MG/4 ML Vial IV (13:20)
[2021-10-15] MEDS: 0.9% Saline Lock 10 ML Syringe IV (13:20)
[2021-10-15] MEDS: Polyethylene Glycol 3350 17 GM PACKET PO (20:44)
[2021-10-16] VITALS (15 sets, daily range): BP systolic 90–133; BP diastolic 49–99; PULSE 99–120; RESP 16–28; TEMP 36.6–36.9; O2SAT 90–96
[2021-10-16] MEDS: Oxymetazoline 0.05% 1 SPRAY SPRAY.BTL NASAL (01:41)
[2021-10-16] MEDS: Acetaminophen 325 MG Tablet 650 MG PO (06:12)
[2021-10-16 06:14] LABS: Anion Gap 10 (5-15); BUN 29 mg/dL (7-18); BUN/Creat Ratio 39.8 RATIO (10-20); Calcium,Total 8.6 mg/dL (8.5-10.1); Chloride 100 mmol/L (98-107); Creatinine, Serum 0.73 mg/dL (0.70-1.30); EST Glomerular Filtration Rate 114 mL/min (>60); Est Glom Filt Rate - Afr Amer 138 mL/min (>60); Estimated Creatinine Clearance 76.35 ml/min; Glucose 106 mg/dL (74-106); Potassium 3.6 mmol/L (3.5-5.1); Sodium Level 136 mmol/L (136-145)
--- NOTE | 2021-10-16 06:36 | PN.CC_ITS ---
Assessment & Plan Assessment/Plan (1) COVID-19: (2) Acute hypoxemic respiratory failure due to COVID-19: PLAN: RECOMMENDATIONS: 1. Continue to wean supplemental oxygen to maintain saturations at or above 90%. 2. Continue baricitinib (10/17/2021) and Lovenox. 3. Awake prone positioning was encouraged. 4. Encourage incentive spirometer use and mobilize patient as tolerated. IMPRESSIONS: 1. Acute hypoxic respiratory failure secondary to COVID-19 The patient presented to the hospital with a protracted clinical course. The patient has completed treatment courses of both Decadron and antimicrobials. He remains on baricitinib and Lovenox. We will continue to diurese intermittently as labs allow. The patient does not appear to be significantly volume overloaded clinically. CTA chest showed no evidence for PE. Continue to wean supplemental oxygen to maintain saturations at or above 90%. Continue scheduled bronchodilators as ordered. Given protracted course, could consider LTAC evaluation, but defer to case management. The patient does have a possible fungus on sputum. Cannot exclude a secondary infection with Aspergillus. If aspergillus, recommend infectious disease consult and possible voriconazole. 2. Unvaccinated status/lack of PCP/advanced age/poor insight Complicates care, management, recovery and prognosis. Case management should initiate patient with a PCP on discharge. This note was generated with [employer] dictation software. It may contain incorrect words, spelling, and punctuation that were not noted in checking the note before signing. Subjective Subjective The patient was seen and examined at the bedside this morning. Events from the last 24 hours have been reviewed. The patient is currently documented to be overall net -8.6 L for the hospitalization. The patient remains on baricitinib, twice daily Lovenox, and scheduled bronchodilators. Objective Data Objective Data The patient's most recent lab work, culture data and imaging studies have all been personally reviewed. Coronavirus PCR was positive on September 30. MRSA screen was negative. Strep and urine Legionella antigens were negative. Vital Signs: Vital Signs Temp Pulse Resp BP Pulse Ox 97.9 F 108 H 16 119/71 94 10/16/21 03:00 10/16/21 03:00 10/16/21 03:00 10/16/21 03:00 10/16/21 05:00 Oxygen Flow Rate (L/min) 12 Oxygen Delivery Method Airvo Weight: 91.2 kg Body Mass Index (BMI) 30.1 Intake & Output: Intake and Output for Last 24 Hours 10/14/21 10/15/21 10/16/21 23:59 23:59 23:59 Intake Total 1000 / 1500 3190 / 3190 400 / 400 Output Total 875 / 1700 2024 / 2024 325 / 325 Balance 125 / -200 1165 / 1165 75 / 75 Lab / Micro Data Attestation: I reviewed the patient's lab results. Result Diagrams: 10/14/21 06:05 10/16/21 05:23 Labs: Laboratory Results - last 24 hr 10/16/21 05:23: Sodium 136, Potassium 3.6, Chloride 100, Carbon Dioxide 26.0, Anion Gap 10, BUN 29 H, Creatinine 0.73, Estim Creat Clear Calc 76.35, Est GFR (MDRD) Af Amer 138, Est GFR (MDRD) Non-Af 114, BUN/Creatinine Ratio 39.8 H, Glucose 106, Calcium 8.6 Micro: Microbiology 10/12/21 10:45 Sputum, Expectorated/Coughed Gram Stain - Final 10/12/21 10:45 Sputum, Expectorated/Coughed Respiratory Culture - Preliminary Possible Fungus 10/08/21 23:00 Interface Orders Streptococcus pneumoniae Antigen (M - Final 10/08/21 23:00 Interface Orders Legionella Antigen - Final 09/30/21 10:15 Blood Culture (Wb) - Right Hand Blood Culture - Final No growth in 5 days. 09/30/21 10:15 Blood Culture (Wb) - Anticubital Right Blood Culture - Final No growth in 5 days. 09/30/21 10:00 Nasal Secretion SARS-CoV-2 Antigen (Rapid) - Final Physical Exam Const alert and no apparent distress General Appearance: cooperative HEENT normocephalic and head/scalp atraumatic Eyes PERRL and EOMs intact bilaterally Neck supple General: trachea midline Chest inspection of chest normal Resp Auscultation: diminished lung sounds Cardio regular rate and regular rhythm GI normal to inspection, nondistended, normoactive bowel sounds Extremity no clubbing, cyanosis or edema Skin no rashes or lesions noted Neuro CN's II-XII intact bilaterally and no focal motor deficits Psych cooperative and affect normal Charges/Coding Visit Charges Inpatient E&M: 62998 Subs Hosp L2
[2021-10-16] MEDS: Ipratropium/Albuterol Sulfate 3 ML AMPUL.NEB INHALATION ×3 (07:18→19:49)
[2021-10-16] MEDS: Ascorbic Acid 500 MG Tablet 1000 MG PO ×2 (08:40→17:58)
--- NOTE | 2021-10-16 10:01 | EKG12_ITS ---
Test Reason : Blood Pressure : / mmHG Vent. Rate : 114 BPM Atrial Rate : 114 BPM P-R Int : 148 ms QRS Dur : 154 ms QT Int : 328 ms P-R-T Axes : 047 -10 162 degrees QTc Int : 452 ms Sinus tachycardia Left bundle branch block Abnormal ECG When compared with ECG of 30-SEP-2021 10:16, No significant change was found Confirmed by BRANDIN KINNEY, DAVION ([id number]), digital editor CHIDI KATZ ([id number]) on 10/20/2021 9:27:21 AM Referred By: KRYSTAL Confirmed By:DAVION GHOTRA MD
[2021-10-16] MEDS: guaiFENesin 1,200 MG Tablet 1200 MG PO ×2 (10:17→22:25)
[2021-10-16] MEDS: Enoxaparin 40 MG/0.4 ML Syringe SC ×2 (10:17→22:24)
--- NOTE | 2021-10-16 10:38 | CASEMGMT ---
Spoke with Rina at [facility], she is aware that pt O2 requirements are too high at this time. We will continue to follow. She states outside of the FiO2, pt appears appropriate.
--- NOTE | 2021-10-16 16:15 | PCM.PN.HOSP ---
Subjective Subjective No issues overnight. Patient has no complaints. She has toggled between air Vo and heated high flow nasal cannula. He tends to desat with coughing spells. Objective Data Objective Data Vital Signs: Vital Signs Temp Pulse Resp BP Pulse Ox 98.4 F 110 H 18 133/77 H 95 10/16/21 13:41 10/16/21 13:41 10/16/21 13:41 10/16/21 13:41 10/16/21 13:41 Oxygen Flow Rate (L/min) 60 Oxygen Delivery Method Airvo Weight: 91.2 kg Body Mass Index (BMI) 30.1 Intake & Output: Intake and Output for Last 24 Hours 10/14/21 10/15/21 10/16/21 23:59 23:59 23:59 Intake Total 1000 / 1500 3190 / 3190 400 / 400 Output Total 875 / 1700 2024 / 2024 325 / 325 Balance 125 / -200 1165 / 1165 75 / 75 Lab / Micro Data Result Diagrams: 10/14/21 06:05 10/16/21 05:23 Labs: Laboratory Results - last 24 hr 10/16/21 05:23: Sodium 136, Potassium 3.6, Chloride 100, Carbon Dioxide 26.0, Anion Gap 10, BUN 29 H, Creatinine 0.73, Estim Creat Clear Calc 76.35, Est GFR (MDRD) Af Amer 138, Est GFR (MDRD) Non-Af 114, BUN/Creatinine Ratio 39.8 H, Glucose 106, Calcium 8.6 Micro: Microbiology 10/12/21 10:45 Sputum, Expectorated/Coughed Gram Stain - Final 10/12/21 10:45 Sputum, Expectorated/Coughed Respiratory Culture - Preliminary Possible Fungus 10/08/21 23:00 Interface Orders Streptococcus pneumoniae Antigen (M - Final 10/08/21 23:00 Interface Orders Legionella Antigen - Final 09/30/21 10:15 Blood Culture (Wb) - Right Hand Blood Culture - Final No growth in 5 days. 09/30/21 10:15 Blood Culture (Wb) - Anticubital Right Blood Culture - Final No growth in 5 days. 09/30/21 10:00 Nasal Secretion SARS-CoV-2 Antigen (Rapid) - Final Physical Exam Const alert, oriented x3 and no apparent distress Constitutional Narrative: Slightly overweight white male sitting up in a bed, currently on heated high flow nasal cannula appears comfortable and nontoxic, watching television, nursing at the bedside General Appearance: cooperative, well kempt and well developed Orientation / Consciousness: awake, oriented to person, oriented to place and oriented to time Exam Limitations: no limitations Nutritional Appearance: overweight HEENT normocephalic, head/scalp atraumatic and moist oral mucous membranes HEENT Narrative: No thrush, Mallampati 2 Head and Scalp: normocephalic Neck nuchal rigidity and thyroid normal General: trachea midline Resp normal respiratory effort, no retractions, no use of accessory muscles and clear to auscultation bilaterally Resp Narrative: Diffusely diminished with continued bibasilar crackles Auscultation: crackles; Negative for rales, rhonchi or wheezes Cardio regular rate, regular rhythm, S1 normal heart sound, S2 normal heart sound, no murmurs, no rub, no gallops, no clicks and no JVD GI normal to inspection, nondistended, normoactive bowel sounds, soft to palpation, non-tender and non-distended; Negative for hepatosplenomegaly Extremity no clubbing, cyanosis or edema Extremity Narrative: Right lower extremity BKA Peripheral Pulses: Yes pulses 2+ throughout Skin General Skin Exam: no breakdown Neuro moves all extremities and no focal motor deficits Sensorium / Orientation: awake and alert Psych thought process normal Appearance: appropriate Assessment & Plan Assessment/Plan (1) Acute hypoxemic respiratory failure due to COVID-19: (2) COVID-19: (3) Leukocytosis: (4) Hyponatremia: PLAN: Acute hypoxic respiratory failure secondary to Covid 19 pneumonia -Has been on his little oxygen is 10 L heated high flow nasal cannula but is now back on air Vo at 72% with a flow of 60 L/min -Continue baricitinib dose 13 of 14 -Patient has completed Decadron -Completed a course of empiric Zosyn on 10/15/2021 -We will check CTA to rule out PE and reassess lung parenchyma -Patient did have a negative scan on 09/30/2021 -Encourage incentive spirometer and Pep therapy -Prone lying and mobility as able -Continue Lasix-patient is -8.5 L for the stay -Patient will not qualify for LTAC Leukocytosis -Sputum culture is showing possible fungus -Will await final to rule out Aspergillus--> still pending -Round of empiric Zosyn completed on 10/15/2021 -White count is relatively stable Deafness -Patient communicates well by reading lips or with writing information [id number] DVT prophylaxis -Continue Lovenox 40 twice daily CODE STATUS -No current CODE STATUS is in place we will need to further discuss with patient's family Charges/Coding Visit Charges Inpatient E&M: 67784 Subs Hosp L2
--- NOTE | 2021-10-16 16:18 | CT_ITS ---
ACR Level 3 findings have been noted. An addendum which confirms receipt of the report will follow. STUDY: CTA CHEST REASON FOR EXAM: Male, 66 years old. Hypoxia recent Covid RADIATION DOSAGE (If Supplied By Facility): CTDIvol = ( 8.47 ) mGy, DLP = ( 496.52 ) mGycm TECHNIQUE: The examination was performed with the intravenous administration of IV 100ML ISOVUE 370. Post-processing of the angiographic images was performed, with multiplanar reformation and 3D reconstruction. Individualized dose optimization techniques were used for this CT. COMPARISON: None. FINDINGS: There is no acute or chronic pulmonary embolism. Aorta is of normal caliber. There is extensive mediastinal emphysema and subcutaneous chest wall and neck emphysema. There is extensive diffuse lung pneumonia with cavitary necrotic lesion, presumed 3 cm right upper lobe abscess. There are no pleural effusions. There is extensive reactive inflammatory mediastinal lymph nodes. CT/CTA Chest W/WO Contrast IMPRESSION: 1. Extensive pneumonia mediastinum. 2. No pulmonary embolism. 3. Severe bilateral pneumonia. 4. Right upper lobe 3 cm abscess. Electronically Signed: Megan Guzman MD at 18:06 EST Tel , Service support ,
[2021-10-16] MEDS: Furosemide 40 MG/4 ML Vial IV (17:59)
[2021-10-16] MEDS: 0.9% Saline Lock 10 ML Syringe IV (17:59)
--- NOTE | 2021-10-16 18:28 | PCM.HOSP.N ---
Hospitalist Note CAT scan obtained as noted in previous documentation. CAT scan shows new pneumomediastinum as well as a right upper lobe cavitary lesion. The patient has been growing possible fungus on his sputum culture and given acute findings we will start voriconazole with loading dose then maintenance dose. Discussed findings with pulmonary critical care and they agreed with transfer and initiation of voriconazole. We will try to avoid intubation and mechanical ventilation as increased PEEP will cause worsening pneumomediastinum. He is maintaining oxygen saturations at 95 to 96% on air Vo at 60 L/min and FiO2 of 72%. We also going to try to avoid BiPAP as this will also make his pneumomediastinum worse.
[2021-10-17] VITALS (32 sets, daily range): BP systolic 97–133; BP diastolic 54–93; PULSE 63–130; RESP 14–32; TEMP 36.2–36.7; O2SAT 89–100
[2021-10-17 04:29] LABS: Anion Gap 4 (5-15); BUN 22 mg/dL (7-18); BUN/Creat Ratio 33.7 RATIO (10-20); Calcium,Total 8.5 mg/dL (8.5-10.1); Chloride 101 mmol/L (98-107); Creatinine, Serum 0.65 mg/dL (0.70-1.30); EST Glomerular Filtration Rate 130 mL/min (>60); Est Glom Filt Rate - Afr Amer 157 mL/min (>60); Estimated Creatinine Clearance 76.35 ml/min; Glucose 99 mg/dL (74-106); Potassium 3.6 mmol/L (3.5-5.1); Sodium Level 135 mmol/L (136-145)
[2021-10-17] MEDS: Ipratropium/Albuterol Sulfate 3 ML AMPUL.NEB INHALATION ×3 (07:05→19:05)
[2021-10-17] MEDS: Ascorbic Acid 500 MG Tablet 1000 MG PO ×2 (08:27→17:44)
[2021-10-17] MEDS: Enoxaparin 40 MG/0.4 ML Syringe SC ×2 (08:28→22:24)
[2021-10-17] MEDS: Polyethylene Glycol 3350 17 GM PACKET PO (08:29)
[2021-10-17] MEDS: guaiFENesin 1,200 MG Tablet 1200 MG PO ×2 (08:29→22:24)
[2021-10-17] MEDS: Furosemide 40 MG/4 ML Vial IV (08:29)
--- NOTE | 2021-10-17 08:50 | PCM.PN.INT ---
Assessment & Plan Assessment/Plan (1) COVID-19: (2) Acute hypoxemic respiratory failure due to COVID-19: PLAN: RECOMMENDATIONS: 1. Continue to wean supplemental oxygen to maintain saturations at or above 90%. Avoid positive pressure if possible 2. Complete baricitinib today (10/17/2021). Continue Lovenox. 3. Awake prone positioning was encouraged. 4. Encourage incentive spirometer use and mobilize patient as tolerated. 5. Agree with Vfend pending ID recommendations IMPRESSIONS: 1. Acute hypoxic respiratory failure secondary to COVID-19 The patient presented to the hospital with a protracted clinical course. The patient has completed treatment courses of both Decadron and antimicrobials. He remains on baricitinib and Lovenox. We will continue to diurese intermittently as labs allow. The patient does not appear to be significantly volume overloaded clinically. CTA chest showed no evidence for PE. Continue to wean supplemental oxygen to maintain saturations at or above 90%. Continue scheduled bronchodilators as ordered. Given protracted course, could consider LTAC evaluation, but defer to case management. Hospital course complicated by the development of pneumomediastinum. Would avoid positive pressure if possible. Vfend has been initiated. Some concern for aspergilloma given fungus on previous sputum. No hemoptysis has been reported. 2. Unvaccinated status/lack of PCP/advanced age/poor insight Complicates care, management, recovery and prognosis. Case management should initiate patient with a PCP on discharge. This note was generated with [employer] dictation software. It may contain incorrect words, spelling, and punctuation that were not noted in checking the note before signing. Subjective Subjective Patient with increasing shortness of breath yesterday leading to a CT scan of the chest. This showed a pneumomediastinum with a possible right upper lobe abscess. Patient was initiated on Vfend and transferred to the intensive care unit. Patient reports slightly worse subjective breathing today compared to yesterday. No nausea or vomiting is reported. Objective Data Objective Data Vital Signs: Vital Signs Temp Pulse Resp BP Pulse Ox 36.7 C 110 H 22 H 110/93 H 92 10/17/21 04:00 10/17/21 07:32 10/17/21 07:05 10/17/21 07:00 10/17/21 07:05 Oxygen Flow Rate (L/min) 60 Oxygen Delivery Method Airvo Weight: 89.9 kg Body Mass Index (BMI) 30.1 Intake & Output: Intake and Output for Last 24 Hours 10/15/21 10/16/21 10/17/21 23:59 23:59 23:59 Intake Total 3190 / 3190 400 / 400 540.02 / 540.02 Output Total 2024 745 / 745 240 / 240 Balance 1165 / 1165 -345 / -345 300.02 / 300.02 Lab / Micro Data Result Diagrams: 10/14/21 06:05 10/17/21 03:55 Labs: Laboratory Results - last 24 hr 10/17/21 03:55: Sodium 135 L, Potassium 3.6, Chloride 101, Carbon Dioxide 30.0, Anion Gap 4 L, BUN 22 H, Creatinine 0.65 L, Estim Creat Clear Calc 76.35, Est GFR (MDRD) Af Amer 157, Est GFR (MDRD) Non-Af 130, BUN/Creatinine Ratio 33.7 H, Glucose 99, Calcium 8.5 Micro: Microbiology 10/12/21 10:45 Sputum, Expectorated/Coughed Gram Stain - Final 10/12/21 10:45 Sputum, Expectorated/Coughed Respiratory Culture - Preliminary Possible Fungus 10/08/21 23:00 Interface Orders Streptococcus pneumoniae Antigen (M - Final 10/08/21 23:00 Interface Orders Legionella Antigen - Final 09/30/21 10:15 Blood Culture (Wb) - Right Hand Blood Culture - Final No growth in 5 days. 09/30/21 10:15 Blood Culture (Wb) - Anticubital Right Blood Culture - Final No growth in 5 days. 09/30/21 10:00 Nasal Secretion SARS-CoV-2 Antigen (Rapid) - Final Radiography Diagnostic Testing: Radiology Impression Chest CTA 10/16/21 16:18 IMPRESSION: 1. Extensive pneumonia mediastinum. 2. No pulmonary embolism. 3. Severe bilateral pneumonia. 4. Right upper lobe 3 cm abscess. Electronically Signed: Megan Guzman MD at 18:06 EST Tel , Service support , ADDENDUM: 10/16/21 6259 IMPRESSION: 1. Extensive pneumonia mediastinum. 2. No pulmonary embolism. 3. Severe bilateral pneumonia. 4. Right upper lobe 3 cm abscess. N.B. : MCKENZIE Plascencia, confirmed on 10/16/2021 18:17:06 (ET) that the healthcare facility has received the radiology report. Electronically Signed: Megan Guzman MD at 18:06 EST Tel , Service support , ADDENDUM: 10/16/21 1833 IMPRESSION: 1. Extensive pneumonia mediastinum. 2. No pulmonary embolism. 3. Severe bilateral pneumonia. 4. Right upper lobe 3 cm abscess. N.B. : MCKENZIE Plascencia, confirmed on 10/16/2021 18:17:06 (ET) that the healthcare facility has received the radiology report. Electronically Signed: Megan Guzman MD at 18:06 EST Tel , Service support , Physical Exam Const alert and no apparent distress Constitutional Narrative: Sitting in the chair with heated high flow cannula in place. General Appearance: cooperative HEENT normocephalic and head/scalp atraumatic Eyes PERRL, EOMs intact bilaterally and conjunctivae normal Neck supple General: trachea midline Chest inspection of chest normal Chest: symmetrical chest wall rise and crepitus clavicle right Resp Effort and Inspection: symmetric chest movement and tachypneic Auscultation: diminished lung sounds; Negative for rales, rhonchi or wheezes Cardio regular rhythm, no murmurs, no rub and no gallops Rate: tachycardic GI normal to inspection, nondistended, normoactive bowel sounds Extremity no clubbing, cyanosis or edema Extremity Narrative: Right BKA Skin no rashes or lesions noted Neuro CN's II-XII intact bilaterally and no focal motor deficits Psych cooperative and affect normal Charges/Coding Visit Charges Inpatient E&M: 91007 Subs Hosp L3
--- NOTE | 2021-10-17 11:57 | PCM.PN.HOSP ---
Subjective Subjective Patient was transferred as per documentation to the ICU secondary to the development of pneumomediastinum. Patient has remained stable on air Vo through the night. CODE STATUS was discussed with him and he would like to remain full code. He has no complaints at this time. Objective Data Objective Data Vital Signs: Vital Signs Temp Pulse Resp BP Pulse Ox 98.1 F 114 H 20 H 104/71 89 10/17/21 04:00 10/17/21 11:41 10/17/21 11:41 10/17/21 11:00 10/17/21 11:41 Oxygen Flow Rate (L/min) 50 Oxygen Delivery Method Airvo Weight: 89.9 kg Body Mass Index (BMI) 30.1 Intake & Output: Intake and Output for Last 24 Hours 10/15/21 10/16/21 10/17/21 23:59 23:59 23:59 Intake Total 3190 / 3190 400 / 400 540.02 / 540.02 Output Total 5 / 2024 745 / 745 240 / 240 Balance 1165 / 1165 -345 / -345 300.02 / 300.02 Lab / Micro Data Result Diagrams: 10/14/21 06:05 10/17/21 03:55 Labs: Laboratory Results - last 24 hr 10/17/21 03:55: Sodium 135 L, Potassium 3.6, Chloride 101, Carbon Dioxide 30.0, Anion Gap 4 L, BUN 22 H, Creatinine 0.65 L, Estim Creat Clear Calc 76.35, Est GFR (MDRD) Af Amer 157, Est GFR (MDRD) Non-Af 130, BUN/Creatinine Ratio 33.7 H, Glucose 99, Calcium 8.5 Micro: Microbiology 10/12/21 10:45 Sputum, Expectorated/Coughed Gram Stain - Final 10/12/21 10:45 Sputum, Expectorated/Coughed Respiratory Culture - Preliminary Possible Fungus 10/08/21 23:00 Interface Orders Streptococcus pneumoniae Antigen (M - Final 10/08/21 23:00 Interface Orders Legionella Antigen - Final 09/30/21 10:15 Blood Culture (Wb) - Right Hand Blood Culture - Final No growth in 5 days. 09/30/21 10:15 Blood Culture (Wb) - Anticubital Right Blood Culture - Final No growth in 5 days. 09/30/21 10:00 Nasal Secretion SARS-CoV-2 Antigen (Rapid) - Final Radiography Diagnostic Testing: Radiology Impression Chest CTA 10/16/21 16:18 IMPRESSION: 1. Extensive pneumonia mediastinum. 2. No pulmonary embolism. 3. Severe bilateral pneumonia. 4. Right upper lobe 3 cm abscess. Electronically Signed: Megan Guzman MD at 18:06 EST Tel , Service support , ADDENDUM: 10/16/21 1824 IMPRESSION: 1. Extensive pneumonia mediastinum. 2. No pulmonary embolism. 3. Severe bilateral pneumonia. 4. Right upper lobe 3 cm abscess. N.B. : MCKENZIE Plascencia, confirmed on 10/16/2021 18:17:06 (ET) that the healthcare facility has received the radiology report. Electronically Signed: Megan Guzman MD at 18:06 EST Tel , Service support , ADDENDUM: 10/16/21 1833 IMPRESSION: 1. Extensive pneumonia mediastinum. 2. No pulmonary embolism. 3. Severe bilateral pneumonia. 4. Right upper lobe 3 cm abscess. N.B. : MCKENZIE Plascencia, confirmed on 10/16/2021 18:17:06 (ET) that the healthcare facility has received the radiology report. Electronically Signed: Megan Guzman MD at 18:06 EST Tel , Service support , Physical Exam Narrative Const alert, oriented x3 and no apparent distress Constitutional Narrative: Slightly overweight white male sitting up in a bed, currently on heated high flow nasal cannula appears comfortable and nontoxic, watching television General Appearance: cooperative, well kempt and well developed Orientation / Consciousness: awake, oriented to person, oriented to place and oriented to time Exam Limitations: no limitations Nutritional Appearance: overweight HEENT normocephalic, head/scalp atraumatic and moist oral mucous membranes Head and Scalp: normocephalic Neck nuchal rigidity and thyroid normal General: trachea midline Resp normal respiratory effort, no retractions, no use of accessory muscles and clear to auscultation bilaterally Resp Narrative: Diffusely diminished with continued course bibasilar crackles that extend up into the mid lung garcia Auscultation: crackles; Negative for rales, rhonchi or wheezes Cardio regular rhythm, S1 normal heart sound, S2 normal heart sound, no murmurs, no rub, no gallops, no clicks and no JVD Cardio Narrative: Mild tachycardia GI normal to inspection, nondistended, normoactive bowel sounds, soft to palpation, non-tender and non-distended; Negative for hepatosplenomegaly Extremity no clubbing, cyanosis or edema Extremity Narrative: Right lower extremity BKA Skin no rashes or lesions noted Skin Narrative: Subcutaneous air noted in the lateral and posterior neck as well as mildly in the anterior chest wall more on the right than the left General Skin Exam: no breakdown Neuro moves all extremities and no focal motor deficits Sensorium / Orientation: awake and alert Psych thought process normal Appearance: appropriate Assessment & Plan Assessment/Plan (1) Acute hypoxemic respiratory failure due to COVID-19: (2) COVID-19: (3) Leukocytosis: (4) Hyponatremia: (5) Lung abscess: (6) Pneumomediastinum: PLAN: Acute hypoxic respiratory failure secondary to Covid 19 pneumonia -Has been on his little oxygen is 10 L heated high flow nasal cannula but is now back on air Vo at 72% with a flow of 60 L/min -Continue baricitinib dose 14 of 14 -Patient has completed Decadron -Completed a course of empiric Zosyn on 10/15/2021 -Repeat CTA chest done on 10/16/2021 with extensive pneumomediastinum, no PE, severe bilateral diffuse pneumonia and a right upper lobe 3 cm abscess that is concerning for aspergilloma given culture findings -Patient was transferred to the ICU upon receiving these findings and started on voriconazole -Encourage incentive spirometer and Pep therapy -Prone lying and mobility as able -Continue daily Lasix IV push -patient is -8.75 L for the stay -We will closely monitor renal function Pneumomediastinum -This was a new finding on CAT scan that was performed yesterday afternoon -Avoid positive pressure as much as possible and thus far patient is stable on heated high flow Right upper lobe 3 cm lung abscess -Sputum culture is showing possible fungus -Will await final to rule out Aspergillus--> still pending but with worsening respiratory status and abnormal CAT scan findings with concern for aspergilloma voriconazole was initiated -Await ID input on Tuesday -Round of empiric Zosyn completed on 10/15/2021 -White count is relatively stable -Pulmonary medicine is following Deafness -Patient communicates well by reading lips or with writing information [id number] DVT prophylaxis -Continue Lovenox 40 twice daily CODE STATUS -No current CODE STATUS is in place we will need to further discuss with patient's family Charges/Coding Visit Charges Inpatient E&M: 09185 Subs Hosp L2
[2021-10-18] VITALS (34 sets, daily range): BP systolic 92–135; BP diastolic 7–84; PULSE 89–124; RESP 19–34; TEMP 36.5–36.9; O2SAT 88–98
[2021-10-18 02:20] LABS: Anion Gap 9 (5-15); BUN 18 mg/dL (7-18); BUN/Creat Ratio 23.4 RATIO (10-20); Calcium,Total 8.6 mg/dL (8.5-10.1); Chloride 100 mmol/L (98-107); Creatinine, Serum 0.77 mg/dL (0.70-1.30); EST Glomerular Filtration Rate 107 mL/min (>60); Est Glom Filt Rate - Afr Amer 130 mL/min (>60); Estimated Creatinine Clearance 76.35 ml/min; Glucose 109 mg/dL (74-106); Potassium 3.3 mmol/L (3.5-5.1); Sodium Level 136 mmol/L (136-145)
[2021-10-18] MEDS: Ipratropium/Albuterol Sulfate 3 ML AMPUL.NEB INHALATION ×3 (07:31→19:55)
--- NOTE | 2021-10-18 08:28 | PCM.PN.INT ---
Assessment & Plan Assessment/Plan (1) COVID-19: (2) Acute hypoxemic respiratory failure due to COVID-19: PLAN: RECOMMENDATIONS: 1. Continue to wean supplemental oxygen to maintain saturations at or above 90%. Avoid positive pressure if possible 2. Completed baricitinib. Continue Lovenox. 3. Awake prone positioning was encouraged. 4. Encourage incentive spirometer use and mobilize patient as tolerated. 5. Agree with Vfend pending ID recommendations 6. Recheck labs tomorrow to see if leukocytosis improving IMPRESSIONS: 1. Acute hypoxic respiratory failure secondary to COVID-19 The patient presented to the hospital with a protracted clinical course. The patient has completed treatment courses of both Decadron and antimicrobials. He remains on baricitinib and Lovenox. We will continue to diurese intermittently as labs allow. The patient does not appear to be significantly volume overloaded clinically. CTA chest showed no evidence for PE. Continue to wean supplemental oxygen to maintain saturations at or above 90%. Continue scheduled bronchodilators as ordered. Given protracted course, could consider LTAC evaluation, but defer to case management. Hospital course complicated by the development of pneumomediastinum. Would avoid positive pressure if possible. If patient does require BiPAP, codeine would be appropriate. Vfend has been initiated. Some concern for aspergilloma given fungus on previous sputum. No hemoptysis has been reported. If oxygenation improves, could consider bronchoscopy with BAL 2. Unvaccinated status/lack of PCP/advanced age/poor insight Complicates care, management, recovery and prognosis. Case management should initiate patient with a PCP on discharge. This note was generated with [employer] dictation software. It may contain incorrect words, spelling, and punctuation that were not noted in checking the note before signing. Subjective Subjective Patient did okay overnight. Patient remains on Airvo most of the time to maintain saturations. Patient also is having significant cough. No worsening in subcutaneous emphysema per nursing overnight. Patient is not reporting any increase in chest pain. Objective Data Objective Data Vital Signs: Vital Signs Temp Pulse Resp BP Pulse Ox 36.7 C 96 20 H 129/65 H 92 10/18/21 04:00 10/18/21 07:37 10/18/21 07:31 10/18/21 07:00 10/18/21 07:31 Oxygen Flow Rate (L/min) 60 Oxygen Delivery Method Airvo Weight: 89.7 kg Body Mass Index (BMI) 30.1 Intake & Output: Intake and Output for Last 24 Hours 10/16/21 10/17/21 10/18/21 23:59 23:59 23:59 Intake Total 400 / 400 1325.02 / 1325.02 886 / 886 Output Total 745 / 745 765 / 765 430 / 430 Balance -345 / -345 560.02 / 560.02 456 / 456 Lab / Micro Data Result Diagrams: 10/14/21 06:05 10/18/21 01:45 Labs: Laboratory Results - last 24 hr 10/18/21 01:45: Sodium 136, Potassium 3.3 L, Chloride 100, Carbon Dioxide 27.0, Anion Gap 9, BUN 18, Creatinine 0.77, Estim Creat Clear Calc 76.35, Est GFR (MDRD) Af Amer 130, Est GFR (MDRD) Non-Af 107, BUN/Creatinine Ratio 23.4 H, Glucose 109 H, Calcium 8.6 Micro: Microbiology 10/12/21 10:45 Sputum, Expectorated/Coughed Gram Stain - Final 10/12/21 10:45 Sputum, Expectorated/Coughed Respiratory Culture - Preliminary Possible Fungus 10/08/21 23:00 Interface Orders Streptococcus pneumoniae Antigen (M - Final 10/08/21 23:00 Interface Orders Legionella Antigen - Final 09/30/21 10:15 Blood Culture (Wb) - Right Hand Blood Culture - Final No growth in 5 days. 09/30/21 10:15 Blood Culture (Wb) - Anticubital Right Blood Culture - Final No growth in 5 days. 09/30/21 10:00 Nasal Secretion SARS-CoV-2 Antigen (Rapid) - Final Physical Exam Const alert and no apparent distress Constitutional Narrative: Sitting in the bed with heated high flow cannula in place. General Appearance: cooperative HEENT normocephalic and head/scalp atraumatic Eyes PERRL, EOMs intact bilaterally and conjunctivae normal Neck supple General: trachea midline Chest inspection of chest normal Chest: symmetrical chest wall rise and crepitus clavicle right Resp Effort and Inspection: symmetric chest movement and tachypneic Auscultation: diminished lung sounds; Negative for rales, rhonchi or wheezes Cardio regular rhythm, no murmurs, no rub and no gallops Rate: tachycardic GI normal to inspection, nondistended, normoactive bowel sounds Extremity no clubbing, cyanosis or edema Extremity Narrative: Right BKA Skin no rashes or lesions noted Neuro CN's II-XII intact bilaterally and no focal motor deficits Psych cooperative and affect normal Charges/Coding Visit Charges Inpatient E&M: 54327 Subs Hosp L3
[2021-10-18] MEDS: guaiFENesin 1,200 MG Tablet 1200 MG PO ×2 (09:01→21:53)
[2021-10-18] MEDS: Potassium Chloride Oral Tablet 20 MEQ 40 MEQ PO (09:02)
[2021-10-18] MEDS: Furosemide 40 MG/4 ML Vial IV (09:03)
[2021-10-18] MEDS: Ascorbic Acid 500 MG Tablet 1000 MG PO ×2 (09:03→16:33)
[2021-10-18] MEDS: Enoxaparin 40 MG/0.4 ML Syringe SC ×2 (09:03→21:53)
--- NOTE | 2021-10-18 13:33 | PN.HOSP_ITS ---
Subjective Subjective Patient reports that he is feeling about the same. He still is having some intermittent coughing and able to bring up sputum. Denies any pain or increased shortness of breath. No overnight issues. Objective Data Objective Data Vital Signs: Vital Signs Temp Pulse Resp BP Pulse Ox 98.4 F 115 H 22 H 106/69 90 10/18/21 08:00 10/18/21 11:58 10/18/21 08:00 10/18/21 08:00 10/18/21 11:58 Oxygen Flow Rate (L/min) 60 Oxygen Delivery Method Airvo Weight: 89.7 kg Body Mass Index (BMI) 30.1 Intake & Output: Intake and Output for Last 24 Hours 10/16/21 10/17/21 10/18/21 23:59 23:59 23:59 Intake Total 400 / 400 1325.02 / 1325.02 1172 / 1172 Output Total 745 / 745 765 / 765 430 / 430 Balance -345 / -345 560.02 / 560.02 742 / 742 Lab / Micro Data Result Diagrams: 10/14/21 06:05 10/18/21 01:45 Labs: Laboratory Results - last 24 hr 10/18/21 01:45: Sodium 136, Potassium 3.3 L, Chloride 100, Carbon Dioxide 27.0, Anion Gap 9, BUN 18, Creatinine 0.77, Estim Creat Clear Calc 76.35, Est GFR (MDRD) Af Amer 130, Est GFR (MDRD) Non-Af 107, BUN/Creatinine Ratio 23.4 H, Glucose 109 H, Calcium 8.6 Micro: Microbiology 10/12/21 10:45 Sputum, Expectorated/Coughed Gram Stain - Final 10/12/21 10:45 Sputum, Expectorated/Coughed Respiratory Culture - Prelimi nary Possible Fungus 10/08/21 23:00 Interface Orders Streptococcus pneumoniae Antigen (M - Final 10/08/21 23:00 Interface Orders Legionella Antigen - Final 09/30/21 10:15 Blood Culture (Wb) - Right Hand Blood Culture - Final No growth in 5 days. 09/30/21 10:15 Blood Culture (Wb) - Anticubital Right Blood Culture - Final No growth in 5 days. 09/30/21 10:00 Nasal Secretion SARS-CoV-2 Antigen (Rapid) - Final Physical Exam Narrative Const alert, oriented x3 and no apparent distress Constitutional Narrative: Slightly overweight white male sitting up in a bed, currently on heated high flow nasal cannula appears comfortable and nontoxic, watching television General Appearance: cooperative, well kempt and well developed Orientation / Consciousness: awake, oriented to person, oriented to place and oriented to time Exam Limitations: no limitations Nutritional Appearance: overweight HEENT normocephalic, head/scalp atraumatic and moist oral mucous membranes HEENT Narrative: Mallampati 2, no thrush Head and Scalp: normocephalic Neck nuchal rigidity and thyroid normal General: trachea midline Resp normal respiratory effort, no retractions, no use of accessory muscles and clear to auscultation bilaterally Resp Narrative: Diffusely diminished with continued bibasilar crackles that extend up into the mid lung garcia but somewhat improved the last 24 hours Auscultation: crackles; Negative for rales, rhonchi or wheezes Cardio regular rhythm, S1 normal heart sound, S2 normal heart sound, no murmurs, no rub, no gallops, no clicks and no JVD Cardio Narrative: Mild tachycardia GI normal to inspection, nondistended, normoactive bowel sounds, soft to palpation, non-tender and non-distended; Negative for hepatosplenomegaly Extremity no clubbing, cyanosis or edema Extremity Narrative: Right lower extremity BKA Peripheral Pulses: Yes pulses 2+ throughout Skin Skin Narrative: Subcutaneous air noted in the lateral and posterior neck as well as mildly in the anterior chest wall more on the right than the left-this has improved in the last 24 hours General Skin Exam: no breakdown Neuro moves all extremities and no focal motor deficits Neuro Narrative: Patient is deaf at baseline Sensorium / Orientation: awake and alert Psych thought process normal and affect normal Appearance: appropriate Assessment & Plan Assessment/Plan (1) Acute hypoxemic respiratory failure due to COVID-19: (2) COVID-19: (3) Leukocytosis: (4) Hyponatremia: (5) Lung abscess: (6) Pneumomediastinum: PLAN: Acute hypoxic respiratory failure secondary to Covid 19 pneumonia -Has been on his little oxygen is 10 L heated high flow nasal cannula but is now back on air Vo at 85% with a flow of 60 L/min -Sats are 90 to 92% -Patient has completed Decadron, remdesivir, and baricitinib -Completed a course of empiric Zosyn on 10/15/2021 -Repeat CTA chest done on 10/16/2021 with extensive pneumomediastinum, no PE, severe bilateral diffuse pneumonia and a right upper lobe 3 cm abscess that is concerning for aspergilloma given culture findings -Patient was transferred to the ICU upon receiving these findings and started on voriconazole -Encourage incentive spirometer and Pep therapy -Prone lying and mobility as able -Continue daily Lasix IV push -patient is - 7.75 L for the stay - monitor renal function -Prognosis is guarded at this time even Covid/abscess/pneumomediastinum Pneumomediastinum -This was a new finding on CAT scan that was performed yesterday afternoon -Avoid positive pressure as much as possible and thus far patient is stable on heated high flow Right upper lobe 3 cm lung abscess -Sputum culture is still showing possible fungus but identification is pending -Will await final to rule out Aspergillus--> still pending but with worsening respiratory status and abnormal CAT scan findings with concern for aspergilloma voriconazole was initiated -Await ID input on Tuesday -Round of empiric Zosyn completed on 10/15/2021 -White count is relatively stable -Pulmonary medicine is following Hypokalemia -P.o. potassium replacement with 40 mEq -Repeat in a.m. -If remains low check magnesium level Deafness -Patient communicates well by reading lips or with writing information [id number] DVT prophylaxis -Continue Lovenox 40 twice daily CODE STATUS -Full code Charges/Coding Visit Charges Inpatient E&M: 46374 Subs Hosp L2
[2021-10-18] MEDS: Oxymetazoline 0.05% 1 SPRAY SPRAY.BTL NASAL (21:59)
[2021-10-18] MEDS: Acetaminophen 325 MG Tablet 650 MG PO (22:03)
[2021-10-19] VITALS (33 sets, daily range): BP systolic 91–145; BP diastolic 63–86; PULSE 83–129; RESP 18–40; TEMP 36.7–37.1; O2SAT 88–97
[2021-10-19 03:41] LABS: Absolute Lymphocyte Count 0.62 X10^3/uL (0.83-4.51); Absolute Neutrophil Count 12.8 X10^3/uL (2.0-7.7); Basophil# 0.03 X10^3/uL; Basophil% 0.2 % (0-1); Eosinophil# 0.36 X10^3/uL; Eosinophils% 2.6 % (0-5); Hematocrit 35.7 % (40-54); Lymphocyte # 0.62 X10^3/ul (0.83-4.51); Lymphocyte % 4.4 % (19-41); Mean Corp Hgb Conc 33.6 g/dL (32-36); Mean Corpuscular Hgb 29.9 pg (27.0-32.0); Mean Platelet Vol. 10.8 fl (6.2-12.0); Monocyte# 0.25 X10^3/uL; Monocyte% 1.8 % (0-10); NRBC Flagged by Analyzer 0 % (0-5); Neutrophil # 12.76 X10^3/uL (2.7-7.7); Neutrophil % 90.4 % (47-70); Platelet Count 374 K/mm3 (150-450); RBC Distribution Width CV 13.8 % (11.6-14.6); RBC Distribution Width SD 44.7 fl (35.1-43.9); Red Blood Count 4.01 M/mm3 (4.6-6.2); White Blood Count 14.1 K/mm3 (4.4-11.0)
[2021-10-19 04:11] LABS: Anion Gap 7 (5-15); BUN 17 mg/dL (7-18); BUN/Creat Ratio 23.3 RATIO (10-20); Calcium,Total 8.8 mg/dL (8.5-10.1); Chloride 103 mmol/L (98-107); Creatinine, Serum 0.73 mg/dL (0.70-1.30); EST Glomerular Filtration Rate 114 mL/min (>60); Est Glom Filt Rate - Afr Amer 138 mL/min (>60); Estimated Creatinine Clearance 76.35 ml/min; Glucose 112 mg/dL (74-106); Potassium 3.5 mmol/L (3.5-5.1); Sodium Level 138 mmol/L (136-145)
[2021-10-19] MEDS: Ipratropium/Albuterol Sulfate 3 ML AMPUL.NEB INHALATION ×3 (06:40→18:50)
--- NOTE | 2021-10-19 06:44 | RAD_ITS ---
STUDY: X-RAY CHEST REASON FOR EXAM: Male, 66 years old. Hypoxia TECHNIQUE: Single AP portable view of the chest. COMPARISON: Comparison is made with prior examination dated 09/30/2021. FINDINGS: EKG electrodes are seen. Since prior study, there has been a progression of the bilateral pulmonary infiltrates worse in the right hemithorax. There is blunting of both costophrenic angles. Normal size heart. Normal mediastinum and tamela. Normal visualized pulmonary arteries. There is atherosclerotic calcification of the aortic arch with tortuosity. Normal visualized thoracic spine. Normal visualized ribs, clavicles, and shoulders. There is no demonstrated abnormality of the visualized soft tissue structures of the upper abdomen. RAD/Chest 1 View (Portable) IMPRESSION: Since prior study, there has been a progression of bilateral pulmonary infiltrates worse in the right hemithorax. Blunting of both costophrenic angles. Electronically Signed: Jayesh Rivera MD at 12:56 EST , Service support ,
--- NOTE | 2021-10-19 06:44 | PCM.PN.INT ---
Assessment & Plan Assessment/Plan (1) COVID-19: (2) Acute hypoxemic respiratory failure due to COVID-19: PLAN: RECOMMENDATIONS: 1. Continue to wean supplemental oxygen to maintain saturations at or above 90%. Avoid positive pressure if possible 2. Completed baricitinib. Continue Lovenox. 3. Awake prone positioning was encouraged. 4. Encourage incentive spirometer use and mobilize patient as tolerated. 5. Agree with Vfend pending ID recommendations. Defer to ID on empiric antibiotics 6. Recheck chest x-ray given persistent leukocytosis. Panculture with fever IMPRESSIONS: 1. Acute hypoxic respiratory failure secondary to COVID-19 The patient presented to the hospital with a protracted clinical course. The patient has completed treatment courses of both Decadron and antimicrobials. He remains on baricitinib and Lovenox. We will continue to diurese intermittently as labs allow. The patient does not appear to be significantly volume overloaded clinically. CTA chest showed no evidence for PE. Continue to wean supplemental oxygen to maintain saturations at or above 90%. Continue scheduled bronchodilators as ordered. Given protracted course, could consider LTAC evaluation, but defer to case management. Hospital course complicated by the development of pneumomediastinum. Would avoid positive pressure if possible. If patient does require BiPAP, codeine would be appropriate. Vfend has been initiated. Some concern for aspergilloma given fungus on previous sputum. No hemoptysis has been reported. If bronchoscopy is needed, patient would have to agree to intubation given current FiO2 requirements. This may exacerbate pneumomediastinum. Chest x-ray has been ordered. 2. Unvaccinated status/lack of PCP/advanced age/poor insight Complicates care, management, recovery and prognosis. Case management should initiate patient with a PCP on discharge. This note was generated with [employer] dictation software. It may contain incorrect words, spelling, and punctuation that were not noted in checking the note before signing. Subjective Subjective Patient did okay overnight. Patient continues to have a strong cough throughout the day with mild production. No hemoptysis is been reported. Objective Data Objective Data Vital Signs: Vital Signs Temp Pulse Resp BP Pulse Ox 36.8 C 97 18 115/70 94 10/19/21 04:00 10/19/21 06:00 10/19/21 06:00 10/19/21 06:00 10/19/21 06:00 Oxygen Flow Rate (L/min) 50 Oxygen Delivery Method Airvo Weight: 84.9 kg Body Mass Index (BMI) 30.1 Intake & Output: Intake and Output for Last 24 Hours 10/17/21 10/18/21 10/19/21 23:59 23:59 23:59 Intake Total 1325.02 / 1325.02 1772 / 1772 286 / 286 Output Total 765 / 765 1025 / 1025 Balance 560.02 / 560.02 747 / 747 286 / 286 Lab / Micro Data Result Diagrams: 10/19/21 03:20 10/19/21 03:20 Labs: Laboratory Results - last 24 hr 10/19/21 03:20: Sodium 138, Potassium 3.5, Chloride 103, Carbon Dioxide 28.0, Anion Gap 7, BUN 17, Creatinine 0.73, Estim Creat Clear Calc 76.35, Est GFR (MDRD) Af Amer 138, Est GFR (MDRD) Non-Af 114, BUN/Creatinine Ratio 23.3 H, Glucose 112 H, Calcium 8.8 10/19/21 03:20: WBC 14.1 H, RBC 4.01 L, Hgb 12.0 L, Hct 35.7 L, MCV 89.0, MCH 29.9, MCHC 33.6, RDW Std Deviation 44.7 H, RDW Coeff of [place] 13.8, Plt Count 374, MPV 10.8, Immature Gran % (Auto) 0.600, Neut % (Auto) 90.4 H, Lymph % (Auto) 4.4 L, [place] % (Auto) 1.8, Eos % (Auto) 2.6, Baso % (Auto) 0.2, Absolute Neuts (auto) 12.8 H, Absolute Lymphs (auto) 0.62 L, Nucleated RBC % 0 Micro: Microbiology 10/12/21 10:45 Sputum, Expectorated/Coughed Gram Stain - Final 10/12/21 10:45 Sputum, Expectorated/Coughed Respiratory Culture - Preliminary Possible Fungus 10/08/21 23:00 Interface Orders Streptococcus pneumoniae Antigen (M - Final 10/08/21 23:00 Interface Orders Legionella Antigen - Final 09/30/21 10:15 Blood Culture (Wb) - Right Hand Blood Culture - Final No growth in 5 days. 09/30/21 10:15 Blood Culture (Wb) - Anticubital Right Blood Culture - Final No growth in 5 days. 09/30/21 10:00 Nasal Secretion SARS-CoV-2 Antigen (Rapid) - Final Physical Exam Const alert and no apparent distress Constitutional Narrative: Sitting in the bed with heated high flow cannula in place. General Appearance: cooperative HEENT normocephalic and head/scalp atraumatic Eyes PERRL, EOMs intact bilaterally and conjunctivae normal Neck supple General: trachea midline Chest inspection of chest normal Chest Narrative: Crepitus appears to be improving Chest: symmetrical chest wall rise and crepitus clavicle right Resp Effort and Inspection: symmetric chest movement and tachypneic Auscultation: diminished lung sounds; Negative for rales, rhonchi or wheezes Cardio regular rhythm, no murmurs, no rub and no gallops Rate: tachycardic GI normal to inspection, nondistended, normoactive bowel sounds Extremity no clubbing, cyanosis or edema Extremity Narrative: Right BKA Skin no rashes or lesions noted Neuro CN's II-XII intact bilaterally and no focal motor deficits Psych cooperative and affect normal Charges/Coding Visit Charges Inpatient E&M: 44599 Subs Hosp L3
--- NOTE | 2021-10-19 07:53 | PCM.PN.HOSP ---
Subjective Subjective Patient seen remains on supplemental oxygen Objective Data Objective Data Vital Signs: Vital Signs Temp Pulse Resp BP Pulse Ox 98.2 F 110 H 24 H 122/67 H 94 10/19/21 04:00 10/19/21 07:00 10/19/21 07:00 10/19/21 07:00 10/19/21 07:00 Oxygen Flow Rate (L/min) 60 Oxygen Delivery Method Airvo Weight: 84.9 kg Body Mass Index (BMI) 30.1 Intake & Output: Intake and Output for Last 24 Hours 10/17/21 10/18/21 10/19/21 23:59 23:59 23:59 Intake Total 1325.02 / 1325.02 1772 / 1772 286 / 286 Output Total 765 / 765 1025 / 1025 Balance 560.02 / 560.02 747 / 747 286 / 286 Lab / Micro Data Result Diagrams: 10/19/21 03:20 10/19/21 03:20 Labs: Laboratory Results - last 24 hr 10/19/21 03:20: Sodium 138, Potassium 3.5, Chloride 103, Carbon Dioxide 28.0, Anion Gap 7, BUN 17, Creatinine 0.73, Estim Creat Clear Calc 76.35, Est GFR (MDRD) Af Amer 138, Est GFR (MDRD) Non-Af 114, BUN/Creatinine Ratio 23.3 H, Glucose 112 H, Calcium 8.8 10/19/21 03:20: WBC 14.1 H, RBC 4.01 L, Hgb 12.0 L, Hct 35.7 L, MCV 89.0, MCH 29.9, MCHC 33.6, RDW Std Deviation 44.7 H, RDW Coeff of [place] 13.8, Plt Count 374, MPV 10.8, Immature Gran % (Auto) 0.600, Neut % (Auto) 90.4 H, Lymph % (Auto) 4.4 L, [place] % (Auto) 1.8, Eos % (Auto) 2.6, Baso % (Auto) 0.2, Absolute Neuts (auto) 12.8 H, Absolute Lymphs (auto) 0.62 L, Nucleated RBC % 0 Micro: Microbiology 10/12/21 10:45 Sputum, Expectorated/Coughed Gram Stain - Final 10/12/21 10:45 Sputum, Expectorated/Coughed Respiratory Culture - Preliminary Possible Fungus 10/08/21 23:00 Interface Orders Streptococcus pneumoniae Antigen (M - Final 10/08/21 23:00 Interface Orders Legionella Antigen - Final 09/30/21 10:15 Blood Culture (Wb) - Right Hand Blood Culture - Final No growth in 5 days. 09/30/21 10:15 Blood Culture (Wb) - Anticubital Right Blood Culture - Final No growth in 5 days. 09/30/21 10:00 Nasal Secretion SARS-CoV-2 Antigen (Rapid) - Final Physical Exam Narrative GENERAL: cooperative but dyspneic at rest HEENT: Atraumatic; EYES; Anicteric, Normal Conjunctiva NECK; supple, normal thyroid, RESPIRATORY: Diminished to auscultation CARDIOVASCULAR: Regular S1 S2, GI: soft, normoactive bowel sounds, : No Renal angle tenderness; EXTREMITIES: No edema, no clubbing, MUSCULOSKELETAL: no muscle waisting NEURO: Awake; no lateralizing signs. SKIN: No Rash PSYCH; Flat affect Assessment & Plan Assessment/Plan (1) Acute hypoxemic respiratory failure due to COVID-19: (2) COVID-19: (3) Leukocytosis: (4) Hyponatremia: (5) Lung abscess: (6) Pneumomediastinum: PLAN: Patient is a 66-year-old gentleman admitted with acute hypoxic respiratory failure secondary to COVID-19. Patient has had a protracted course. Completed treatment with steroids, remdesivir and baricitinib. Patient hospital stay complicated by suspected fungal pneumonia and is on voriconazole 1. Acute hypoxic respiratory failure ?Secondary to SARS-CoV-2 pneumonia. Patient completed a course of Decadron remdesivir and baricitinib. Patient hospital stay complicated by suspected fungal pneumonia and pneumomediastinum 2. Right upper lobe 3 cm lung abscess . Patient was treated with Zosyn sputum cultures however came back positive for fungus with high suspicion for possible aspergillus in view of patient having received baricitinib. Patient was started on voriconazole infectious disease following 3. Pneumomediastinum ?Complication of patient COVID-19. Plan is to avoid positive pressure ventilation as much as possible 4. Hypokalemia -Corrected per protocol 5. Deafness Patient is able to read lips and communicates by writing 6. DVT prophylaxis ?Lovenox CODE STATUS -Full code Charges/Coding Visit Charges Inpatient E&M: 36366 Subs Hosp L3
[2021-10-19] MEDS: Oxymetazoline 0.05% 1 SPRAY SPRAY.BTL NASAL (08:21)
[2021-10-19] MEDS: Sodium Chloride 0.65% 1 SPRAY SPRAY.BTL 2 SPRAY NASAL (09:40)
[2021-10-19] MEDS: Enoxaparin 40 MG/0.4 ML Syringe SC ×2 (09:44→21:57)
[2021-10-19] MEDS: guaiFENesin 1,200 MG Tablet 1200 MG PO ×2 (09:44→21:57)
[2021-10-19] MEDS: Ascorbic Acid 500 MG Tablet 1000 MG PO ×2 (09:44→17:31)
[2021-10-19] MEDS: 0.9% Saline Lock 10 ML Syringe IV (09:44)
[2021-10-19] MEDS: Furosemide 40 MG/4 ML Vial IV (09:44)
--- NOTE | 2021-10-19 12:50 | PN.ID_ITS ---
Physical Exam Narrative No fever, some cough and congestion Const alert General Appearance: cooperative Resp Auscultation: rhonchi and diminished lung sounds Cardio regular rate and regular rhythm GI normal to inspection, nondistended, normoactive bowel sounds Skin no rashes or lesions noted ID ID: Route of nutrition/ use of supplements: [] Nutritional Intake: [] IV Site: [] Sol Catheter: [] Assessment & Plan Assessment/Plan (1) COVID-19: PLAN: Unvaccinated. Sx since 09/11/21. Out of iso. Completed dex, baric itinib. Sputum with fungus, on vori, will order fungal workup. Will follow, thank you (2) Acute hypoxemic respiratory failure due to COVID-19:
[2021-10-19] MEDS: guaiFENesin/Codeine 5 ML UDC 10 ML PO (21:57)
--- NOTE | 2021-10-19 22:00 | CPS ---
Switched AirVo to V60 Plus with High Flow oxygen set at 70 LPM and 95%
[2021-10-20] VITALS (51 sets, daily range): BP systolic 60–198; BP diastolic 12–95; PULSE 40–137; RESP 11–75; TEMP 36.7–38.3; O2SAT 80–97
[2021-10-20 02:54] LABS: Absolute Lymphocyte Count 0.68 X10^3/uL (0.83-4.51); Absolute Neutrophil Count 13.9 X10^3/uL (2.0-7.7); Basophil# 0.02 X10^3/uL; Basophil% 0.1 % (0-1); Eosinophil# 0.43 X10^3/uL; Eosinophils% 2.8 % (0-5); Hemoglobin 12.3 g/dL (13.0-16.5); Lymphocyte # 0.68 X10^3/ul (0.83-4.51); Lymphocyte % 4.4 % (19-41); Mean Corp Hgb Conc 34.2 g/dL (32-36); Mean Corpuscular Hgb 30.3 pg (27.0-32.0); Mean Corpuscular Volume 88.7 fL (80-94); Mean Platelet Vol. 10.7 fl (6.2-12.0); Monocyte# 0.32 X10^3/uL; Monocyte% 2.1 % (0-10); NRBC Flagged by Analyzer 0 % (0-5); Neutrophil % 89.8 % (47-70); Platelet Count 426 K/mm3 (150-450); RBC Distribution Width SD 45.4 fl (35.1-43.9); Red Blood Count 4.06 M/mm3 (4.6-6.2); White Blood Count 15.5 K/mm3 (4.4-11.0)
[2021-10-20] MEDS: Ipratropium/Albuterol Sulfate 3 ML AMPUL.NEB INHALATION ×3 (03:00→19:15)
[2021-10-20 03:18] LABS: Anion Gap 8 (5-15); BUN 13 mg/dL (7-18); BUN/Creat Ratio 17.5 RATIO (10-20); Calcium,Total 8.9 mg/dL (8.5-10.1); Chloride 97 mmol/L (98-107); Creatinine, Serum 0.74 mg/dL (0.70-1.30); EST Glomerular Filtration Rate 112 mL/min (>60); Est Glom Filt Rate - Afr Amer 135 mL/min (>60); Estimated Creatinine Clearance 76.35 ml/min; Glucose 127 mg/dL (74-106); Potassium 3.6 mmol/L (3.5-5.1); Sodium Level 134 mmol/L (136-145)
--- NOTE | 2021-10-20 03:30 | CPS ---
pt placed on BIPAP due to increasing Oxygen needs. Dr. Munguia notified.
[2021-10-20] MEDS: LORazepam 2 MG/ML Syringe 0.5 MG IV (04:25)
--- NOTE | 2021-10-20 05:00 | RAD_ITS ---
STUDY: X-RAY CHEST REASON FOR EXAM: Male, 66 years old. SOB TECHNIQUE: AP COMPARISON: Chest CTA 10/16/2021, chest x-ray 10/19/2021 FINDINGS: EKG leads project over the chest. Since previous chest x-ray, increasing multilobar airspace consolidation throughout both lungs. Small cavitation of the right upper lobe is overall similar since CTA of 10/16/2021. There is no demonstrated pleural abnormality. Normal size heart. Normal mediastinum and tamela. Normal visualized pulmonary arteries. Normal visualized aortic arch and descending thoracic aorta. No acute bony process. There is no demonstrated abnormality of the visualized soft tissue structures of the upper abdomen. RAD/Chest 1 View (Portable) IMPRESSION: 1. Since previous day, worsening multilobar airspace disease/pneumonia. Right upper lobe cavitation better seen on recent chest CTA. Electronically Signed: John Christina MD ([place]) at 8:44 EST , Service support ,
[2021-10-20] MEDS: Etomidate 20 MG/10 ML Vial IV (05:21)
[2021-10-20] MEDS: Propofol 10MG/Ml 1,000 MG/100 ML Bottle 10.2 MG CONT INF (05:24)
[2021-10-20] MEDS: Propofol 200 MG/20 ML Vial 50 MG IV BOLUS (05:24)
--- NOTE | 2021-10-20 05:32 | NURSING ---
0500- [facility] monitor alarming and came into patient's room and saw that patient had ripped off bipap max and trying to get out of bed. Patient's HR dropped into 50s and O2 sats were in the 50s. FUEL CELL DESIGNER was called. Patient was placed back on bipap and helped repositioned back in bed. 0515- Dr. Munguia is at bedside preparing to intubate patient. 0518- Dr. Post is at bedside tasking over to intubate patient. 0521- Etomidate 20mg IVP given 0523- Patient intubated. 7.5mm ETT is in at 24cm @lip. Positive color change and bilateral breath sounds heard. 0524- Propofol 50mcg IVP given. Propofol gtt started at 20mcg/kg/min ordered by Dr. Post. 0525- Fentanyl gtt started at 50mcg/hr ordered by Dr. Post.
--- NOTE | 2021-10-20 05:42 | RAD_ITS ---
STUDY: X-RAY CHEST REASON FOR EXAM: Male, 66 years old. ETT placement TECHNIQUE: AP COMPARISON: Earlier today FINDINGS: Endotracheal tube is present with tip terminating at the level the clavicles. Esophagogastric tube extends to the stomach. EKG leads project over the chest. Extensive multilobar airspace disease throughout both lungs, stable. Small thick-walled cavitation in the right upper lobe measures 3.5 cm, stable (previously partially obscured with overlying EKG leads). Small pleural effusions are suspected. Normal size heart. Normal mediastinum and tamela. Normal visualized pulmonary arteries. Normal visualized aortic arch and descending thoracic aorta. No acute bony process. There is no demonstrated abnormality of the visualized soft tissue structures of the upper abdomen. RAD/Chest 1 View (Portable) IMPRESSION: 1. Satisfactory position of endotracheal and esophagogastric tubes. 2. Extensive bilateral airspace disease/pneumonia with right upper lobe cavitation. Electronically Signed: John Christina MD ([place]) at 8:27 EST , Service support ,
[2021-10-20] MEDS: Succinylcholine Chloride 200 MG/10 ML SYRINGE 50 MG IV (05:58)
[2021-10-20] MEDS: guaiFENesin/Codeine 5 ML UDC 10 ML PO (06:48)
[2021-10-20] MEDS: Acetaminophen 325 MG Tablet 650 MG PO (06:48)
--- NOTE | 2021-10-20 07:16 | PN.HOSP_ITS ---
Subjective Subjective Patient desaturated resulting in patient being intubated Objective Data Objective Data Vital Signs: Vital Signs Temp Pulse Resp BP Pulse Ox 98.1 F 125 H 24 H 169/82 H 92 10/20/21 04:00 10/20/21 05:45 10/20/21 05:45 10/20/21 04:00 10/20/21 05:45 Oxygen Flow Rate (L/min) 75 Oxygen Delivery Method Bi-pap Weight: 90.6 kg Body Mass Index (BMI) 30.1 Intake & Output: Intake and Output for Last 24 Hours 10/18/21 10/19/21 10/20/21 23:59 23:59 23:59 Intake Total 1772 / 1772 992 / 992 290.67 / 290.67 Output Total 1025 / 1025 600 / 600 Balance 747 / 747 392 / 392 290.67 / 290.67 Lab / Micro Data Result Diagrams: 10/20/21 02:45 10/20/21 02:45 Labs: Laboratory Results - last 24 hr 10/19/21 12:10: Miscellaneous Test Cancelled 10/19/21 12:10: Miscellaneous Test Cancelled 10/19/21 12:10: Miscellaneous Test Cancelled 10/20/21 02:45: Sodium 134 L, Potassium 3.6, Chloride 97 L, Carbon Dioxide 29.0, Anion Gap 8, BUN 13, Creatinine 0.74, Estim Creat Clear Calc 76.35, Est GFR ( RD) Af Amer 135, Est GFR (MDRD) Non-Af 112, BUN/Creatinine Ratio 17.5, Glucose 127 H, Calcium 8.9 10/20/21 02:45: WBC 15.5 H, RBC 4.06 L, Hgb 12.3 L, Hct 36.0 L, MCV 88.7, MCH 30.3, MCHC 34.2, RDW Std Deviation 45.4 H, RDW Coeff of [place] 14.0, Plt Count 426, MPV 10.7, Immature Gran % (Auto) 0.800, Neut % (Auto) 89.8 H, Lymph % (Auto) 4.4 L, [place] % (Auto) 2.1, Eos % (Auto) 2.8, Baso % (Auto) 0.1, Absolute Neuts (auto) 13.9 H, Absolute Lymphs (auto) 0.68 L, Nucleated RBC % 0 Micro: Microbiology 10/12/21 10:45 Sputum, Expectorated/Coughed Gram Stain - Final 10/12/21 10:45 Sputum, Expectorated/Coughed Respiratory Culture - Preliminary Possible Fungus 10/08/21 23:00 Interface Orders Streptococcus pneumoniae Antigen (M - Final 10/08/21 23:00 Interface Orders Legionella Antigen - Final 09/30/21 10:15 Blood Culture (Wb) - Right Hand Blood Culture - Final No growth in 5 days. 09/30/21 10:15 Blood Culture (Wb) - Anticubital Right Blood Culture - Final No growth in 5 days. 09/30/21 10:00 Nasal Secretion SARS-CoV-2 Antigen (Rapid) - Final Radiography Diagnostic Testing: Radiology Impression Chest X-Ray 10/19/21 06:44 IMPRESSION: Since prior study, there has been a progression of bilateral pulmonary infiltrates worse in the right hemithorax. Blunting of both costophrenic angles. Electronically Signed: Jayesh Rivera MD at 12:56 EST , Service support , Physical Exam Narrative GENERAL: cooperative but dyspneic at rest HEENT: Atraumatic; EYES; Anicteric, Normal Conjunctiva NECK; supple, normal thyroid, RESPIRATORY: Diminished to auscultation CARDIOVASCULAR: Regular S1 S2, GI: soft, normoactive bowel sounds, : No Renal angle tenderness; EXTREMITIES: No edema, no clubbing, R BKA MUSCULOSKELETAL: no muscle waisting NEURO: Awake; no lateralizing signs. SKIN: No Rash PSYCH; Flat affect Assessment & Plan Assessment/Plan (1) Acute hypoxemic respiratory failure due to COVID-19: (2) COVID-19: (3) Leukocytosis: (4) Hyponatremia: (5) Lung abscess: (6) Pneumomediastinum: PLAN: Patient is a 66-year-old gentleman admitted with acute hypoxic respiratory failure secondary to COVID-19. Patient has had a protracted course. Completed treatment with steroids, remdesivir and baricitinib. Patient hospital stay complicated by suspected fungal pneumonia and is on voriconazole 1. Acute hypoxic respiratory failure ?Secondary to SARS-CoV-2 pneumonia. Patient completed a course of Decadron remdesivir and baricitinib. Patient hospital stay complicated by suspected fungal pneumonia and pneumomediastinum - 10/20/2021:Patient desaturated resulting in patient being intubated 2. Right upper lobe 3 cm lung abscess . Patient was treated with Zosyn sputum cultures however came back positive for fungus with high suspicion for possible aspergillus in view of patient having received baricitinib. Patient was started on voriconazole infectious disease following 3. Pneumomediastinum ?Complication of patient COVID-19. Plan is to avoid positive pressure ventilation as much as possible 4. Hypokalemia -Corrected per protocol 5. Deafness Patient is able to read lips and communicates by writing 6. DVT prophylaxis ?Lovenox 7. s/p R BKA CODE STATUS -Full code Charges/Coding Visit Charges Inpatient E&M: 66696 Subs Hosp L3
[2021-10-20] MEDS: Propofol 10MG/Ml 1,000 MG/100 ML Bottle 25.5 MG CONT INF ×3 (08:26→16:13)
[2021-10-20 08:29] LABS: CPK Total, Creatine Kinase 147 U/L (39-308); Triglycerides 93 mg/dL
[2021-10-20] MEDS: Ascorbic Acid 500 MG Tablet 1000 MG PO (08:31)
[2021-10-20] MEDS: Potassium Chloride Oral Tablet 20 MEQ 40 MEQ PO (08:32)
--- NOTE | 2021-10-20 09:24 | NURSING ---
Unable to complete d/t RASS -5 w/ paralytic
--- NOTE | 2021-10-20 09:25 | NURSING ---
Endo at bedside preparing for bronch
[2021-10-20] MEDS: Polyethylene Glycol 3350 17 GM PACKET PO (10:08)
[2021-10-20] MEDS: Furosemide 40 MG/4 ML Vial IV (10:08)
[2021-10-20] MEDS: Enoxaparin 40 MG/0.4 ML Syringe SC (10:08)
--- NOTE | 2021-10-20 10:09 | OP.BRONCH_ITS ---
Patient Name: Ming Mccullough Procedure Date: 10/20/2021 10:00 AM Date of : 1955 Age: 66 Procedure: Bronchoscopy Indications: Pneumonia Providers: Ronnie Post MD Medicines: General Anesthesia Complications: No immediate complications Procedure: Pre-Anesthesia Assessment: - A History and Physical has been performed. The patient's medications, allergies and sensitivities have been reviewed. - The risks and benefits of the procedure and the sedation options and risks were discussed with the patient. All questions were answered and informed consent was obtained. - Patient identification and proposed procedure were verified prior to the procedure by the physician and the nurse. The procedure was verified in the procedure room. After I obtained informed consent, the scope was passed under direct vision. Throughout the procedure, the patient's blood pressure, pulse, and oxygen saturations were monitored continuously. The bronchoscope was introduced through the mouth, via the endotracheal tube and advanced to the tracheobronchial tree. The procedure was accomplished without difficulty. The patient tolerated the procedure well. Findings: Unable to capture pictures secondary to technical issues. The endotracheal tube is in good position. The visualized portion of the trachea is of normal caliber. The masoud is sharp. The tracheobronchial tree was examined to at least the first subsegmental level. Bronchial mucosa and anatomy are normal; there are no endobronchial lesions, and minimal secretions. No airway inflammation appreciated. BAL was performed in the RUL apical segment (B1) of the lung and sent for cell count, bacterial culture, viral smears & culture, and fungal & AFB analysis. Fluid also sent for CD4:CD8. 60 mL of fluid were instilled. 30 mL were returned. The return was cloudy and mucoid. There were no mucoid plugs in the return fluid. Impression: - Pneumonia - The airway examination was normal. - Bronchoalveolar lavage was performed. - The airway examination was normal. Recommendation: - Observe patient in ICU for ongoing care. - Await BAL and washing results. Procedure Code(s): --- Professional --- 52968, Bronchoscopy, rigid or flexible, including fluoroscopic guidance, when performed; diagnostic, with cell washing, when performed (separate procedure) Diagnosis Code(s): --- Professional --- J18.9, Pneumonia, unspecified organism CPT copyright 2017 [employer]. All rights reserved. The codes documented in this report are preliminary and upon composition roofer review may be revised to meet current compliance requirements. MD Ronnie Ponce MD 10/20/2021 10:08:35 AM This report has been signed electronically. Number of Addenda: 0 Note Initiated On: 10/20/2021 10:00 AM
--- NOTE | 2021-10-20 10:13 | PN.CC_ITS ---
Assessment & Plan Assessment/Plan (1) COVID-19: (2) Acute hypoxemic respiratory failure due to COVID-19: PLAN: RECOMMENDATIONS: 1. Paralytics for 24 hours 2. Follow up BAL 3. Ok to start tube feeds at 10 mL only 4. Antimicrobials per ID 5. Agree with Vfend pending ID recommendations. Defer to ID on empiric antibiotics 6. Recheck chest x-ray given persistent leukocytosis. Panculture with fever IMPRESSIONS: 1. Acute hypoxic respiratory failure secondary to COVID-19 The patient presented to the hospital with a protracted clinical course. The patient has completed treatment courses of both Decadron and antimicrobials. He remains on baricitinib and Lovenox. We will continue to diurese intermittently as labs allow. The patient does not appear to be significantly volume overloaded clinically. CTA chest showed no evidence for PE. Continue to wean supplemental oxygen to maintain saturations at or above 90%. Continue scheduled bronchodilators as ordered. Patient with rapid decompensation on 10/20 requiring intubation and bronchoscopy. Bronchoscopy was not suggestive on pneumonia on visual inspection. Await BAL studies. Recent pneumomediastinum with high initial peak pressures. Paralytics for 24 hours. Monitor for recurrence. 2. Unvaccinated status/lack of PCP/advanced age/poor insight Complicates care, management, recovery and prognosis. Case management should initiate patient with a PCP on discharge. Addendum 1:30 PM: Called to the patient's room at approximately 12:45 PM secondary to bradycardia and hypotension. Patient was found to be in third-degree heart block for approximately a minute with associated hypotension. Patient was given a 500 cc bolus and initiated on pressors. This resolved spontaneously. Follow- up EKG showed a left bundle branch block. Cardiology has been notified. Addendum 3:19 PM: Family called to the bedside. Extensive conversation about patient's current situation. Patient's family states that they are not ready to change his CODE STATUS at this time, but want to continue with current therapy. No escalation in therapy at this time. Family is leaning towards comfort measures. They are aware of the potential plans for temporary pacer wire, but it was also made clear that this may not completely solve the current issues Addendum 4:08 PM: Discussed with family at the bedside. They wish to change the patient's CODE STATUS to DNR Comfort Care arrest. They are requesting aggressive therapy for hi s hypotension, but feel that a pacemaker was too invasive at this time. They do not want him to receive CPR as this will likely be ineffective as sick as he is. Appropriate orders have been placed TIME: 110 minutes, independent of bronchoscopy, spent addressing patient's respiratory failure, reviewing all data and collaborating with care team Subjective Subjective Patient with significant difficulties overnight. Attempted bipap with marginal success. Confirmed code status by writing per nursing overnight. On my arrival around 5:15 AM, rapid response underway after patient removed bipap, became hypoxic and bradycardic. Patient intubated by myself using etomidate. After intubation, unable to ventilate given peak pressures and was paralyzed. Objective Data Objective Data Intubation Indication: Hypoxic Respiratory Failure Consent was obtained from: Emergent The patient was placed in the appropriate sniffing position. Preoxygenated sedation via BMV was provided for a minimum of 3 minutes. The patient had continuous cardiac as well as pulse oximetry monitoring during the procedure. Procedure sedation was provided by the administration of etomidate 20 mg. Direct laryngoscopy was then performed using a number 4 blade, which revealed a grade 2 view. A 7.5 mm endotracheal tube was visualized advancing between the cords to the level of 25 cm at the lip. The stylette was then removed and discarded. Tube placement was confirmed by fogging in the tube along with equal and bilateral breath sounds. Colorimetric change was visualized on the CO2 meter. The cuff was then inflated and the tube secured using a commercially available device. A good pulse oximetry waveform was seen on the monitor throughout the procedure. A portable chest x-ray has been ordered to confirm appropriate placement. The patient tolerated the procedure well. Vital Signs: Vital Signs Temp Pulse Resp BP Pulse Ox 37.7 C H 133 H 14 95/69 92 10/20/21 09:00 10/20/21 09:00 10/20/21 09:00 10/20/21 09:00 10/20/21 09:00 Oxygen Flow Rate (L/min) 75 Oxygen Delivery Method Mechanical Ventilator Weight: 90.6 kg Body Mass Index (BMI) 30.1 Intake & Output: Intake and Output for Last 24 Hours 10/18/21 10/19/21 10/20/21 23:59 23:59 23:59 Intake Total 1772 / 1772 992 / 992 482.58 / 482.58 Output Total 1025 / 1025 600 / 600 Balance 747 / 747 392 / 392 482.58 / 482.58 Lab / Micro Data Result Diagrams: 10/20/21 02:45 10/20/21 02:45 Labs: Laboratory Results - last 24 hr 10/19/21 12:10: Miscellaneous Test Cancelled 10/19/21 12:10: Miscellaneous Test Cancelled 10/19/21 12:10: Miscellaneous Test Cancelled 10/20/21 02:45: Sodium 134 L, Potassium 3.6, Chloride 97 L, Carbon Dioxide 29.0, Anion Gap 8, BUN 13, Creatinine 0.74, Estim Creat Clear Calc 76.35, Est GFR (M DRD) Af Amer 135, Est GFR (MDRD) Non-Af 112, BUN/Creatinine Ratio 17.5, Glucose 127 H, Calcium 8.9 10/20/21 02:45: WBC 15.5 H, RBC 4.06 L, Hgb 12.3 L, Hct 36.0 L, MCV 88.7, MCH 30.3, MCHC 34.2, RDW Std Deviation 45.4 H, RDW Coeff of [place] 14.0, Plt Count 426, MPV 10.7, Immature Gran % (Auto) 0.800, Neut % (Auto) 89.8 H, Lymph % (Auto) 4.4 L, [place] % (Auto) 2.1, Eos % (Auto) 2.8, Baso % (Auto) 0.1, Absolute Neuts (auto) 13.9 H, Absolute Lymphs (auto) 0.68 L, Nucleated RBC % 0 10/20/21 02:48: Total Creatine Kinase 147, Triglycerides 93 Micro: Microbiology 10/12/21 10:45 Sputum, Expectorated/Coughed Gram Stain - Final 10/12/21 10:45 Sputum, Expectorated/Coughed Respiratory Culture - Preliminary Possible Fungus 10/08/21 23:00 Interface Orders Streptococcus pneumoniae Antigen (M - Final 10/08/21 23:00 Interface Orders Legionella Antigen - Final 09/30/21 10:15 Blood Culture (Wb) - Right Hand Blood Culture - Final No growth in 5 days. 09/30/21 10:15 Blood Culture (Wb) - Anticubital Right Blood Culture - Final No growth in 5 days. 09/30/21 10:00 Nasal Secretion SARS-CoV-2 Antigen (Rapid) - Final Radiography Diagnostic Testing: Radiology Impression Chest X-Ray 10/19/21 06:44 IMPRESSION: Since prior study, there has been a progression of bilateral pulmonary infiltrates worse in the right hemithorax. Blunting of both costophrenic angles. Electronically Signed: Jayesh Rivera MD at 12:56 EST , Service support , Chest X-Ray 10/20/21 05:00 IMPRESSION: 1. Since previous day, worsening multilobar airspace disease/pneumonia. Right upper lobe cavitation better seen on recent chest CTA. Electronically Signed: John Christina MD (Brooks) at 8:44 EST , Service support , Chest X-Ray 10/20/21 05:42 IMPRESSION: 1. Satisfactory position of endotracheal and esophagogastric tubes. 2. Extensive bilateral airspace disease/pneumonia with right upper lobe cavitation. Electronically Signed: John Christina MD (Brooks) at 8:27 EST , Service support , Physical Exam Const General Appearance: in distress Positive for severe (prior to intubation) and ill appearing HEENT normocephalic and head/scalp atraumatic Eyes PERRL, EOMs intact bilaterally and conjunctivae normal Neck supple General: trachea midline Chest inspection of chest normal Chest Narrative: Crepitus appears to be resolved Chest: symmetrical chest wall rise and crepitus clavicle right Resp Effort and Inspection: symmetric chest movement and tachypneic Auscultation: rhonchi throughout and diminished lung sounds; Negative for rales or wheezes Cardio regular rhythm, no murmurs, no rub and no gallops Rate: tachycardic GI normal to inspection, nondistended, normoactive bowel sounds Extremity no clubbing, cyanosis or edema Extremity Narrative: Right BKA Skin no rashes or lesions noted Neuro CN's II-XII intact bilaterally and no focal motor deficits Psych cooperative and affect normal Charges/Coding Procedures Hospitalists Procedures: 62938 Critial Care 1st Hr Multi Select Codes Hospitalists' Procedures Procedures: 57705 Critial Care Addl 30 Min (X2, 110 minutes total critical care time)
[2021-10-20] MEDS: Famotidine 20 MG Tablet GT (10:15)
[2021-10-20 10:25] LABS: Allen Test Positive; Base Excess 9 mmol/L (-2 to +2); Bicarbonate 37.9 mmol/L (22-26); Blood Gas Specimen Type ART; FI02 90; Mode AC; O2 Delivery Device Adult Vent; PEEP 10; PO2 70 mmHG (75-100); RR 12; SITE R Radial; SO2 85 % (95-99); Total Carbon Dioxide 42 mmol/L; Vt 400; pCO2 117.2 mmHg (35-45); pH 7.12 (7.35-7.45)
--- NOTE | 2021-10-20 11:25 | PCM.PN.ID ---
Physical Exam Narrative Intubated this AM with worsening hypoxia. Bronch done. Low grade fever. Const Constitutional Narrative: intubated Resp Effort and Inspection: mechanically ventilated Auscultation: rhonchi Cardio regular rate and regular rhythm GI normal to inspection, nondistended, normoactive bowel sounds Skin no rashes or lesions noted ID ID: Route of nutrition/ use of supplements: [] Nutritional Intake: [] IV Site: [] Sol Catheter: [] Assessment & Plan Assessment/Plan (1) COVID-19: PLAN: Unvaccinated. Sx since 09/11/21. Out of iso. Completed dex, baricitinib. Sputum with fungus, on vori, pending fungal workup. Now intubated, BAL sent. Will follow (2) Acute hypoxemic respiratory failure due to COVID-19:
--- NOTE | 2021-10-20 12:03 | CASEMGMT ---
Social Work SW participated in ICU rounds this morning. SW called , message left to offer support. SW remains available for support to and family. BELLA Leigh
[2021-10-20] MEDS: Chlorhexidine 15 ML PO ×2 (12:28→20:13)
[2021-10-20] MEDS: CHLORHEXIDINE GLUC 2% CLOTH 1 EACH TOWELETTE TOPICAL (12:28)
--- NOTE | 2021-10-20 12:42 | NURSING ---
At approx 1242 pt developed complete heart block and hypotension. Pt remained with a pulse. WIRELESS COMMUNICATIONS ENGINEER activated. New order for pressors, IVF bolus, EKG, and transcutaneous pacing to begin with another episode- pacer pads in place hooked up to defibrillator at this time.
--- NOTE | 2021-10-20 13:34 | EKG12_ITS ---
Test Reason : HEARTBLOCK Blood Pressure : / mmHG Vent. Rate : 115 BPM Atrial Rate : 115 BPM P-R Int : 142 ms QRS Dur : 150 ms QT Int : 372 ms P-R-T Axes : 033 000 163 degrees QTc Int : 514 ms Poor data quality, interpretation may be adversely affected Sinus tachycardia Left bundle branch block Abnormal ECG Confirmed by RENETTA KINNEY, SHER ([id number]), online editor CHIDI KATZ ([id number]) on 10/22/2021 8:28:28 AM Referred By: KRAIG Confirmed By:SHER JACKSON MD
--- NOTE | 2021-10-20 14:37 | CHAPLAIN ---
Type of Pastoral Visit ___ Initial Visit ___ Follow-up Visit ___ On-call Visit ___ General Patient Visit ___ Spiritual Assessment ___ Family Conference ___ Bereavement _x__ Rapid Response _x__ Code Blue ___ Other (describe below) Pastoral Care Referral From ___ Patient ___ Family ___ Nurse ___ Physician ___ Associate Product Integrity Engineer ___ Mortar Maker _x__ Other (describe below) Sacrament/Intervention ___ Active listening ___ Anointing ___ Mandaen ___ Bereavement ___ Communion ___ Meghan exploration ___ ___ Life review ___ Prayer ___ Reconciliation ___ Sacrament of Sick _x__ Supportive presence ___ Wedding ___ Other (describe below) Pastoral Comments during shift arrived to patient room for two rapid responses call and then a code blue; decisions for care will be made by family who have been called and will be arriving to hospital yet this afternoon; will meet family along with medical team; support and presence will be offered for family
--- NOTE | 2021-10-20 14:40 | CON.PCM.CA_ITS ---
Assessment & Plan Assessment/Plan (1) Atrioventricular conduction disorder: PLAN: The patient has demonstrated development of high-grade AV block. Initially it appeared to occur when he was reported as being hypoxic prior to mechanical intubation/ventilation. However, he has now demonstrated recurrent evidence of this status post mechanical intubation/ventilation. The patient has undergone previous noninvasive cardiovascular studies which have included cardiac enzyme levels/troponin I levels which were negative and a transthoracic echocardiogram with the findings as noted above. The patient is not reported to have been on rate limiting therapy. The patient's electrolytes were evaluated with no evidence of obvious hypokalemia, etc. The etiology of the high-grade A-V block is uncertain at this time, however, there would be concerns that it could be related to his underlying noncardiac metabolic status secondary to his underlying pulmonary disease process/infections, etc. The patient has required temporary support with agents such as IV atropine, IV epinephrine, and temporary transcutaneous pacemaker in. The patient's may require temporary transvenous pacemaker. The patient does not appear to be an ideal candidate based upon his extensive noncardiovascular comorbidities and the appearance of a poor prognosis from his pulmonary disease process, for a permanent pacemaker. (2) Acute hypoxemic respiratory failure due to COVID-19: PLAN: The patient does have acute hypoxic respiratory failure thought secondary to his COVID-19 process. He is now requiring mechanical intubation/ventilation. (3) Lung abscess: PLAN: She does report is having a lung abscess. Per the [facility] medical staff there is concerns he may have an underlying fungal pneumonia. He continues evaluation care per internal medicine, infectious disease, and pulmonology/critical care medicine. Based upon the ongoing infectious disease processes he is not an ideal candidate for placement of a permanent indwelling pacemaker. (4) Pneumomediastinum: PLAN: The patient has also been reported as having a pneumomediastinum. This has made his pulmonary care more challenging. Addt'l Comments Overall, at the present time, the patient is continue in the ICU with continued conservative supportive therapy. The ICU staff has contacted the patient's family to discuss his condition and poor prognosis and consideration for comfort care status versus proceeding with continue medical therapy/support and/or invasive therapy/support such as a temporary transvenous pacemaker knowing the patient is not an ideal candidate for a permanent pacemaker. The patient's case has been discussed and reviewed with Dr. John and Dr. Post. This note was generated using a voice recognition system and there may be incorrect words, spelling or punctuation that were not noted when reviewing the office note prior to saving. HPI Consult Data Date of Consult: 10/20/21 HPI Narrative HPI Narrative: BELLO SANTIAGO, is a 66-year-old white male who presents for cardiovascular consultation for concerns of high-grade AV block superimposed upon COVID-19 pneumonia (currently out of isolation) and possible fungal pneumonia as well as findings of a lung abscess and a pneumomediastinum who is currently mechanically intubated/ventilated in the ICU. According to the [facility] medical staff/medical records the patient presented with worsening shortness of breath/dyspnea at home and was diagnosed with COVID- 19 pneumonia. He was treated medically. However, his pulmonary course has de teriorated. He was subsequently placed in the ICU and required mechanical intubation/ventilation. During this time he has undergone noninvasive cardiovascular studies. His ECG demonstrated sinus rhythm with a left bundle branch block pattern. He had a transthoracic echocardiogram performed which ported his LV systolic function/LVEF to be within normal range. He did not require additional car diovascular studies. He has continued medical therapy/support for the aforementioned concerns of CO VID-19 pneumonia and a possible fungal pneumonia superimposed upon concerns of a lung abscess and a pneumomediastinum. This day he was reported as becoming hypoxic and subsequently bradycardic. He required mechanical intubation/ventilation. Following that he was noted to be in sinus rhythm and then developed what appeared to be high-grade AV block. He was subsequently treated with supportive medical therapy including IV Levophed to assist with supporting blood pressure. He was noted to have return to sinus rhythm. However, he subsequently had recurrence of his high-grade AV block requiring IV atropine, IV epinephrine, and temporary transcutaneous pacemaker. [facility] Medical History Atrioventricular conduction disorder Deaf Smoker Medical History unable to obtain Home Medications NK 09/30/21 [History Last Taken Unknown] Allergy/AdvReac Type Severity Reaction Status Date / Time No Known Allergies Allergy Verified 09/30/21 10:01 Family History Other CVA (cerebral vascular accident) Cancer Surgical History no surgical history Social History Smoking Status: Current every day smoker tobacco type: cigarettes substance use type: does not use ROS Review of Systems ROS Unobtainable: other Details: Due to mechanical intubation/ventilation Physical Exam Narrative This is a 66-year-old white male who appears to be older than stated age and appears to be pale at this time and has received mechanical intubation /ventilation. Neck no JVD Resp Auscultation: rhonchi Cardio regular rate, regular rhythm, S1 normal heart sound and S2 normal heart sound Cardio Narrative: Distant heart tones GI normal to inspection, nondistended, normoactive bowel sounds Extremity no pedal edema Extremity Narrative: Right BKA Skin Skin Narrative: Lower extremities: Mottled appearing Risk Stratification Risk Stratification Applicable: No Procedure Criteria Type of Procedure Procedure Type: Elective Elective Risks - COVID COVID Risk Discussion: The surgeon/proceduralist and patient have discussed in detail the risk of exposure to and/or potential harm posed by the COVID-19 virus with having a surgery/procedure at this time versus the risk of delaying the surgery/procedure. It is not possible to know either the risk of delaying the surgery or procedure or chance of getting an infection with perfect accuracy, but a joint decision was made between the patient and the surgeon/proceduralist to proceed at this time with the scheduled surgery/procedure as indicated on the consent form. Objective Data Vital Signs: Vital Signs Temp Pulse Resp BP Pulse Ox 98.5 F 113 H 18 72/44 L 96 10/20/21 13:36 10/20/21 13:36 10/20/21 13:36 10/20/21 14:36 10/20/21 13:36 Oxygen Flow Rate (L/min) 75 Oxygen Delivery Method Mechanical Ventilator Weight: 199 lb 11.821 oz Body Mass Index (BMI) 30.1 Intake & Output: Intake and Output for Last 24 Hours 10/18/21 10/19/21 10/20/21 23:59 23:59 23:59 Intake Total 1772 / 1772 992 / 992 1076.90 / 1076.90 Output Total 1025 / 1025 600 / 600 250 / 250 Balance 747 / 747 392 / 392 826.90 / 826.90 Lab / Micro Data Result Diagrams: 10/20/21 02:45 10/20/21 02:45 Labs: Laboratory Results - last 24 hr 10/20/21 02:45: Sodium 134 L, Potassium 3.6, Chloride 97 L, Carbon Dioxide 29.0, Anion Gap 8, BUN 13, Creatinine 0.74, Estim Creat Clear Calc 76.35, Est GFR (MDRD) Af Amer 135, Est GFR (MDRD) Non-Af 112, BUN/Creatinine Ratio 17.5, Glucose 127 H, Calcium 8.9 10/20/21 02:45: WBC 15.5 H, RBC 4.06 L, Hgb 12.3 L, Hct 36.0 L, MCV 88.7, MCH 30.3, MCHC 34.2, RDW Std Deviation 45.4 H, RDW Coeff of [place] 14.0, Plt Count 426, MPV 10.7, Immature Gran % (Auto) 0.800, Neut % (Auto) 89.8 H, Lymph % (Auto) 4.4 L, [place] % (Auto) 2.1, Eos % (Auto) 2.8, Baso % (Auto) 0.1, Absolute Neuts (auto) 13.9 H, Absolute Lymphs (auto) 0.68 L, Nucleated RBC % 0 10/20/21 02:48: Total Creatine Kinase 147, Triglycerides 93 ABG Data ABG results: ABG 10/20/21 10:19 Specimen Type ART Sample Site R Radial pH 7.12 L* Bicarbonate Actual 37.9 H Total CO2 42 Base Excess 9 H O2 Saturation 85 L O2 % 90 ABG pCO2 117.2 H* ABG pO2 70 L Olman Test Positive Respiration Rate 12 O2 Delivery Device Adult Vent Vent Mode AC Tidal Volume 400 POC PEEP 10 Crit Call To/Read Back Yes Blood Gas Notified Whom [facility] Labs/Tests 10/20/21 02:45: Sodium 134 L, Potassium 3.6, Chloride 97 L, Carbon Dioxide 29.0, Anion Gap 8, BUN 13, Creatinine 0.74, Est GFR (MDRD) Af Amer 135, Est GFR (MDRD) Non-Af 112, BUN/Creatinine Ratio 17.5, Glucose 127 H, Calcium 8.9 10/20/21 02:45: WBC 15.5 H, RBC 4.06 L, Hgb 12.3 L, Hct 36.0 L, MCV 88.7, MCH 30.3, MCHC 34.2, Plt Count 426, MPV 10.7, Immature Gran % (Auto) 0.800, Neut % (Auto) 89.8 H, Lymph % (Auto) 4.4 L, [place] % (Auto) 2.1, Eos % (Auto) 2.8, Baso % (Auto) 0.1, Absolute Neuts (auto) 13.9 H, Nucleated RBC % 0 10/20/21 02:48: Triglycerides 93 10/20/21 10:19: pH 7.12 L*, Bicarbonate Actual 37.9 H, Base Excess 9 H, O2 Saturation 85 L, ABG pCO2 117.2 H*, ABG pO2 70 L, Olman Test Positive Rhythm: As noted above EKG: Sinus rhythm; left bundle branch block ECHO: 10-06-21 Interpretation Summary Normal LV size. Left ventricular systolic function is normal. The estimated ejection fraction is 55 %. There is mild to moderate mitral annular calcification. Pulmonary artery systolic pressure is 34 mmHg. Radiography Diagnostic Testing: Radiology Impression Chest X-Ray 10/20/21 05:00 IMPRESSION: 1. Since previous day, worsening multilobar airspace disease/pneumonia. Right upper lobe cavitation better seen on recent chest CTA. Electronically Signed: John Christina MD (Brooks) at 8:44 EST , Service support , Chest X-Ray 10/20/21 05:42 IMPRESSION: 1. Satisfactory position of endotracheal and esophagogastric tubes. 2. Extensive bilateral airspace disease/pneumonia with right upper lobe cavitation. Electronically Signed: John Christina MD (Brooks) at 8:27 EST , Service support ,
--- NOTE | 2021-10-20 15:25 | NURSING ---
Dr. Post at bedside with several family members to discuss goals of care. Family requesting no escalation of care at this time but to have some time to process current status of pt. Red Hat Engineer at bedside as well.
[2021-10-20] MEDS: Atropine Sulfate 1 MG/10 ML Syringe IV (20:08)
[2021-10-20] MEDS: Morphine 2 MG/ML Syringe IV ×2 (21:00→21:30)
[2021-10-20] MEDS: LORazepam 2 MG/ML Syringe IV ×2 (21:00→21:30)
--- NOTE | 2021-10-20 23:05 | NURSING ---
2099- Family is at bedside including -Melissa, daughter- Caitlin, son and another daughter. All are in agreement to making patient a DNRCC and terminally extubate patient. Dr. Post was called at 2104 and updated on patient's condition and family's decision. Orders were placed for Ativan and morphine and to terminally extubate patient. 2114- Meds were given per order and patient was extubated to 2L/NC for comfort. All continuous drips are off. Family is at bedside. Patient appears comfortable at this time.
--- NOTE | 2021-10-20 23:10 | NURSING ---
2144- Patient is asystole on monitor. Dr. Ernst is notified. No heart or lung sounds are heard. No pupillary response to light. Johnson Yoon RN also assessed patient to verify patient is . Time of is 2144.
--- NOTE | 2021-10-21 08:15 | PCM.DEATH ---
Preliminary Cause of Preliminary Cause of Preliminary Cause of : COVID 19 pneumonia Principle Diagnosis Problem List: Active and Suspected Problems (Updated 10/20/21 @ 14:[address] Kendrick Avelar MD) Atrioventricular conduction disorder (Acute) Pneumomediastinum (Acute) Lung abscess (Acute) Hyponatremia (Acute) Leukocytosis (Acute) COVID-19 (Acute) Acute hypoxemic respiratory failure due to COVID-19 (Acute) Hospital Course Patient is a 66-year-old gentleman admitted with acute hypoxic respiratory failure secondary to COVID-19. Patient has had a protracted course. Completed treatment with steroids, remdesivir and baricitinib. Patient hospital stay complicated by pneumomediastinum and suspected fungal pneumonia for which patient was started on voriconazole patient did experience rapid deterioration in her respiratory status resulting in patient being intubated patient further did experience several episodes of complete heart blocks. Transcutaneous pacing was initiated. Discussions held with patient's family regarding his clinical condition and prognosis. Decision was made to change patient CODE STATUS to DNR CC. Patient was found without spontaneous breathing and heart tones on 10/20/2021 at 2145. Patient was pronounced Visit Charges Inpatient E&M: 63566 Disch Hosp
[2021-10-22 22:06] LABS: Aspirgillus flavus Negative (Neg:<1:1); Aspirgillus fumigatus Negative (Neg:<1:1); Aspirgillus niger Negative (Neg:<1:1); Histoplasma Abs Negative (Neg:<1:1)
[2021-10-23 08:13] LABS: Cryptococcus Ag, Serum Negative (Negative)
== END 2021-10-20 21:45 | DRG 208 ==
LOC: ED 11:47 → MS3 12:24 → ICU 10-16 19:17
PROVIDERS: Internal Medicine; Internal Medicine Critical Care Medicine; Internal Medicine Infectious Disease; Admitting Provider Family Medicine; Emergency Provider Emergency Medicine; PCP Family Medicine; Visit Provider Internal Medicine
PROC: 0BJ08ZZ Inspection of Tracheobronchial Tree, Via Natural or Artificial Opening Endoscopic (ICD-10-PCS; CPT 31622; principal; 2021-10-20 09:15)
DX: U07.1 COVID-19 (principal); J12.82 Pneumonia due to coronavirus disease 2019; J96.01 Acute respiratory failure with hypoxia; J85.1 Abscess of lung with pneumonia; E87.1 Hypo-osmolality and hyponatremia; I44.2 Atrioventricular block, complete; B44.9 Aspergillosis, unspecified; J98.2 Interstitial emphysema; H91.90 Unspecified hearing loss, unspecified ear; E87.6 Hypokalemia; I44.7 Left bundle-branch block, unspecified; Z66 Do not resuscitate; F17.210 Nicotine dependence, cigarettes, uncomplicated; Z89.511 Acquired absence of right leg below knee
CPT/HCPCS: 31500; 36415; 36569; 36600; 71045; 71275; 80048; 80053; 82550; 82803; 83605; 83880; 84145; 84478; 84484; 85025; 85027; 85379; 86606; 86698; 87040; 87070; 87077; 87107; 87205; 87426; 87449; 87635; 87641; 87899; 93005; 93306; 94002; 94003; 94640; 94660; 94667; 94668; 94762; 97162; 97166; 97802; 99251; 99285; 99406; J7030; J7040; J7050; Q9967; U0005; A4216; G0463; J1940; J3010; J3465; J3490; U0003